=== PATIENT | male | born 1965 | race Caucasian/White ===

== ENCOUNTER 2024-05-23 14:08 | Outpatient (AMB) | payer OTHER, SELFPAY ==
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
[2024-05-23 14:25] VITALS: BP 148/82; PULSE 155; RESP 20; TEMP 36.8; O2SAT 98; BMI 29.3
== END 2024-05-23 15:14 | disposition home or self-care (01) ==
LOC: HO.HMCC 14:09
PROVIDERS: Visit Provider Internal Medicine
DX: M16.11 Unilateral primary osteoarthritis, right hip (principal); I47.10 Supraventricular tachycardia, unspecified; Z00.00 Encounter for general adult medical examination without abnormal findings

== ENCOUNTER → 2024-05-23 14:08 | Outpatient (BNVA) | payer OTHER, SELFPAY | PROVIDERS: Visit Provider Internal Medicine | DX: Z00.00 Encounter for general adult medical examination without abnormal findings (principal); M16.11 Unilateral primary osteoarthritis, right hip; I47.10 Supraventricular tachycardia, unspecified | CPT/HCPCS: 96127 ==

== ENCOUNTER 2024-06-02 12:25 | Outpatient (REF) | payer OTHER, SELFPAY ==
[2024-06-02 16:16] LABS: MANUAL DIFF FLAG NO
[2024-06-02 16:21] LABS: Appearance Urine Clear; Color Urine Yellow; Glucose Urine UA Negative (Negative); Leukocyte Esterase Urine Negative (Negative); Nitrite Urine Negative (Negative); PH 5.5 (5.0-9.0); UMIC TRIGGER UA YES; Urine Blood Trace (Negative); Urine Ketones Negative (Negative); Urine Protein 100 (2+) mg/dL (Neg-Trace)
[2024-06-02 16:25] LABS: Bacteria Urine None Seen (None Seen); Hyaline Casts Urine 0-2 /LPF (0-2); RBC Urine 0-2 /HPF (0-2); Squamous Epithelial Cell Urine 0-2 /HPF (0-2); WBC Urine 0-5 /HPF (0-5)
[2024-06-02 17:18] LABS: Basophils Absolute Auto 0.1 X10*3/uL (0.0-0.2); Basophils Percent Auto 0.9 % (0-2); Eosinophils Absolute Auto 0.3 X10*3/uL (0.0-0.4); Eosinophils Percent Auto 2.7 % (0-4); Hematocrit 35.9 % (42.0-52.0); Hemoglobin 11.7 g/dl (14.0-18.0); Imm Gran Abs Auto 0.06 X10*3/uL (0.00-0.03); Imm Gran Pct Auto 0.5 % (0.0-0.4); Lymphocytes Absolute Auto 4.5 X10*3/uL (1.2-4.9); Lymphocytes Percent Auto 36.3 % (20-40); Mean Corpuscular HGB Conc 32.6 g/dl (31.0-36.0); Mean Corpuscular Hemoglobin 28.4 pg (27.0-33.0); Mean Corpuscular Volume 87.1 fL (80.0-98.0); Mean Platelet Volume 11.6 fL (9.4-12.4); Monocytes Absolute Auto 0.7 X10*3/uL (0.1-1.2); Monocytes Percent Auto 5.4 % (2-11); Neutrophils Absolute Auto 6.7 x10*3/uL (2.0-8.3); Neutrophils Percent Auto 54.2 % (45-73); Platelet Count 337 X10*3/uL (160-400); Red Blood Count 4.12 X10*6/uL (4.60-5.80); Red Cell Distribution Width 15.9 % (11.0-16.0); White Blood Count 12.4 X10*3/uL (4.8-10.8)
[2024-06-02 17:19] LABS: PSA,Total (Free>4and<10) 1.51 ng/mL (0.00-4.00)
[2024-06-02 17:42] LABS: Alanine Aminotransferase 24 U/L (0-40); Albumin Level 4.7 g/dL (3.5-5.0); Anion Gap 21 (12-20); Aspartate Amino Transferase 19 U/L (5-37); Bilirubin Total 0.4 mg/dL (0.0-1.0); Blood Urea Nitrogen 99 mg/dL (9-16); Carbon Dioxide 17 mmol/L (22-29); Chloride 109 mmol/L (96-108); Cholesterol 277 mg/dL (<200); HDL Cholesterol 35 mg/dL (>40); LDL Cholesterol Calculated 164 mg/dL (<100); Potassium 4.6 mmol/L (3.3-5.1); Sodium 142 mmol/L (135-145); Total Protein 8.7 g/dL (6.5-8.0); Triglycerides 391 mg/dL (<150)
[2024-06-02 17:55] LABS: Alkaline Phosphatase 103 U/L (39-117); Estimated Glomerular Filt Rate 13; Glucose Fasting 115 mg/dL (60-99)
[2024-06-02 18:06] LABS: TSH reflex Free T4 1.95 uIU/mL (0.32-4.0)
== END 2024-06-02 12:26 | disposition home or self-care (01) ==
LOC: HO.HMGCLDS 12:25
PROVIDERS: PCP Internal Medicine; Visit Provider Internal Medicine
DX: Z00.00 Encounter for general adult medical examination without abnormal findings (principal); R00.0 Tachycardia, unspecified; Z12.5 Encounter for screening for malignant neoplasm of prostate; Z13.6 Encounter for screening for cardiovascular disorders
CPT/HCPCS: 36415; 80053; 80061; 81001; 84153; 84443; 85025

== ENCOUNTER 2024-06-08 10:47 | Outpatient (AMB) | payer OTHER, SELFPAY ==
[2024-06-08 11:26] VITALS: BP 132/86; PULSE 102; O2SAT 97; BMI 28.8
--- NOTE | 2024-06-08 11:26 | MHC.PC.OV ---
Vital Signs 06/08/24 11:26 Height 5 ft 10.87 in Weight 206 lb BMI 28.8 BP 132/86 Blood Pressure Location Rt brachial Position Sitting Pulse 102 H Pulse Source Pulse Oximeter Pulse Oximetry (%) 97 Oxygen Delivery Method Room Air Intake Visit Reasons: 2 weeks f/up Intake Note: Pt is here today for 2 weeks follow up visit. Allergies No Known Allergies Allergy (Verified 06/08/24 11:29) Medication List - Last Reconciled 06/08/24 by Talya Harrington MD allopurinol 100 mg PO DAILY aspirin 81 mg PO DAILY atorvastatin (Lipitor) 20 mg PO DAILY bisoprolol fumarate 7.5 mg (1.5 x 5 mg) PO DAILY calcitriol 0.5 mcg PO DAILY coenzyme Q10 (Ultra CoQ10) PO Tobacco use date assessed: 06/08/24 Dental Screening Dental Screen Date: 05/23/24 HPI 2 weeks f/up HPI Details Patient presents for follow-up of hypertension. Patient was found to have stage 3/5 chronic kidney disease on blood work. He was hospitalized at [facility] for 3 days and evaluated by chainstitch binder. Patient will have kidney biopsy next week but most likely the kidney disease is secondary to untreated hypertension for many years. Patient has been tolerating bisoprolol well. [facility] Medical History (Updated 06/08/24 @ 15:22 by Talya Harrington MD) Hypertension Osteoarthritis of right hip Tachycardia SVT (supraventricular tachycardia) FHx: colon cancer Hypertensive kidney disease, stage IV Hyperlipidemia Surgical History No pertinent past surgical history Family History Father Colon cancer, Onset Age: 77 Mother Breast CA, Onset Age: 66 Social History Household Members Other:: , Housing: House Patient Tobacco Use Status: Never used Tobacco e-Cigarette/Vaping Use: Never Used service: No Current occupational status: employed Cognitive needs: No Hearing needs: No Vision needs: Yes Questionnaire Thrive Questionnaire Date Thrive assessed: 05/23/24 I am a: Patient What is your living situation today?: I have a steady place to live Within the past 12 months, did the food you bought not last and you didn't have the money to get more?: Never true Within the past 12 months, did you worry whether your food would run out before you got money to buy more?: Never true Do you have trouble paying for medicines?: No Do you have trouble getting transportation to medical appointments?: No Do you have trouble paying your heating and electricity bill?: No Do you have trouble taking care of your child, family member or friend?: No Do you have trouble with day-to-day activities such as bathing, preparing meals, shopping, managing finances, etc.?: No Are you currently unemployed and looking for a job?: No Are you interested in more education?: No Please select the resources that you would like help with: None Currently or been in a relationship where the following occur: No concerns reported THRIVE Score: 0 JOVANA-7 AMB Questionnaire JOVAAN-7 Date JOVANA - 7 assessed: 05/23/24 Source: Developed by Drs. Peng Huston, Karen Menendez, Casper Omer and colleagues, with an educational cassia from [employer]. Review of Systems Const All systems reviewed & are unremarkable except as noted in HPI and below Eyes Reports no additional complaints ENT Reports no additional complaints Card Reports no additional complaints Resp Reports no additional complaints GI Reports no additional complaints Reports no additional complaints Physical exam (Primary Care) Vital Signs: Last Vital Signs Pulse 102 H 06/08/24 11:26 BP 132/86 06/08/24 11:26 Pulse Ox 97 06/08/24 11:26 Oxygen Delivery Method Room Air 06/08/24 11:26 BMI result Body Mass Index 28.8 Tobacco/Smoking Status: Tobacco use Status Tobacco use date assessed 06/08/24 06/08/24 11:30 Patient Tobacco Use Status Never used Tobacco 06/08/24 11:26 e-Cigarette/Vaping Use Never Used 06/08/24 11:26 Thrive Assessment: Date of Thrive Assessment Date Thrive assessed 05/23/24 06/08/24 11:26 Currently or been in a relationship where the following occur: No concerns reported Const General: no acute distress HENMT Head: Yes normal to inspection Eyes General: appearance normal, both eyes and all related structures Resp Effort & Inspection: normal respiratory effort Auscultation: clear to auscultation bilaterally Cardio Rhythm: regular rhythm Heart sounds: S1 normal heart sound present and S2 normal heart sound present GI Palpation (GI): Soft to palpation Percussion: Yes normal to percussion Auscultation: normal bowel sounds Coding Level of Care Code Est Pt Level 4 (11591) Diagnoses FHx: colon cancer Z80.0 Hypertensive kidney disease, stage IV I12.9; N18.4 Hyperlipidemia E78.5 Hypertension I10 Assessment & Plan Assessment & Plan (1) FHx: colon cancer: Comment: father Code(s): Z80.0 - Family history of malignant neoplasm of digestive organs Category: Medical Plan: Referred to GI for colonoscopy (2) Hypertensive kidney disease, stage IV: Comment: GFR 1305/2024, established with chainstitch binder will have kidney biopsy Code(s): I12.9 - Hypertensive chronic kidney disease with stage 1 through stage 4 chronic kidney disease, or unspecified chronic kidney disease; N18.4 - Chronic kidney disease, stage 4 (severe) Category: Medical Plan: Follow-up with nephrology (3) Hyperlipidemia: Code(s): E78.5 - Hyperlipidemia, unspecified Category: Medical Plan: Start 20 mg of atorvastatin check lipid profile in 1 month (4) Hypertension: Code(s): I10 - Essential (primary) hypertension Category: Medical Plan: Increase bisoprolol to 7.5 mg a day. Follow-up in 1 month Orders: Orders Lipid Panel 1 Month I47.10 - Supraventricular tachycardia, unspecified, Z00.00 - Encounter for general adult medical examination without abnormal findings Comprehensive [place]. Panel Fast 1 Month I47.10 - Supraventricular tachycardia, unspecified, Z00.00 - Encounter for general adult medical examination without abnormal findings Hemoglobin A1c 1 Month I47.10 - Supraventricular tachycardia, unspecified, Z00.00 - Encounter for general adult medical examination without abnormal findings Referrals Gastroenterology Referral Z80.0 - Family history of malignant neoplasm of digestive organs Medications: New atorvastatin (Lipitor) 20 mg PO DAILY 90 tabs 3RF calcitriol administer after dialysis on dialysis days 0.5 mcg PO DAILY 90 caps 0RF allopurinol 100 mg PO DAILY 90 tabs 1RF Changed From bisoprolol fumarate 5 mg PO DAILY 90 tabs 1RF To bisoprolol fumarate 7.5 mg (1.5 x 5 mg) PO DAILY 135 tabs 1RF Refilled bisoprolol fumarate 5 mg PO DAILY 90 tabs 1RF
--- OUTSIDE RECORDS SUMMARY | 2024-06-08 12:51 | XMS_ITS | Encounter Summary ---
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 sounds. No wheezing. Abdominal: General: Bowel sounds are normal. There is no distension. Palpations: Abdomen is soft. Tenderness: There is no abdominal tenderness. There is no guarding. Skin: General: Skin is warm. Neurological: Mental Status: He is alert. Psychiatric: Mood and Affect: Mood normal. Behavior: Behavior normal. LABS HEMATOLOGY Lab Results Component Value Date WBC 8.9 06/04/2024 HGB 10.1 (L) 06/04/2024 HCT 30.6 (L) 06/04/2024 MCV 86.2 06/04/2024 PLT 257 06/04/2024 CHEMISTRY Lab Results Component Value Date GLUCOSE 111 (H) 06/05/2024 NA 135 06/05/2024 K 3.4 (L) 06/05/2024 CO2 31 06/05/2024 CL 96 06/05/2024 BUN 82 (H) 06/05/2024 CREATININE 4.91 (H) 06/05/2024 EGFR 13 (L) 06/05/2024 CALCIUM 8.7 06/05/2024 MG 2.0 06/04/2024 ANIONGAP 8 06/05/2024 Imaging: CT Chest/Abdomen/Pelvis wo Contrast Narrative: CT CHEST, ABDOMEN AND PELVIS WITHOUT CONTRAST INDICATION: Acute kidney injury, Evaluate for Oncological cause TECHNIQUE: Chest, abdomen and pelvis CT without contrast. Multiplanar reformats were created and interpreted. The examination was performed utilizing dose reduction techniques. Total DLP: 1971 mGy/cm COMPARISON: No priors available. FINDINGS: CT CHEST: LUNGS/PLEURA: Central airways are patent. Lungs are clear. No pleural effusion or pneumothorax. MEDIASTINUM: Thyroid gland is unremarkable. No mediastinal or hilar lymphadenopathy. Cardiac chambers are normal in size. No pericardial effusion. Esophagus is normal with small hiatal hernia. CHEST WALL: No axillary lymphadenopathy or mass. CT ABDOMEN AND PELVIS: HEPATOBILIARY: No focal liver lesions. No cholelithiasis or biliary duct dilatation. SPLEEN: no focal lesion PANCREAS: No focal mass or ductal dilatation. ADRENALS: No nodules. KIDNEYS/URETERS: No hydronephrosis, stones, or solid mass. PELVIC ORGANS/BLADDER: Mildly distended bladder. Prostate calcifications. PERITONEUM / RETROPERITONEUM: No ascites or free air. No retroperitoneal lymphadenopathy. VESSELS: Scattered atherosclerotic calcifications throughout the aorta and its major branches. No aneurysm. GI TRACT: Mild thickening of the rectum presumably related to extension. No acute infectious or inflammatory process. Normal appendix. BONES AND SOFT TISSUES: Scattered degenerative changes seen throughout the bones. Severe degenerative changes of the right greater than left hip possible avascular necrosis. No acute fracture. Soft tissues are unremarkable. Fat- containing right inguinal hernia Impression: Negative noncontrast CT. No hydronephrosis. -------- FINAL REPORT -------- Dictated By: Mikey Gonzales Dictated Date: 06/03/2024 12:36 ET Assigned Physician: Mikey Gonzales Reviewed and Electronically Signed By: Mikey Gonzales Signed Date: 06/03/2024 12:44 ET Workstation ID: [id number] Transcribed By: Self Edit Transcribed Date: 06/03/2024 12:36 ET US Retroperitoneal Complete Narrative: PROCEDURE: Renal ultrasound. HISTORY: renal failure. TECHNIQUE: Grayscale, color Doppler, and spectral Doppler ultrasound of the kidneys. COMPARISON: None. FINDINGS: The right kidney measures 8 cm craniocaudal and the left measures 8.3 cm craniocaudal. Bilateral echogenic parenchyma suggestive of medical renal disease. There are several small hypoechoic cortical lesions suggestive of cysts. No hydronephrosis. Echogenic shadowing areas in both renal cortices suggesting dystrophic calcifications. Some are associated with the above-noted cysts and may represent layering milk of calcium. The urinary bladder is underdistended, limiting assessment, with possible mural thickening and trabeculation. Both ureteral jets visualized. Enlarged prostate gland with a calculated volume of 66 mL. Impression: 1. Echogenic renal parenchyma suggestive of medical renal disease. No hydronephrosis. 2. Small bilateral cortical cysts. 3. Echogenic areas in both renal cortices suggesting dystrophic calcifications and layering milk ofcalcium within cysts. 4. Enlarged prostate gland. -------- FINAL REPORT -------- Dictated By: Ronaldo Briseno Dictated Date: 06/03/2024 10:32 ET Assigned Physician: Ronaldo Briseno Reviewed and Electronically Signed By: Ronaldo Briseno Signed Date: 06/03/2024 10:35 ET Workstation ID: [id number] Transcribed By: Self Edit Transcribed Date: 06/03/2024 10:32 ET ASSESSMENT & PLAN Patient is 58 years old female with past medical history significant for going, came to the hospital with elevated creatinine. Patient admitted to medical floors for management of acute kidney injury. # Acute kidney injury # Suspect progressive chronic kidney disease - Patient noted with elevated creatinine 5.21 upon presentation, ultrasound retroperitoneal showed a echogenic renal parenchyma suggestive of medical renal disease. Also noted enlarged prostate gland. - CT chest abdomen pelvis showed no hydronephrosis. - Patient reports no obstructive urinary symptoms. - Nephrology consulted and ordered workup. Patient noted to have elevated uric acid levels 9.6, serum ferritin 164, vitamin D 88.9, PTH 561. - LIBBY negative. Hepatitis profile negative, normal C3, C4 - Continue with sodium bicarb infusion per nephrology recommendations - Continue with calcitriol 0.5 mcg daily, patient will likely need kidney biopsy # Normocytic anemia, suspect anemia of chronic disease in the setting of chronic kidney disease. - Hemoglobin stable at 10.1. MCV 86.2. Serum ferritin 164. Monitor H&H closely. Stool occult blood is pending # History of gout - Patient reports history of gout, and takes colchicine for acute flares and is on allopurinol (takes every 2 days), reports history of gout in left foot and left knee, gets acute flare about twice ayear. Patient's by the bedside, informed that patient does not see a PCP and the gout medications are from [place]. - Patient not having acute flare of gout. Patient will need primary care physician follow-up. Unable to start allopurinol given the renal function. # DVT prophylaxis - On heparin subcu # Disposition -Transfer to [facility]. Discharge pending completion of nephrology workup. Total time spent 35 minutes doing chart review, interviewing patient, gathering information, performing physical exam, formulating plan, explaining management plan to patient, coordinating care with specialists, coordinating care with RN, documentation and placing orders. * Tess Mack RN - 06/05/2024 4:10 AM EDT Goals: Identify possible barriers to meeting goals/advancing plan of care: Abnormal kidney functions labs Stability of the patient: Moderately Stable - Low risk of patient condition declining or worsening End of Shift Summary: no any events, rested well @ night * Anibal Riley MD - 06/04/2024 2:13 PM EDT Images from the original note were not included. Progress Note CHIEF COMPLAINT F/u SUBJECTIVE Patient seen and examined MEDICAL HISTORY History reviewed. No pertinent past medical history. MEDICATIONS bisoprolol, 5 mg, oral, Daily heparin (porcine), 5,000 Units, subcutaneous, q8h ONDINA sodium chloride, 10 mL, intravenous, BID PRN medications: acetaminophen, LORazepam, ondansetron, Insert peripheral IV AND Maintain IV access AND Saline lock IV AND sodium chloride AND sodium chloride sodium bicarbonate, 150 mEq, Last Rate: 150 mEq (06/04/24 0535) OBJECTIVE Vital signs in last 24 hours: Visit Vitals BP (!) 125/91 (BP Location: Right arm, Patient Position: Sitting) Pulse 91 Temp 36.7 ??C (98.1 ??F) (Temporal) Resp 13 Intake/Output last 24 hours: Intake/Output Summary (Last 24 hours) at 06/04/2024 1413 Last data filed at 06/03/2024 1700 Gross per 24 hour Intake 196.25 ml Output 400 ml Net -203.75 ml Weights: Admission Weight: Weight: 94 kg (207 lb 3.7 oz) Wt Readings from Last 3 Encounters: 06/03/24 94 kg (207 lb 3.7 oz) Physical Exam: General: No acute distress HEENT: Normocephalic, atraumatic, anicteric Cardiovascular: S1 S2 normal Respiratory: unlabored Gl: soft non-distended Extremities: No cyanosis Neurological: Alert Integumentary: no rash Psych: Calm, cooperative LABS Results from last 7 days Lab Units 06/04/24 0632 06/03/24 1031 WBC AUTO K/mcL 8.9 11.4* HEMOGLOBIN g/dL 10.1* 11.5* HEMATOCRIT % 30.6* 36.0* MCV FL 86.2 88.2 PLATELETS K/mcL 257 327 Results from last 7 days Lab Units 06/04/24 0633 06/03/24 1031 CREATININE mg/dL 4.82* 5.21* BUN mg/dL 89* 90* SODIUM mmol/L 136 138 POTASSIUM mmol/L 3.8 4.4 CHLORIDE mmol/L 104 107 CO2 mmol/L 24 16* PTH Date Value Ref Range Status 06/04/2024 561.5 (H) 18.5 - 88.0 pcg/mL Final Comment: Results verified by repeat testing Iron Date Value Ref Range Status 06/04/2024 97 50 - 160 mcg/dL Final TIBC Date Value Ref Range Status 06/04/2024 260 250 - 450 mcg/dL Final Ferritin Date Value Ref Range Status 06/04/2024 164 26 - 388 ng/mL Final No results found for: COLORUA , CLARITYUA , SPECGRAVUA , PHUA , PROTUA , GLUCOSEUA , KETONESUA , BILIRUBINUA , BLOODUA , UROBILINOGUA , NITRITEUA IMPRESSION and PLAN FARHEEN HTN Anemia CKD FARHEEN versus advanced CKD Renal US negative for hydronephrosis but c/w CKD Elevated iPTH (561) suggestive of advanced CKD LIBBY negative Normal C3/C4 Hepatitis profile negative 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 MERLY[facility] PROGRESS NOTE Date: 06/04/2024 Author: Francisco Abreu MD Patient ID: Barry Carter is a 58 y.o. male : 1965 MR#: [id number] SUBJECTIVE Subjective Patient seen by the bedside this morning. No acute events overnight. Patient's by the bedside.Discussed about management plan. Patient denied any new complaints, does not have any obstructive urinary symptoms, denied burning micturition or increased frequency or difficulty urination. Denied chest pain or palpitations. Allergies Patient has no known allergies. Current Medications: bisoprolol, 5 mg, oral, Daily heparin (porcine), 5,000 Units, subcutaneous, q8h ONDINA sodium chloride, 10 mL, intravenous, BID sodium bicarbonate, 150 mEq, Last Rate: 150 mEq (06/04/24 0535) PRN medications: acetaminophen, LORazepam, ondansetron, Insert peripheral IV AND Maintain IV access AND Saline lock IV AND sodium chloride AND sodium chloride OBJECTIVE Vitals: 06/03/24 2316 06/04/24 0324 06/04/24 0815 06/04/24 1130 BP: 113/85 125/79 (!) 128/94 (!) 125/91 BP Location: Right arm Right arm Right arm Right arm Patient Position: Lying Lying Lying Sitting Pulse: 88 81 85 91 Resp: 18 18 12 13 Temp: 37 ??C (98.6 ??F) 36.7 ??C (98 ??F) 36.6 ??C (97.8 ??F) 36.7 ??C (98.1 ??F) TempSrc: Skin Temporal Temporal Temporal SpO2: 98% 97% 98% 97% Weight: Height: Physical Exam Constitutional: General: He is not in acute distress. Appearance: Normal appearance. He is not ill-appearing. HENT: Head: Normocephalic and atraumatic. Eyes: Conjunctiva/sclera: Conjunctivae normal. Cardiovascular: Rate and Rhythm: Normal rate and regular rhythm. Pulses: Normal pulses. Heart sounds: Normal heart sounds. Pulmonary: Effort: Pulmonary effort is normal. No respiratory distress. Breath sounds: Normal breath sounds. No wheezing. Abdominal: General: Bowel sounds are normal. There is no distension. Palpations: Abdomen is soft. Tenderness: There is no abdominal tenderness. There is no guarding. Skin: General: Skin is warm. Neurological: Mental Status: He is alert. Psychiatric: Mood and Affect: Mood normal. Behavior: Behavior normal. LABS HEMATOLOGY Lab Results Component Value Date WBC 8.9 06/04/2024 HGB 10.1 (L) 06/04/2024 HCT 30.6 (L) 06/04/2024 MCV 86.2 06/04/2024 PLT 257 06/04/2024 CHEMISTRY Lab Results Component Value Date GLUCOSE 104 (H) 06/04/2024 NA 136 06/04/2024 K 3.8 06/04/2024 CO2 24 06/04/2024 CL 104 06/04/2024 BUN 89 (H) 06/04/2024 CREATININE 4.82 (H) 06/04/2024 EGFR 13 (L) 06/04/2024 CALCIUM 8.7 06/04/2024 MG 2.0 06/04/2024 ANIONGAP 8 06/04/2024 Imaging: CT Chest/Abdomen/Pelvis wo Contrast Narrative: CT CHEST, ABDOMEN AND PELVIS WITHOUT CONTRAST INDICATION: Acute kidney injury, Evaluate for Oncological cause TECHNIQUE: Chest, abdomen and pelvis CT without contrast. Multiplanar reformats were created and interpreted. The examination was performed utilizing dose reduction techniques. Total DLP: 1971 mGy/cm COMPARISON: No priors available. FINDINGS: CT CHEST: LUNGS/PLEURA: Central airways are patent. Lungs are clear. No pleural effusion or pneumothorax. MEDIASTINUM: Thyroid gland is unremarkable. No mediastinal or hilar lymphadenopathy. Cardiac chambers are normal in size. No pericardial effusion. Esophagus is normal with small hiatal hernia. CHEST WALL: No axillary lymphadenopathy or mass. CT ABDOMEN AND PELVIS: HEPATOBILIARY: No focal liver lesions. No cholelithiasis or biliary duct dilatation. SPLEEN: no focal lesion PANCREAS: No focal mass or ductal dilatation. ADRENALS: No nodules. KIDNEYS/URETERS: No hydronephrosis, stones, or solid mass. PELVIC ORGANS/BLADDER: Mildly distended bladder. Prostate calcifications. PERITONEUM / RETROPERITONEUM: No ascites or free air. No retroperitoneal lymphadenopathy. VESSELS: Scattered atherosclerotic calcifications throughout the aorta and its major branches. No aneurysm. GI TRACT: Mild thickening of the rectum presumably related to extension. No acute infectious or inflammatory process. Normal appendix. BONES AND SOFT TISSUES: Scattered degenerative changes seen throughout the bones. Severe degenerative changes of the right greater than left hip possible avascular necrosis. No acute fracture. Soft tissues are unremarkable. Fat- containing right inguinal hernia Impression: Negative noncontrast CT. No hydronephrosis. -------- FINAL REPORT -------- Dictated By: Mikey Gonzales Dictated Date: 06/03/2024 12:36 ET Assigned Physician: Mikey Gonzales Reviewed and Electronically Signed By: Mikey Gonzales Signed Date: 06/03/2024 12:44 ET Workstation ID: [id number] Transcribed By: Self Edit Transcribed Date: 06/03/2024 12:36 ET US Retroperitoneal Complete Narrative: PROCEDURE: Renal ultrasound. HISTORY: renal failure. TECHNIQUE: Grayscale, color Doppler, and spectral Doppler ultrasound of the kidneys. COMPARISON: None. FINDINGS: The right kidney measures 8 cm craniocaudal and the left measures 8.3 cm craniocaudal. Bilateral echogenic parenchyma suggestive of medical renal disease. There are several small hypoechoic cortical lesions suggestive of cysts. No hydronephrosis. Echogenic shadowing areas in both renal cortices suggesting dystrophic calcifications. Some are associated with the above-noted cysts and may represent layering milk of calcium. The urinary bladder is underdistended, limiting assessment, with possible mural thickening and trabeculation. Both ureteral jets visualized. Enlarged prostate gland with a calculated volume of 66 mL. Impression: 1. Echogenic renal parenchyma suggestive of medical renal disease. No hydronephrosis. 2. Small bilateral cortical cysts. 3. Echogenic areas in both renal cortices suggesting dystrophic calcifications and layering milk ofcalcium within cysts. 4. Enlarged prostate gland. -------- FINAL REPORT -------- Dictated By: Ronaldo Briseno Dictated Date: 06/03/2024 10:32 ET Assigned Physician: Ronaldo Briseno Reviewed and Electronically Signed By: Ronaldo Briseno Signed Date: 06/03/2024 10:35 ET Workstation ID: [id number] Transcribed By: Self Edit Transcribed Date: 06/03/2024 10:32 ET ASSESSMENT & PLAN Patient is 58 years old female with past medical history significant for going, came to the hospital with elevated creatinine. Patient admitted to medical floors for management of acute kidney injury. # Acute kidney injury # Suspect progressive chronic kidney disease - Patient noted with elevated creatinine 5.21 upon presentation, ultrasound retroperitoneal showed a echogenic renal parenchyma suggestive of medical renal disease. Also noted enlarged prostate gland. - CT chest abdomen pelvis showed no hydronephrosis. - Patient reports no obstructive urinary symptoms. - Nephrology consulted and ordered workup. Patient noted to have elevated uric acid levels 9.6, serum ferritin 164, vitamin D 88.9, PTH 561. - Pending autoimmune workup. - Continue with sodium bicarb infusion per nephrology recommendations # Normocytic anemia, suspect anemia of chronic disease in the setting of chronic kidney disease. - Hemoglobin stable at 10.1. MCV 86.2. Serum ferritin 164. Monitor H&H closely. Will request stool occult blood test.. # History of gout - Patient reports history of gout, and takes colchicine for acute flares and is on allopurinol (takes every 2 days), reports history of gout in left foot and left knee, gets acute flare about twice ayear. Patient's by the bedside, informed that patient does not see a PCP and the gout medications are from [place]. - Patient not having acute flare of gout today. Patient will need primary care physician follow-up. # DVT prophylaxis - On heparin subcu # Disposition - Pending clinical stability. Can transfer to [facility] today. Total time spent minutes doing chart review, interviewing patient, gathering information, performing physical exam, formulating plan, explaining management plan to patient, coordinating care with specialists, coordinating care with RN, documentation and placing orders. * Penelope Peters RN - 06/03/2024 4:20 PM EDT 06/03/24 1620 Initial Transition Plan Initial Transition Plan Home Discharge Planning Living Arrangements Spouse/significant other Type of Residence Private residence Assistive Devices None Support Systems Spouse/significant other Medication Coverage Has Med Coverage Under Insurance Plan Yes Medication Affordability No concerns related to payment for meds Informed Choice Informed Choice Given? Yes IRAIS: 06/05-06/06 Barrier: creatinine 5.21, nephrology following Plan: home self * Jeremy Barrera RN - 06/03/2024 3:09 PM EDT ED RN HANDOFF (All Vo Below Must Be Completed) Reason/Diagnosis for Admission: This a 58-year-old male medical history of gout and recent diagnosis of hypertension on bisoprolol which was initiated recently presented to ER today for evaluation of elevated creatinine. Patient had outpatient lab work performed which shows a creatinine of 4.6. Patient also have BUN inthe 90s. Patient is asymptomatic at this time. He is not complain of any urinary retention. He is still making urine at this time. Patient is not complain any fever. No shortness of breath noswelling. No history of kidney issues in the past he does take medication for his gout every other day. Patient is at bedside to provide further history as well. He speaks [place] and patient helps with translation. She states that she is going to bring the medication he was taking at home Patient states he does wake up in the middle night twice to urinate. Denies any flank pain. He apparently has not seen a doctor for more than 8 years. There is no baseline creatinines on thispatient. He denies any history of renal stones. He denies any family history of kidney disease. 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 BSA 2.03 m?? Current Mental Status: A/O x [x]4, []3, []2, []1 Current Ambulation Status: ambulatory IV Access: [x] Yes / [] No Field IV present: [] Yes / [x] No Hx of Violence: [] Yes / [x] No / [] Unknown Fall Risk:[] Yes / [x] No Yellow Bracelet Applied [] Yes / [] No Yellow Socks Applied [] Yes / [] No Patient Belongings inventoried and BL completed: [x] Yes / [] No Patient belongings stored in the security closet: [] Yes (If Yes please supply Security bag #): [] No Patient Medications stored in Pharmacy: [] Yes (If Yes please supply Medication Security bag #): [] No ED Summary of Care: 500ml bolus, sodium bicarb @ 75ml/hr Submitted by and Phone Extension: blue * Ronaldo Morales RN - 06/03/2024 9:34 AM EDT Patient was told to come to e,r for elevated kidney function * Regina Oconnell DO - 06/03/2024 9:32 AM EDT Emergency Medicine Note Patient Name: Barry Carter Initial Evaluation: 06/03/2024 : 1965 Patient's PCP: Pcp Unknown Physician Emergency Physician: Regina Oconnell DO History of Present Illness Chief Complaint: Chief Complaint Patient presents with abnormal labs Per pcp was told to come in for elevated kidney function HPI: This a 58-year-old male medical history of gout presented to ER today for evaluation of elevated creatinine. Patient had outpatient lab work performed which shows a creatinine of 4.6. Patient also have BUN in the 90s. Patient is asymptomatic at this time. He is not complain of any urinary retention. He is still making urine at this time. Patient is not complain any fever. No shortness of breath no swelling. No history of kidney issues in the past he does take medication for his gout every other day. Patient is at bedside to provide further history as well. Patient states he does wake up in the middle night twice to urinate. Denies any flank pain. Patient did have a urine sample which shows proteinuria as well. ROS: I have performed a ROS with the pertinent positives and negatives documented in the history ofpresent illness. Previous History History reviewed. No pertinent past medical history. History reviewed. No pertinent surgical history. No family history on file. has No Known Allergies. No current facility-administered medications on file prior to encounter. Current Outpatient Medications on File Prior to Encounter Medication Sig Dispense Refill aspirin 81 mg EC tablet Take 1 tablet (81 mg total) by mouth 1 (one) time each day. bisoprolol (ZEBETA) 5 mg tablet Take 1 tablet (5 mg total) by mouth 1 (one) time each day. LORazepam (ATIVAN) 0.5 mg tablet Take 1 tablet (0.5 mg total) by mouth 1 (one) time each day if needed for anxiety. Max Daily Amount: 0.5 mg Physical Exam ED Triage Vitals [06/03/24 0939] Temp Heart Rate Resp BP 37.4 ??C (99.3 ??F) (!) 120 16 (!) 164/96 SpO2 Temp Source Heart Rate Source Patient Position 98 % Oral -- -- BP Location FiO2 (%) -- -- General: Pleasant, no distress, interacting appropriately Head: Normacephalic, atraumatic ENT: oral mucosa moist, neck supple, no tracheal deviation Cardiovascular: regular rate, regular rhythm, no murmurs, rubbing, gallops Respiratory: CTAB, no wheeze, rales, rhonchi Gastrointestinal: Soft, non distended, non tender, non guarding Extremities: No limb pain or swelling, no calf tenderness Neurological: Awake and alert, no facial droop noted Skin: Warm and dry Psychiatric: Appropriate mood and thoughts Results Labs Reviewed COMPREHENSIVE METABOLIC PANEL - Abnormal Result Value Sodium 138 Potassium 4.4 Chloride 107 CO2 16 (*) Anion Gap 15 (*) Glucose 157 (*) BUN 90 (*) Creatinine 5.21 (*) eGFR 12 (*) BUN/Creatinine Ratio 17.3 Calcium 10.3 AST (SGOT) 20 ALT (SGPT) 28 Alkaline Phosphatase 115 Total Protein 8.3 (*) Albumin 4.2 Total Bilirubin 0.4 CBC WITH AUTO DIFFERENTIAL - Abnormal WBC 11.4 (*) RBC 4.10 (*) Hemoglobin 11.5 (*) Hematocrit 36.0 (*) MCV 88.2 MCH 28.2 MCHC 31.9 (*) RDW 15.8 (*) Platelets 327 MPV 11.1 (*) NRBC 0.0 NRBC Absolute 0.00 Neutrophils Relative 67.2 Lymphocytes Relative 23.7 Monocytes Relative 6.2 Eosinophils Relative 1.3 Basophils Relative 0.9 Immature Granulocytes Relative 0.7 Neutrophils Absolute 7.68 (*) Lymphocytes Absolute 2.71 Monocytes Absolute 0.71 Eosinophils Absolute 0.15 Basophils Absolute 0.10 Immature Granulocytes Absolute 0.08 (*) VENOUS BLOOD GAS - Abnormal pH, Natalio 7.28 (*) pCO2, Natalio 36 (*) pO2, Natalio 43 (*) HCO3, Venous 17.2 (*) O2 Sat, Natalio 73.7 Base Excess, Natalio -9.1 (*) LACTATE - Abnormal Lactate 2.7 (*) MAGNESIUM - Normal Magnesium 2.2 TROPONIN I HIGH SENSITIVITY - Normal High Sensitivity Troponin I 12 Narrative: High levels of biotin in samples may falsely decrease hsTroponin values. Use caution when interpreting hsTroponin results in patients taking biotin who exhibit renal impairment (eGFR <60) or in patients taking more than 20 mg/day of biotin. B-TYPE NATRIURETIC PEPTIDE - Normal BNP 20 CBC AND DIFFERENTIAL Narrative: The following orders were created for panel order CBC and differential. Procedure Abnormality Status --------- ------ CBC auto differential[[id number]] Abnormal Final result Please view results for these tests on the individual orders. URINALYSIS WITH REFLEX MICROSCOPIC AND CULTURE Narrative: The following orders were created for panel order Urinalysis with reflex microscopic and culture. Procedure Abnormality Status --------- ------ Urinalysis with reflex ...[[id number]] Smlal urine culture tube[[id number]] Please view results for these tests on the individual orders. URINALYSIS WITH REFLEX MICROSCOPIC AND CULTURE Abnormal Labs Reviewed COMPREHENSIVE METABOLIC PANEL - Abnormal; Notable for the following components: Result Value CO2 16 (*) Anion Gap 15 (*) Glucose 157 (*) BUN 90 (*) Creatinine 5.21 (*) eGFR 12 (*) Total Protein 8.3 (*) All other components within normal limits CBC WITH AUTO DIFFERENTIAL - Abnormal; Notable for the following components: WBC 11.4 (*) RBC 4.10 (*) Hemoglobin 11.5 (*) Hematocrit 36.0 (*) MCHC 31.9 (*) RDW 15.8 (*) MPV 11.1 (*) Neutrophils Absolute 7.68 (*) Immature Granulocytes Absolute 0.08 (*) All other components within normal limits VENOUS BLOOD GAS - Abnormal; Notable for the following components: pH, Natalio 7.28 (*) pCO2, Natalio 36 (*) pO2, Natalio 43 (*) HCO3, Venous 17.2 (*) Base Excess, Natalio -9.1 (*) All other components within normal limits LACTATE - Abnormal; Notable for the following components: Lactate 2.7 (*) All other components within normal limits US Retroperitoneal Complete Final Result 1. Echogenic renal parenchyma suggestive of medical renal disease. No hydronephrosis. 2. Small bilateral cortical cysts. 3. Echogenic areas in both renal cortices suggesting dystrophic calcifications and layering milk ofcalcium within cysts. 4. Enlarged prostate gland. -------- FINAL REPORT -------- Dictated By: Ronaldo Briseno Dictated Date: 06/03/2024 10:32 ET Assigned Physician: Ronaldo Briseno Reviewed and Electronically Signed By: Ronaldo Briseno Signed Date: 06/03/2024 10:35 ET Workstation ID: [id number] Transcribed By: Self Edit Transcribed Date: 06/03/2024 10:[address] Chest/Abdomen/Pelvis wo Contrast (Results Pending) I have discussed the incidental/abnormal imaging and/or lab abnormalities with the patient and haveinstructed them the need for further evaluation and workup with their primary care doctor. I have provided the patient with a paper copy of the abnormality. The laboratory results, imaging results and other diagnostic exam results were reviewed in the EMR. EKG Interpretation Critical Care Time Authorized and Performed by: Regina Oconnell Total critical care time: 32 minutes Diagnosis: Acute Renal Failure Due to a high probability of clinically significant, life threatening deterioration, the patient required my highest level of preparedness to intervene emergently and I personally spent this criticalcare time directly and personally managing the patient. This critical care time included obtaining a history; examining the patient; pulse oximetry; ordering and review of studies; arranging urgent treatment with development of a management plan; evaluation of patient's response to treatment; frequent reassessment; and, discussions with other providers. This critical care time was performed to assess and manage the high probability of imminent, life-threatening deterioration that could result in multi-organ failure. It was exclusive of separately billable procedures and treating other patients and teaching time. See [facility] for details ? Medical Decision Making Medications sodium chloride 0.9 % bolus 500 mL (500 mL intravenous New Bag 06/03/24 1054) ED Course as of 06/03/24 1147 ThuJun 03, 2024 1052 This is a 58-year-old male history of gout presenting ER today for evaluation of elevated creatinine and elevated BUN on outpatient lab work. Patient has no symptoms at this time he is currently making urine. I discussed with Dr. Tay the GI doctor with form he had reach out to nephrology team and spoken to Dr. Nicole who recommended patient be admitted for further workup. Patient potassium on outpatient lab work was 4.6. He still making urine at this time. Will repeat his lab work and add VBG, lactic acid. He did have an elevated anion gap of 21. Patient does have signs of proteinuria and hematuria. This may be nephritis in nature as well. Patient does admit to taking naproxen for his hip pain. This may be medication induced as well. Will plan to admit patient to the hospital at this time. 500 IV fluid will be given. [TC] 1146 I have independent reviewed patient lab work. Patient chemistry did show elevated creatinine at 5.2. Lactic is elevated 2.7. Patient does have anion gap of 15. Glucose elevated 157 BUN of 90. Patient VBG shows a pH of 7.28. He does have signs of metabolic acidosis. Troponin is negative. Slightbump in white count at 11.4. Patient renal ultrasound shows signs of medical renal disease. Small bilateral cortical cyst. An enlarged prostate gland. Patient is still making urine. I have low suspicion of urinary retention or obstructive acute kidney injury. I did contacted the vacuum frame operator. Will plan to admit patient for further renal workup. potassium level is 4.4 stable currently. I did order a CT abdomen chest and pelvis to evaluate for possible oncological cause of his renal failure. This will be performed without IV contrast due to his acute kidney injury. [TC] ED Course User Index [TC] Regina Oconnell, DO Clinical Impressions as of 06/03/24 1147 Renal failure, unspecified chronicity Uremia Procedures Procedures Diagnosis 1. Renal failure, unspecified chronicity 2. Uremia Disposition Admit to Inpatient ED Prescriptions None Physician Attestation Alexisshannan Mckinley Oconnell, 06/03/24 0959 Alexisshannan Mckinley Oconnell DO 06/03/24 1052 Regina Gamboa Oconnell, 06/03/24 1147 documented in this encounter Consult Notes * Manuel Nicole MD - 06/03/2024 1:45 PM EDT Images from the original note were not included. Reason for Consultation: Elevated creatinine level History of Present Illness: This a 58-year-old male medical history of gout and recent diagnosis of hypertension on bisoprolol which was initiated recently presented to ER today for evaluation of elevated creatinine. Patient had outpatient lab work performed which shows a creatinine of 4.6. Patient also have BUN inthe 90s. Patient is asymptomatic at this time. He is not complain of any urinary retention. He is still making urine at this time. Patient is not complain any fever. No shortness of breath noswelling. No history of kidney issues in the past he does take medication for his gout every other day. Patient is at bedside to provide further history as well. He speaks Chadian and patient helps with translation. She states that she is going to bring the medication he was taking at home Patient states he does wake up in the middle night twice to urinate. Denies any flank pain. He apparently has not seen a doctor for more than 8 years. There is no baseline creatinines on thispatient. He denies any history of renal stones. He denies any family history of kidney disease. No history of diabetes He has history of hypertension but he has not checked his blood pressure until recently SUBJECTIVE Review of Systems General: Denies fever or chills. Lungs: Denies cough, shortness of breath, chest congestion. Heart: Denies chest pain, palpitations, orthopnea, dyspnea on exertion, or edema. Abdomen: Denies change in appetite, nausea, vomiting, diarrhea, or constipation, or abdominal pain. : Denies hesitancy, frequency, burning with urination, or blood in urine. Musculoskeletal: Denies muscle pain or weakness, denies any joint swelling. Skin: Denies skin changes, rashes, or open lesions. History reviewed. No pertinent past medical history. History reviewed. No pertinent surgical history. Social History Socioeconomic History ??? Marital status: Spouse name: Not on file ??? Number of children: Not on file ??? Years of education: Not on file ??? Highest education level: Not on file Occupational History ??? Not on file Tobacco Use ??? Smoking status: Not on file ??? Smokeless tobacco: Not on file Substance and Sexual Activity ??? Alcohol use: Not on file ??? Drug use: Not on file ??? Sexual activity: Not on file Other Topics Concern ??? Not on file Social History Narrative ??? Not on file No family history on file. Home Medications aspirin 81 mg EC tablet Take 1 tablet (81 mg total) by mouth 1 (one) time each day. bisoprolol (ZEBETA) 5 mg tablet Take 1 tablet (5 mg total) by mouth 1 (one) time each day. LORazepam (ATIVAN) 0.5 mg tablet Take 1 tablet (0.5 mg total) by mouth 1 (one) time each day if needed for anxiety. Max Daily Amount: 0.5 mg Allergies: No Known Allergies Current Medications: sodium chloride, 10 mL, intravenous, BID sodium bicarbonate, 150 mEq sodium chloride, 125 mL/hr PRN medications: acetaminophen, ondansetron, Insert peripheral IV AND Maintain IV access AND Saline lock IV AND sodium chloride AND sodium chloride OBJECTIVE Physical Exam: Current Vitals: Blood pressure (!) 164/96, pulse (!) 120, temperature 37.4 ??C (99.3 ??F), temperature source Oral,resp. rate 16, height 1.676 m (66 ), weight 94 kg (207 lb 3.7 oz), SpO2 98%. Intake/Output: No intake/output data recorded. General : Lying comfortably in bed in no acute distress HEENT: Normocephalic, sclerae anicteric, buccal mucosa moist no oral lesions Neck: Supple, symmetrical, trachea midline, no JVD Lungs: Clear to auscultation bilaterally, respirations unlabored Chest wall: No tenderness or deformity Heart: Regular rate and rhythm. No murmurs. No JVD. No hepatojugular reflux. Abdomen: Soft, non-tender, bowel sounds active all four quadrants. Extremities: Extremities normal, atraumatic, no cyanosis or edema Pulses: 2+ and symmetric all extremities Skin: Skin warm, dry, and intact with no visible rashes, petechia, or icterus. Neurologic: Awake, alert, appropriate. No overt focal deficits. Laboratory Data: Urine No results found for: COLORUA , CLARITYUA , SPECGRAVUA , PHUA , PROTUA , GLUCOSEUA , KETONESUA , BILIRUBINUA , BLOODUA , UROBILINOGUA , NITRITEUA No results found for: MICROALBUR , [id number] CBC Results from last 7 days Lab Units 06/03/24 1031 WBC AUTO K/mcL 11.4* HEMOGLOBIN g/dL 11.5* HEMATOCRIT % 36.0* PLATELETS K/mcL 327 CMP Results from last 7 days Lab Units 06/03/24 1031 SODIUM mmol/L 138 POTASSIUM mmol/L 4.4 CHLORIDE mmol/L 107 CO2 mmol/L 16* BUN mg/dL 90* CREATININE mg/dL 5.21* EGFR mL/min/1.73m2 12* GLUCOSE mg/dL 157* CALCIUM mg/dL 10.3 Anemia MBD No results found for: IRON , TIBC , FERRITIN Lab Results Component Value Date CALCIUM 10.3 06/03/2024 ASSESSMENT AND PLAN Acute kidney injury versus acute on chronic kidney disease versus progressive CKD We do not have any baseline creatinines on this patient I reviewed renal ultrasound and his kidney sizes are around 8 cm with increased cortical echogenicity in this could be chronic hypertensive renal disease/undiagnosed hypertension Obstruction has been ruled out on this patient We also need to rule out other causes/interstitial/glomerular disease Clinically patient does not look prerenal 2. Question of CKD at baseline 3. Recently diagnosed hypertension but he could have had hypertension for many years 4. Non-anion gap metabolic acidosis in the setting of severe renal failure 5. Mild anemia I have ordered spot urine for electrolytes protein creatinine Will calculate protein creatinine ratio IV fluids with sodium bicarb x 1 day Workup for anemia has been ordered including iron stores and immunofixation Serum free light chains ordered Full serological workup ordered Can use amlodipine for hypertension control. Can also use beta-blockers Avoid IRAM inhibitor/ARB at this juncture Workup for second hyperparathyroidism including calcium, phosphorus and PTH levels been ordered Coagulation profile ordered Based on the above studies /urine protein levels he might require renal biopsy Discussed with the patient patient in detail at bedside -Avoid nephrotoxins, such as NSAIDs, iodinated contrast, and phosphate enema, as able. . -Dose all mediations for appropriate eGFR Thank you again for the consultation on your patient, we will be happy to follow along with you. documented in this encounter Plan of Treatment Upcoming Encounters Date Type Department Care Team (Late st Contact Info) Description 06/13/2024 8:00 AM EDT Appointment [facility] Interventional Radiology [address] [place] [address] Scheduled Orders Name Type Priority Associated Diagnoses Orde r Schedule IR Bx Ndl Renal Perc Left Imaging Routine Once for 1 Occur rences starting 06/06/2024 until 06/06/2024 documented as of this encounter Procedures Procedure Name Priority Date/Time Associated Diagnosis Comments ECG ANNOTATED 06/07/2024 CBC WITH AUTO DIFFERENTIAL Routine 06/06/2024 5:47 AM EDT CBC AND DIFFERENTIAL Routine 06/06/2024 5:47 AM EDT PHOSPHORUS Routine 06/06/2024 5:47 AM EDT MAGNESIUM Routine 06/06/2024 5:47 AM EDT BASIC METABOLIC PANEL Routine 06/06/2024 5:47 AM EDT BASIC METABOLIC PANEL Routine 06/05/2024 8:19 AM EDT MICROALBUMIN CREATININE URINE RATIO Routine 06/04/2024 5:48 PM EDT SMALL URINE CULTURE TUBE Routine 06/05/19 5:43 PM EDT EXTRA TUBES Routine 06/04/2024 5:43 PM EDT PROTEIN, URINE, 24H Routine 06/04/2024 4 :36 PM EDT HEPATITIS C ANTIBODY Routine 06/04/2024 6:33 AM EDT HEPATITIS B SURFACE ANTIGEN WITH CONFIRMATION Routine 06/04/2024 6:33 AM EDT KAPPA-LAMBDA QUANTITATIVE FREE LIGHT CHAINS Routine 06/04/2024 6:33 AM EDT IRON AND TIBC Routine 06/04/2024 6:33 AM EDT VITAMIN D 25 HYDROXY Routine 06/04/2024 6:33 AM EDT IMMUNOGLOBULINS IGG, IGA, IGM Routine 06/04/2024 6:33 AM EDT C3 COMPLEMENT Routine 06/04/2024 6:33 AM EDT C4 COMPLEMENT Routine 06/04/2024 6:33 AM EDT URIC ACID Routine 06/04/2024 6:33 AM EDT PARATHYROID HORMONE INTACT Routine 06/04/2024 6:33 AM EDT MAGNESIUM Routine 06/04/2024 6:33 AM EDT FERRITIN Routine 06/04/2024 6:33 AM EDT BASIC METABOLIC PANEL Routine 06/04/2024 6:33 AM EDT NV IMMUNOFIXATION ELECTROPHORESIS SERUM Routine 06/04/2024 6:32 AM EDT IMMUNOFIXATION ELECTROPHORESIS Routine 06/04/2024 6:32 AM EDT LIBBY IFA WITH TITER AND PATTERN Routine 06/04/2024 6:32 AM EDT CBC WITH AUTO DIFFERENTIAL Routine 06/04/2024 6:32 AM EDT ANTI-NEUTROPHILIC CYTOPLASMIC ANTIBODY Routine 06/04/2024 6:32 AM EDT ACTIVATED PARTIAL THROMBOPLASTIN TIME Routine 06/04/2024 6:32 AM EDT SEDIMENTATION RATE Routine 06/04/2024 6: 32 AM EDT PROTHROMBIN TIME WITH INR Routine 06/04/2024 6:32 AM EDT CBC AND DIFFERENTIAL Routine 06/04/2024 6:32 AM EDT IMMUNOFIXATION ELECTROPHORESIS Routine 06/04/2024 6:32 AM EDT EOSINOPHILS URINE Routine 06/03/2024 4:3 2 PM EDT SODIUM, URINE, RANDOM Routine 06/03/2024 4:32 PM EDT CREATININE, URINE, RANDOM Routine 06/03/2024 4:32 PM EDT GLOMERULAR BASEMENT MEMBRANE ANTIBODIES Routine 06/03/2024 4:17 PM EDT URINALYSIS WITH REFLEX MICROSCOPIC AND CULTURE STAT 06/03/2024 12:53 PM EDT SMALL URINE CULTURE TUBE STAT 06/04/19 12:53 PM EDT URINALYSIS WITH REFLEX MICROSCOPIC AND CULTURE STAT 06/03/2024 12:[address] CHEST/ABDOMEN/PELVIS WO CONTRAST STAT 06/03/2024 12:21 PM EDT ECG 12-LEAD STAT 06/03/2024 10:40 AM EDT TROPONIN I HIGH SENSITIVITY STAT 06/03/2024 10:31 AM EDT CBC WITH AUTO DIFFERENTIAL STAT 06/03/2024 10:31 AM EDT CBC AND DIFFERENTIAL STAT 06/03/2024 10:31 AM EDT B-TYPE NATRIURETIC PEPTIDE STAT 06/03/2024 10:31 AM EDT MAGNESIUM STAT 06/03/2024 10:31 AM EDT LACTATE STAT 06/03/2024 10:31 AM EDT VENOUS BLOOD GAS STAT 06/03/2024 10:3 1 AM EDT COMPREHENSIVE METABOLIC PANEL STAT 06/03/2024 10:31 AM EDT US RETROPERITONEAL COMPLETE STAT 06/03/2024 10:22 AM EDT documented in this encounter Results * ECG-Annotated (06/07/2024) us Provider Onbase MD ECG ORDERABLES Final Result * (ABNORMAL) CBC auto differential (06/06/2024 5:47 AM EDT) WBC 11.0(H) 4.8 - 10.8 K/mcL LAB HEMETOLOGY METHOD 06/06/2024 6:55 AM EDT [facility] RBC 3.90(L) 4.50 - 5.50 M/mcL LAB HEMETOLOGY METHOD 06/06/2024 6:55 AM EDT [facility] Hemoglobin 11.1(L) 13.5 - 17.5 g/dL LAB HEMETOLOGY METHOD 06/06/2024 6:55 AM T [facility] Hematocrit 34.7(L) 42.0 - 54.0 % LAB HEMETOLOGY METHOD 06/06/2024 6:55 AM EDT [facility] MCV 88.7 79.0 - 98.0 FL LAB HEMETOLOGY METHOD 06/06/2024 6:55 AM [facility] MCH 28.4 27.0 - 32.0 pcg LAB HEMETOLOGY METHOD 06/06/2024 6:55 AM [facility] MCHC 32.0 32.0 - 37.0 g/dL LAB HEMETOLOGY METHOD 06/06/2024 6:55 AM [facility] RDW 15.3(H) 11.0 - 15.0 % LAB HEMETOLOGY METHOD 06/06/2024 6:55 AM [facility] Platelets 271 130 - 400 K/mcL LAB HEMETOLOGY METHOD 06/06/2024 6:55 AM [facility] MPV 11.0 7.0 - 11.0 FL LAB HEMETOLOGY METHOD 06/06/2024 6:55 AM [facility] NRBC 0.0 <1.0 % LAB HEMETOLOGY METHOD 06/06/2024 6:55 AM [facility] NRBC Absolute 0.00 <0.10 K/mcL LAB HEMETOLOGY METHOD 06/06/2024 6:55 AM [facility] Neutrophils Relative 55.2 % LAB HEMETOLOGY METHOD 06/06/2024 6:55 AM [facility] Lymphocytes Relative 31.2 % LAB HEMETOLOGY METHOD 06/06/2024 6:55 AM [facility] Monocytes Relative 8.6 % LAB HEMETOLOGY METHOD 06/06/2024 6:55 AM [facility] Eosinophils Relative 3.5 % LAB HEMETOLOGY METHOD 06/06/2024 6:55 AM [facility] Basophils Relative 0.9 % LAB HEMETOLOGY METHOD 06/06/2024 6:55 AM [facility] Immature Granulocytes Relative 0.6 % LAB HEMETOLOGY METHOD 06/06/2024 6:55 AM EDT [facility] Neutrophils Absolute 6.07 1.50 - 7.00 K/mcL LAB HEMETOLOGY METHOD 06/06/2024 6:55 AM EDT [facility] Lymphocytes Absolute 3.44 1.00 - 5.00 K/mcL LAB HEMETOLOGY METHOD 06/06/2024 6:55 AM EDT [facility] Monocytes Absolute 0.95 0.20 - 1.00 K/mcL LAB HEMETOLOGY METHOD 06/06/2024 6:55 AM EDT [facility] Eosinophils Absolute 0.38 0.00 - 0.50 K/mcL LAB HEMETOLOGY METHOD 06/06/2024 6:55 AM EDT [facility] Basophils Absolute 0.10 0.00 - 0.20 K/mcL LAB HEMETOLOGY METHOD 06/06/2024 6:55 AM EDT [facility] Immature Granulocytes Absolute 0.07(H) 0.00 - 0.03 K/mcL LAB HEMETOLOGY METHOD 06/06/2024 6:55 AM EDT [facility] Blood Venous blood specimen / Unknown Venipuncture / Unknown 06/06/2024 5:47 AM EDT 06/06/2024 6:15 AM EDT Francisco Abreu MD LAB BLOOD ORDERABLES Fi nal Result [facility] [address] [place] [address], * (ABNORMAL) Basic metabolic panel (06/06/2024 5:47 AM EDT) Sodium 137 133 - 145 mmol/L LAB CHEMISTRY METHOD 06/06/2024 7:37 AM EDT [facility] Potassium 3.8 3.5 - 5.5 mmol/L LAB [facility]MISTRY METHOD [facility] Chloride 96 96 - 110 mmol/L LAB CHEMISTRY METHOD 06/06/2024 7:37 AM [facility] CO2 29 21 - 32 mmol/L LAB CHEMISTRY METHOD 06/06/2024 7:37 AM [facility] Anion Gap 12(H) 3 - 11 LAB CHEMISTRY METHOD 06/06/2024 7:37 AM [facility] Glucose 95 70 - 100 mg/dL LAB CHEMISTRY METHOD 06/06/2024 7:37 AM [facility] BUN 78(H) 5 - 25 mg/dL LAB CHEMISTRY METHOD 06/06/2024 7:37 AM [facility] Creatinine 5.09(H) 0.70 - 1.30 mg/dL LAB CHEMISTRY METHOD 06/06/2024 7:37 AM [facility] eGFR 13(L) >=60 mL/min/1. 73m2 LAB CHEMISTRY METHOD 06/06/2024 7:37 AM [facility] Comment:Calculation based on the??Chronic Kidney Disease Epidemiology Collaboration (CKD-EPI) equation refit??without adjustment for race. BUN/Creatinine Ratio 15.3 LAB CHEMISTRY METHOD 06/06/2024 7:37 AM [facility] Calcium 9.6 8.5 - 10.5 mg/dL LAB CHEMISTRY METHOD 06/06/2024 7:37 AM [facility] Blood Venous blood specimen / Unknown Venipuncture / Unknown 06/06/2024 5:47 AM EDT 06/06/2024 6:15 AM EDT Francisco Abreu MD LAB BLOOD ORDERABLES Fi nal Result [facility] [address] [place] [address], * Magnesium (06/06/2024 5:47 AM EDT) Magnesium 1.9 1.9 - 2.6 mg/dL LAB CHEMISTRY METHOD 06/06/2024 7:30 AM EDT [facility] Blood Venous blood specimen / Unknown Venipuncture / Unknown 06/06/2024 5:47 AM EDT 06/06/2024 6:15 AM EDT us Francisco Abreu MD LAB BLOOD ORDERABLES Fi nal Result Performing Organization Address City/[facility]/ZIP Co de Phone Number [facility] [address] [place] [address], [place] [phone] * (ABNORMAL) Phosphorus (06/06/2024 5:47 AM EDT) Phosphorus 4.9(H) 2.5 - 4.5 mg/dL LAB CHEMISTRY METHOD 06/06/2024 7:30 AM EDT [facility] Blood Venous blood specimen / Unknown Venipuncture / Unknown 06/06/2024 5:47 AM EDT 06/06/2024 6:15 AM EDT us Francisco Abreu MD LAB BLOOD ORDERABLES Fi nal Result Performing Organization Address City/[facility]/ZIP Co de Phone Number [facility] [address] [place] [address], [place] [phone] * (ABNORMAL) Basic metabolic panel (06/05/2024 8:19 AM EDT) Pathologist [facility] Sodium 135 133 - 145 mmol/L LAB CHEMISTRY METHOD 06/05/2024 8:53 AM EDT [facility] Potassium 3.4(L) 3.5 - 5.5 mmol/L LAB CHEMISTRY METHOD 06/05/2024 8:53 AM EDT [facility] Chloride 96 96 - 110 mmol/L LAB CHEMISTRY METHOD 06/05/2024 8:53 AM [facility] CO2 31 21 - 32 mmol/L LAB CHEMISTRY METHOD 06/05/2024 8:53 AM [facility] Anion Gap 8 3 - 11 LAB CHEMISTRY METHOD 06/05/2024 8:53 AM [facility] Glucose 111(H) 70 - 100 mg/dL LAB CHEMISTRY METHOD 06/05/2024 8:53 AM [facility] BUN 82(H) 5 - 25 mg/dL LAB CHEMISTRY METHOD 06/05/2024 8:53 AM [facility] Creatinine 4.91(H) 0.70 - 1.30 mg/dL LAB CHEMISTRY METHOD 06/05/2024 8:53 AM [facility] eGFR 13(L) >=60 mL/min/1. 73m2 LAB CHEMISTRY METHOD 06/05/2024 8:53 AM [facility] Comment:Calculation based on the??Chronic Kidney Disease Epidemiology Collaboration (CKD-EPI) equation refit??without adjustment for race. BUN/Creatinine Ratio 16.7 LAB CHEMISTRY METHOD 06/05/2024 8:53 AM [facility] Calcium 8.7 8.5 - 10.5 mg/dL LAB CHEMISTRY METHOD 06/05/2024 8:53 AM [facility] Blood Venous blood specimen / Unknown Venipuncture / Unknown 06/05/2024 8:19 AM EDT 06/05/2024 8:19 AM EDT us Francisco Abreu MD LAB BLOOD ORDERABLES Fi nal Result [facility] [address] [place] [address], * (ABNORMAL) Microalbumin creatinine urine ratio (06/04/2024 5:48 PM EDT) Creatinine, Urine 66.0 mg/dL LAB CHEMISTRY METHOD 06/04/2024 8:04 PM EDT [facility] Microalb, Ur 492.0(H) 0.0 - 29.0 mg/L LAB CHEMISTRY METHOD 06/04/2024 8:04 PM EDT [facility] Microalb/Crea t Ratio 745(H) <30 mg/g creat LAB CHEMISTRY METHOD 06/04/2024 8:04 PM EDT [facility] Urine Urine specimen obtained by clean catch procedure / Unknown Non-blood Collection / Unknown 06/04/2024 5:48 PM EDT 06/04/2024 6:56 PM EDT Anibal Riley MD LAB URINE ORDERABLES Final Res ult Performing Organization Address [facility]/ZIP Co de Phone Number [facility] [address] [place] [address], [place] [phone] * Small urine culture tube (06/04/2024 5:43 PM EDT) Extra Tube Hold for add-ons. 06/04/2024 8:01 PM EDT [facility] Comment:Auto resulted. Urine Urine specimen obtained by clean catch procedure / Unknown 06/04/2024 5:43 PM EDT 06/04/2024 6:56 PM EDT Francisco Abreu MD LAB URINE ORDERABLES Fi nal Result Performing Organization Address City/[facility]/ZIP Co de Phone Number [facility] [address] [place] [address], [place] [phone] * (ABNORMAL) Protein, urine, 24H (06/04/2024 4:36 PM EDT) Protein, Urine 69 mg/dL LAB CHEMISTRY METHOD 06/04/2024 5:30 PM EDT [facility] Protein, 24H Ur 2,001.0(H ) 0.0 - 150.0 mg/24 hr LAB CHEMISTRY METHOD 06/04/2024 5:30 PM EDT [facility] Urine Volume 2,900 mL LAB CHEMISTRY METHOD 06/04/2024 5:30 PM EDT [facility] Collection Interval, Ur 24 hr LAB CHEMISTRY METHOD 06/04/2024 5:30 PM EDT [facility] Urine Urine specimen from urethra / Unknown Non-blood Collection / Unknown 06/04/2024 4:36 PM EDT 06/04/2024 4:42 PM EDT us Manuel Nicole MD LAB URINE ORDERABLES Final Resu lt [facility] [address] [place] [address], [place] [phone] * Immunoglobulins IgG, IgA, IgM (06/04/2024 6:33 AM EDT) Total IgG 1,070 549 - 1,584 mg/dL LAB CHEMISTRY METHOD 06/04/2024 8:03 AM EDT [facility] IgA 251 61 - 348 mg/dL LAB CHEMISTRY METHOD 06/04/2024 8:03 AM EDT [facility] IgM 83 23 - 259 mg/dL LAB CHEMISTRY METHOD 06/04/2024 8:03 AM EDT [facility] Blood Venous blood specimen / Unknown Venipuncture / Unknown 06/04/2024 6:33 AM EDT 06/04/2024 6:57 AM EDT us Manuel Nicole MD LAB BLOOD ORDERABLES Final Resu lt [facility] [address] [place] [address], [place] [phone] * (ABNORMAL) Vitamin D 25 hydroxy (06/04/2024 6:33 AM EDT) Vit D, 25-Hydroxy 18.9(L) 30.0 - 80.0 ng/mL LAB CHEMISTRY METHOD 06/04/2024 8:52 AM EDT [facility] Blood Venous blood specimen / Unknown Venipuncture / Unknown 06/04/2024 6:33 AM EDT 06/04/2024 6:57 AM EDT us Manuel Nicole MD LAB BLOOD ORDERABLES Final Resu lt Performing Organization Address City/[facility]/ZIP Co de Phone Number [facility] [address] [place] [address], [place] [phone] * (ABNORMAL) Parathyroid hormone intact (06/04/2024 6:33 AM EDT) PTH 561.5(H) 18.5 - 88.0 pcg/mL LAB CHEMISTRY METHOD 06/04/2024 10:23 AM EDT [facility] Comment:Results verified by repeat testing Blood Venous blood specimen / Unknown Venipuncture / Unknown 06/04/2024 6:33 AM EDT 06/04/2024 6:57 AM EDT us Manuel Nicole MD LAB BLOOD ORDERABLES Final Resu lt Performing Organization Address City/[facility]/ZIP Co de Phone Number [facility] [address] [place] [address], [place] [phone] * Iron and TIBC (06/04/2024 6:33 AM EDT) Iron 97 50 - 160 mcg/dL LAB CHEMISTRY METHOD 06/04/2024 8:07 AM EDT [facility] TIBC 260 250 - 450 mcg/dL LAB CHEMISTRY METHOD 06/04/2024 8:07 AM EDT [facility] Iron Saturation 37 20 - 50 % LAB CHEMISTRY METHOD 06/04/2024 8:07 AM EDT [facility] Blood Venous blood specimen / Unknown Venipuncture / Unknown 06/04/2024 6:33 AM EDT 06/04/2024 6:57 AM EDT us Manuel Nicole MD LAB BLOOD ORDERABLES Final Resu lt [facility] [address] [place] [address], [place] [phone] * Ferritin (06/04/2024 6:33 AM EDT) Ferritin 164 26 - 388 ng/mL LAB CHEMISTRY METHOD 06/04/2024 7:50 AM EDT [facility] Blood Venous blood specimen / Unknown Venipuncture / Unknown 06/04/2024 6:33 AM EDT 06/04/2024 6:57 AM EDT us Manuel Nicole MD LAB BLOOD ORDERABLES Final Resu lt Performing Organization Address City/[facility]/ZIP Co de Phone Number [facility] [address] [place] [address], [place] [phone] * Hepatitis B surface antigen with reflex to confirmation (06/04/2024 6:33 AM EDT) Hepatitis B Surface Ag Negative Negative LAB CHEMISTRY METHOD 06/04/2024 9:03 AM EDT [facility] Blood Venous blood specimen / Unknown Venipuncture / Unknown 06/04/2024 6:33 AM EDT 06/04/2024 6:57 AM EDT Narrative [facility] - 06/04/2024 9:03 AM EDT Over the counter supplements containing high doses of biotin may interfere with this assay. ??If interference is suspected, patients shoud be retested after refraining from biotin supplements for 72 hours. us Manuel Nicole MD LAB BLOOD ORDERABLES Final Resu lt Performing Organization Address City/[facility]/ZIP Co de Phone Number [facility]) [facility] [address] [place] [address], [place] [phone] * (ABNORMAL) Tamiami-lambda free light chains, quantitative (06/04/2024 6:33 AM EDT) Tamiami Free Light Chain 9.68(H) 0.33 - 1.94 mg/dL 06/06/2024 1:45 PM EDT [facility] Lambda Free Light Chain 6.69(H) 0.57 - 2.63 mg/dL 06/06/2024 1:45 PM EDT [facility] Tamiami/Lambda FLC Ratio 1.45 0.26 - 1.65 06/06/2024 1:45 PM EDT [facility] Comment: Test performed at [facility], [address] , [place], [place] ??[address] ? [phone] Nohelia Zaidi MD, PhD - Installation & Maintenance Executive Blood Venous blood specimen / Unknown Venipuncture / Unknown 06/04/2024 6:33 AM EDT 06/04/2024 6:57 AM EDT us Manuel Nicole MD LAB BLOOD ORDERABLES Final Resu lt Performing Organization Address [facility]/ZIP Co de Phone Number [facility] [address] [place] [address] * Hepatitis C antibody (06/04/2024 6:33 AM EDT) Hepatitis C Antibody Negative Negative LAB CHEMISTRY METHOD 06/04/2024 9:32 AM EDT [facility] Blood Venous blood specimen / Unknown Venipuncture / Unknown 06/04/2024 6:33 AM EDT 06/04/2024 6:57 AM EDT us Manuel Nicole MD LAB BLOOD ORDERABLES Final Resu lt [facility] [address] [place] [address], [place] [phone] * C4 complement (06/04/2024 6:33 AM EDT) C4 Complement 37 16 - 47 mg/dL LAB CHEMISTRY METHOD 06/04/2024 7:50 AM EDT [facility] Blood Venous blood specimen / Unknown Venipuncture / Unknown 06/04/2024 6:33 AM EDT 06/04/2024 6:57 AM EDT us Manuel Nicole MD LAB BLOOD ORDERABLES Final Resu lt [facility] [address] [place] [address], [place] [phone] * C3 complement (06/04/2024 6:33 AM EDT) [facility] Signature C3 Complement 127 88 - 201 mg/dL LAB CHEMISTRY METHOD 06/04/2024 8:03 AM EDT [facility] Blood Venous blood specimen / Unknown Venipuncture / Unknown 06/04/2024 6:33 AM EDT 06/04/2024 6:57 AM EDT us Manuel Nicole MD LAB BLOOD ORDERABLES Final Resu lt [facility] [address] [place] [address], [place] [phone] * (ABNORMAL) Uric acid (06/04/2024 6:33 AM EDT) Uric Acid 9.6(H) 3.7 - 9.2 mg/dL LAB CHEMISTRY METHOD 06/04/2024 7:50 AM EDT [facility] Blood Venous blood specimen / Unknown Venipuncture / Unknown 06/04/2024 6:33 AM EDT 06/04/2024 6:57 AM EDT Manuel Nicole MD LAB BLOOD ORDERABLES Final Resu lt [facility] [address] [place] [address], [place] [phone] * Magnesium (06/04/2024 6:33 AM EDT) [facility] Magnesium 2.0 1.9 - 2.6 mg/dL LAB CHEMISTRY METHOD 06/04/2024 7:50 AM EDT [facility] Blood Venous blood specimen / Unknown Venipuncture / Unknown 06/04/2024 6:33 AM EDT 06/04/2024 6:57 AM EDT Rashad Hawkins MD LAB BLOOD ORDERABLES Final Re sult Performing Organization Address City/[facility]/ZIP Co de Phone Number [facility] [address] [place] [address], [place] [phone] * (ABNORMAL) Basic metabolic panel (06/04/2024 6:33 AM EDT) [facility] Sodium 136 133 - 145 mmol/L LAB CHEMISTRY METHOD 06/04/2024 8:07 AM EDT [facility] Potassium 3.8 3.5 - 5.5 mmol/L LAB CHEMISTRY METHOD 06/04/2024 8:07 AM EDT [facility] Chloride 104 96 - 110 mmol/L LAB CHEMISTRY METHOD 06/04/2024 8:07 AM EDT [facility] CO2 24 21 - 32 mmol/L LAB CHEMISTRY METHOD 06/04/2024 8:07 AM EDT [facility] Anion Gap 8 3 - 11 LAB CHEMISTRY METHOD 06/04/2024 8:07 AM EDT [facility] Glucose 104(H) 70 - 100 mg/dL LAB CHEMISTRY METHOD 06/04/2024 8:07 AM EDT [facility] BUN 89(H) 5 - 25 mg/dL LAB CHEMISTRY METHOD 06/04/2024 8:07 AM EDT [facility] Creatinine 4.82(H) 0.70 - 1.30 mg/dL LAB CHEMISTRY METHOD 06/04/2024 8:07 AM EDT [facility] eGFR 13(L) >=60 mL/min/1. 73m2 LAB CHEMISTRY METHOD 06/04/2024 8:07 AM EDT [facility] Comment:Calculation based on the??Chronic Kidney Disease Epidemiology Collaboration (CKD-EPI) equation refit??without adjustment for race. BUN/Creatinine Ratio 18.5 LAB CHEMISTRY METHOD 06/04/2024 8:07 AM EDT [facility] Calcium 8.7 8.5 - 10.5 mg/dL LAB CHEMISTRY METHOD 06/04/2024 8:07 AM EDT [facility] Blood Venous blood specimen / Unknown Venipuncture / Unknown 06/04/2024 6:33 AM EDT 06/04/2024 6:57 AM EDT Rashad Hawkins MD LAB BLOOD ORDERABLES Final Re sult [facility] [address] [place] [address], * Pathologist Review Immunofixation (06/04/2024 6:32 AM EDT) Pathologist Interpretation 06/06/2024 5:04 PM EDT [facility] Blood Venous blood specimen / Unknown Venipuncture / Unknown 06/04/2024 6:32 AM EDT 06/04/2024 6:57 AM EDT Manuel Nicole MD LAB BLOOD ORDERABLES Final Resu lt Performing Organization Address City/[facility]/ZIP Co de Phone Number [facility] [address] [place] [address], [place] [phone] * Immunofixation electrophoresis serum (06/04/2024 6:32 AM EDT) [facility] Immunofixation Result, Serum No monoclonal immunoglobulins detected. LAB CHEMISTRY METHOD 06/06/2024 5:04 PM EDT [facility] Blood Venous blood specimen / Unknown Venipuncture / Unknown 06/04/2024 6:32 AM EDT 06/04/2024 6:57 AM EDT Manuel Nicole MD LAB BLOOD ORDERABLES Final Resu lt Performing Organization Address [facility]/ZIP Co de Phone Number [facility] [address] [place] [address], [place] [phone] * (ABNORMAL) CBC auto differential (06/04/2024 6:32 AM EDT) [facility] WBC 8.9 4.8 - 10.8 K/mcL LAB HEMETOLOGY METHOD 06/04/2024 7:08 AM EDT [facility] RBC 3.60(L) 4.50 - 5.50 M/mcL LAB HEMETOLOGY METHOD 06/04/2024 7:08 AM EDT [facility] Hemoglobin 10.1(L) 13.5 - 17.5 g/dL LAB HEMETOLOGY METHOD 06/04/2024 7:08 AM EDT [facility] Hematocrit 30.6(L) 42.0 - 54.0 % LAB HEMETOLOGY METHOD 06/04/2024 7:08 AM EDT [facility] MCV 86.2 79.0 - 98.0 FL LAB HEMETOLOGY METHOD 06/04/2024 7:08 AM EDT [facility] MCH 28.5 27.0 - 32.0 pcg LAB HEMETOLOGY METHOD 06/04/2024 7:08 AM [facility] MCHC 33.0 32.0 - 37.0 g/dL LAB HEMETOLOGY METHOD 06/04/2024 7:08 AM [facility] RDW 15.7(H) 11.0 - 15.0 % LAB HEMETOLOGY METHOD 06/04/2024 7:08 AM [facility] Platelets 257 130 - 400 K/mcL LAB HEMETOLOGY METHOD 06/04/2024 7:08 AM [facility] MPV 11.2(H) 7.0 - 11.0 FL LAB HEMETOLOGY METHOD 06/04/2024 7:08 AM [facility] NRBC 0.0 <1.0 % LAB HEMETOLOGY METHOD 06/04/2024 7:08 AM [facility] NRBC Absolute 0.00 <0.10 K/mcL LAB HEMETOLOGY METHOD 06/04/2024 7:08 AM [facility] Neutrophils Relative 54.8 % LAB HEMETOLOGY METHOD 06/04/2024 7:08 AM [facility] Lymphocytes Relative 32.2 % LAB HEMETOLOGY METHOD 06/04/2024 7:08 AM [facility] Monocytes Relative 8.1 % LAB HEMETOLOGY METHOD 06/04/2024 7:08 AM [facility] Eosinophils Relative 3.4 % LAB HEMETOLOGY METHOD 06/04/2024 7:08 AM [facility] Basophils Relative 0.8 % LAB HEMETOLOGY METHOD 06/04/2024 7:08 AM [facility] Immature Granulocytes Relative 0.7 % LAB HEMETOLOGY METHOD 06/04/2024 7:08 AM [facility] Neutrophils Absolute 4.90 1.50 - 7.00 K/mcL LAB HEMETOLOGY METHOD 06/04/2024 7:08 AM EDT [facility] Lymphocytes Absolute 2.87 1.00 - 5.00 K/mcL LAB HEMETOLOGY METHOD 06/04/2024 7:08 AM EDT [facility] Monocytes Absolute 0.72 0.20 - 1.00 K/mcL LAB HEMETOLOGY METHOD 06/04/2024 7:08 AM EDT [facility] Eosinophils Absolute 0.30 0.00 - 0.50 K/[facility] LAB HEMETOLOGY METHOD 06/04/2024 7:08 AM EDT [facility] Basophils Absolute 0.07 0.00 - 0.20 K/mcL LAB HEMETOLOGY METHOD 06/04/2024 7:08 AM EDT [facility] Immature Granulocytes Absolute 0.06(H) 0.00 - 0.03 K/[facility] LAB HEMETOLOGY METHOD 06/04/2024 7:08 AM EDT [facility] Blood Venous blood specimen / Unknown Venipuncture / Unknown 06/04/2024 6:32 AM EDT 06/04/2024 6:57 AM EDT us Rashad Hawkins MD LAB BLOOD ORDERABLES Final Re sult [facility] [address] [place] [address], * (ABNORMAL) Anti-neutrophilic cytoplasmic antibody (06/04/2024 6:32 AM EDT) Myeloperoxidase Ab Negative Negative LAB CHEMISTRY METHOD 06/08/2024 12:50 PM EDT [facility] Myeloperoxidase Ab, Quant 1 <=20 units LAB CHEMISTRY METHOD 06/08/2024 12:50 PM EDT [facility] Proteinase-3 Ab Positive(A ) Negative LAB CHEMISTRY METHOD 06/08/2024 12:50 PM EDT [facility] Proteinase-3 Ab Quant 47(H) <=20 units LAB CHEMISTRY METHOD 06/08/2024 12:50 PM EDT [facility] Blood Venous blood specimen / Unknown Venipuncture / Unknown 06/04/2024 6:32 AM EDT 06/04/2024 6:57 AM EDT us Manuel Nicole MD LAB BLOOD ORDERABLES Final Resu lt Performing Organization Address [facility]/ZIP Co de Phone Number [facility] [address] [place] [address], [place] [phone] * LIBBY IFA with titer and pattern (06/04/2024 6:32 AM EDT) LIBBY Negative Negative 06/04/2024 12:45 PM EDT [facility] Blood Venous blood specimen / Unknown Venipuncture / Unknown 06/04/2024 6:32 AM EDT 06/04/2024 6:57 AM EDT us Manuel Nicole MD LAB BLOOD ORDERABLES Final Resu lt Performing Organization Address [facility]/ZIP Co de Phone Number [facility] [address] [place] [address], [place] [phone] * Activated partial thromboplastin time (06/04/2024 6:32 AM EDT) aPTT 34.4 24.1 - 39.3 sec LAB COAGULATION METHOD 06/04/2024 7:19 AM EDT [facility] Blood Venous blood specimen / Unknown Venipuncture / Unknown 06/04/2024 6:32 AM EDT 06/04/2024 6:57 AM EDT us Manuel Nicole MD LAB BLOOD ORDERABLES Final Resu lt Performing Organization Address City/[facility]/ZIP Co de Phone Number [facility] [address] [place] [address], [place] [phone] * Prothrombin time with INR (06/04/2024 6:32 AM EDT) Protime 12.5 10.6 - 13.9 sec LAB COAGULATION METHOD 06/04/2024 7:19 AM EDT [facility] INR 1.0 LAB COAGULATION METHOD 06/04/2024 7:19 AM EDT [facility] Blood Venous blood specimen / Unknown Venipuncture / Unknown 06/04/2024 6:32 AM EDT 06/04/2024 6:57 AM EDT us Manuel Nicole MD LAB BLOOD ORDERABLES Final Resu lt Performing Organization Address [facility] Co de Phone Number [facility] [address] [place] [address], [place] [phone] * (ABNORMAL) Sedimentation rate (06/04/2024 6:32 AM EDT) Pathologist [facility] Sed Rate 116(H) 0 - 20 mm/hr LAB HEMETOLOGY METHOD 06/04/2024 7:19 AM EDT [facility] Blood Venous blood specimen / Unknown Venipuncture / Unknown 06/04/2024 6:32 AM EDT 06/04/2024 6:57 AM EDT us Manuel Nicole MD LAB BLOOD ORDERABLES Final Resu lt Performing Organization Address [facility]/ZIP Co de Phone Number [facility] [address] [place] [address], [place] [phone] * Creatinine, urine, random (06/03/2024 4:32 PM EDT) Creatinine, Urine 52.0 mg/dL LAB CHEMISTRY METHOD 06/03/2024 9:55 PM EDT [facility] Urine Urine specimen obtained by clean catch procedure / Unknown Non-blood Collection / Unknown 06/03/2024 4:32 PM EDT 06/03/2024 9:28 PM EDT us Manuel Nicole MD LAB URINE ORDERABLES Final Resu lt Performing Organization Address [facility]/ZIP Co de Phone Number [facility] [address] [place] [address], [place] [phone] * Sodium, urine, random (06/03/2024 4:32 PM EDT) Sodium, Ur 78 mmol/L LAB CHEMISTRY METHOD 06/03/2024 9:55 PM EDT [facility] Urine Urine specimen obtained by clean catch procedure / Unknown Non-blood Collection / Unknown 06/03/2024 4:32 PM EDT 06/03/2024 9:28 PM EDT us Manuel Nicole MD LAB URINE ORDERABLES Final Resu lt Performing Organization Address [facility] Co de Phone Number [facility] [address] [place] [address], [place] [phone] * Eosinophils, urine (06/03/2024 4:32 PM EDT) Eosinophil % Urine LAB URINALYSIS - AUTOMATED METHOD 06/03/2024 10:05 PM EDT [facility] Comment:Unable to perform ur ine eos smear when WBC count < 10/HPF. WBC, Urine 1 0 - 4 /HPF LAB URINALYSIS - AUTOMATED METHOD 06/03/2024 10:05 PM EDT [facility] Urine Urine specimen obtained by clean catch procedure / Unknown Non-blood Collection / Unknown 06/03/2024 4:32 PM EDT 06/03/2024 9:28 PM EDT us Manuel iNcole MD LAB URINE ORDERABLES Final Resu lt Performing Organization Address City/[facility]/ZIP Co de Phone Number [facility] [address] [place] [address], [place] [phone] * Glomerular basement membrane antibodies (06/03/2024 4:17 PM EDT) Glomerular Basement Membrane <1.5 <7.0 U/mL 06/07/2024 6:38 AM EDT [facility] Comment: INTERPRETATION: Negative Test performed at [facility], [address], [place], [place] ??[address] ? [phone] Nohelia Zaidi MD, PhD - Installation & Maintenance Executive Blood Venous blood specimen / Unknown Venipuncture / Unknown 06/03/2024 4:17 PM EDT 06/03/2024 4:37 PM EDT us Manuel Nicole MD LAB BLOOD ORDERABLES Final Resu lt Performing Organization Address [facility]/ZIP Co de Phone Number [facility] [address] [place] [address] * Small urine culture tube (06/03/2024 12:53 PM EDT) Extra Tube Hold for add-ons. 06/03/2024 3:01 PM EDT [facility] Comment:Auto resulted. Urine Urine specimen obtained by clean catch procedure / Unknown Non-blood Collection / Unknown 06/03/2024 12:53 PM EDT 06/03/2024 1:01 PM EDT Regina Oconnell DO LAB URINE ORDERABLES Pat l Result [facility] [address] [place] [address], [place] [phone] * (ABNORMAL) Urinalysis with reflex microscopic and culture (06/03/2024 12:53 PM EDT) Specific Emerson Urine 1.011 1.003 - 1.030 LAB URINALYSIS - AUTOMATED METHOD 06/03/2024 1:24 PM [facility] pH, Urine 6.0 5.0 - 8.0 pH LAB URINALYSIS - AUTOMATED METHOD 06/03/2024 1:24 PM [facility] Leukocytes, Urine Negative Negative LAB URINALYSIS - AUTOMATED METHOD 06/03/2024 1:24 PM [facility] Nitrite, Urine Negative Negative LAB URINALYSIS - AUTOMATED METHOD 06/03/2024 1:24 PM [facility] Protein, Urine 100(A) <=Trace mg/dL LAB URINALYSIS - AUTOMATED METHOD 06/03/2024 1:24 PM [facility] Glucose, Urine Negative Negative mg/dL LAB URINALYSIS - AUTOMATED METHOD 06/03/2024 1:24 PM [facility] Ketones, Urine Negative Negative mg/dL LAB URINALYSIS - AUTOMATED METHOD 06/03/2024 1:24 PM [facility] Urobilinogen, Urine 0.2 0.2 - 1.0 mg/dL LAB URINALYSIS - AUTOMATED METHOD 06/03/2024 1:24 PM [facility] Bilirubin, Urine Negative Negative LAB URINALYSIS - AUTOMATED METHOD 06/03/2024 1:24 PM [facility] Blood, Urine Trace(A) Negative LAB URINALYSIS - AUTOMATED METHOD 06/03/2024 1:24 PM [facility] RBC, Urine 5.2(H) 0 - 4 /HPF LAB URINALYSIS - AUTOMATED METHOD 06/03/2024 1:24 PM [facility] WBC, Urine 1.0 0 - 4 /HPF LAB URINALYSIS - AUTOMATED METHOD 06/03/2024 1:24 PM [facility] Squamous Epithelial, Urine 9 0 - 60 /LPF LAB URINALYSIS - AUTOMATED METHOD 06/03/2024 1:24 PM EDT [facility] Bacteria, Urine Negative Negative /HPF LAB URINALYSIS - AUTOMATED METHOD 06/03/2024 1:24 PM EDT [facility] Hyaline Casts, Urine 0.4 0 - 3 /LPF LAB URINALYSIS - AUTOMATED METHOD 06/03/2024 1:24 PM EDT [facility] Urine Urine specimen obtained by clean catch procedure / Unknown Non-blood Collection / Unknown 06/03/2024 12:53 PM EDT 06/03/2024 1:01 PM EDT us Regina Oconnell DO LAB URINE ORDERABLES Pat l Result [facility] [address] [place] [address], [place] [phone] * CT Chest/Abdomen/Pelvis wo Contrast (06/03/2024 12:21 PM EDT) Anatomical Region Laterality Modality Body Computed Tomogra phy 06/03/2024 12:3 6 PM EDT Impressions 06/03/2024 12:[address] Negative [address]contrast CT. ??No hydronephrosis. -------- FINAL REPORT -------- Dictated By: Mikey Gonzales Dictated Date: 06/03/2024 12:36 ET Assigned Physician: Mikey Gonzales Reviewed and Electronically Signed By: Mikey Gonzales Signed Date: 06/03/2024 12:44 ET Workstation ID: [id number] Transcribed By: Self Edit Transcribed Date: 06/03/2024 12:36 ET Narrative 06/03/2024 12:[address] CHEST, ABDOMEN AND PELVIS WITHOUT CONTRAST INDICATION: Acute kidney injury, Evaluate for Oncological cause TECHNIQUE: Chest, abdomen and pelvis CT without contrast. Multiplanar reformats were created and interpreted. The examination was performed utilizing dose reduction techniques. Total DLP: 1971 mGy/cm COMPARISON: ??No priors available. FINDINGS: ?? CT CHEST: LUNGS/PLEURA: Central airways are patent. Lungs are clear. No pleural effusion or pneumothorax. MEDIASTINUM: Thyroid gland is unremarkable. No mediastinal or hilar lymphadenopathy. Cardiac chambers are normal in size. No pericardial effusion. Esophagus is normal with small hiatal hernia. CHEST WALL: No axillary lymphadenopathy or mass. CT ABDOMEN AND PELVIS: HEPATOBILIARY: No focal liver lesions. No cholelithiasis or biliary duct dilatation. SPLEEN: no focal lesion PANCREAS: No focal mass or ductal dilatation. ADRENALS: No nodules. KIDNEYS/URETERS: No hydronephrosis, stones, or solid mass. PELVIC ORGANS/BLADDER: Mildly distended bladder. ??Prostate calcifications. PERITONEUM / RETROPERITONEUM: No ascites or free air. No retroperitoneal lymphadenopathy. VESSELS: Scattered atherosclerotic calcifications throughout the aorta and its major branches. No aneurysm. GI TRACT: Mild thickening of the rectum presumably related to extension. ??No acute infectious or inflammatory process. ??Normal appendix. BONES AND SOFT TISSUES: Scattered degenerative changes seen throughout the bones. ??Severe degenerative changes of the right greater than left hip possible avascular necrosis. ??No acute fracture. Soft tissues are unremarkable. ??Fat-containing right inguinal hernia Procedure Note Mikey Gonzales MD - 06/03/2024 CT CHEST, ABDOMEN AND PELVIS WITHOUT CONTRAST INDICATION: Acute kidney injury, Evaluate for Oncological cause TECHNIQUE: Chest, abdomen and pelvis CT without contrast. Multiplanarreformats were created and interpreted. The examination was performedutilizing dose reduction techniques. Total DLP: 1971 mGy/cm COMPARISON: No priors available. FINDINGS: CT CHEST: LUNGS/PLEURA: Central airways are patent. Lungs are clear. No pleuraleffusion or pneumothorax. MEDIASTINUM: Thyroid gland is unremarkable. No mediastinal or hilarlymphadenopathy. Cardiac chambers are normal in size. No pericardialeffusion. Esophagus is normal with small hiatal hernia. CHEST WALL: No axillary lymphadenopathy or mass. CT ABDOMEN AND PELVIS: HEPATOBILIARY: No focal liver lesions. No cholelithiasis or biliary ductdilatation. SPLEEN: no focal lesion PANCREAS: No focal mass or ductal dilatation. ADRENALS: No nodules. KIDNEYS/URETERS: No hydronephrosis, stones, or solid mass. PELVIC ORGANS/BLADDER: Mildly distended bladder. Prostatecalcifications. PERITONEUM / RETROPERITONEUM: No ascites or free air. No retroperitoneallymphadenopathy. VESSELS: Scattered atherosclerotic calcifications throughout the aorta andits major branches. No aneurysm. GI TRACT: Mild thickening of the rectum presumably related to extension.No acute infectious or inflammatory process. Normal appendix. BONES AND SOFT TISSUES: Scattered degenerative changes seen throughout thebones. Severe degenerative changes of the right greater than left hippossible avascular necrosis. No acute fracture. Soft tissues areunremarkable. Fat-containing right inguinal hernia IMPRESSION: Negative noncontrast CT. No hydronephrosis. -------- FINAL REPORT -------- Dictated By: Mikey Gonzales Dictated Date: 06/03/2024 12:36 ET Assigned Physician: Mikey Gonzales Reviewed and Electronically Signed By: Mikey Gonzales Signed Date: 06/03/2024 12:44 ET Workstation ID: [id number] Transcribed By: Self Edit Transcribed Date: 06/03/2024 12:36 ET us Regina Oconnell DO IMG CT PROCEDURES Final R esult * ECG 12 lead (06/03/2024 10:40 AM EDT) Ventricular Rate ECG 102 BPM GEMUSE Atrial Rate 102 BPM GEMUSE P-R Interval 210 ms GEMUSE QRS Duration 88 ms GEMUSE Q-T Interval 360 ms GEMUSE QTc 469 ms GEMUSE P Wave Archbald 61 degrees GEMUSE R Archbald 11 degrees GEMUSE T Archbald 30 degrees GEMUSE ECG Interpretation Sinus tachycardia with 1st degree A-V block Nonspecific T wave abnormality Abnormal ECG No previous ECGs available Confirmed by Fredy BARTLETT YUFENG ([id number]) on 06/04/2024 8:16:48 AM GEMUSE 06/03/2024 10:4 0 AM EDT 06/04/2024 8:16 AM EDT [employer] Regina Oconnell DO ECG ORDERABLES Final Res ult GEMUSE * (ABNORMAL) Lactate (06/03/2024 10:31 AM EDT) Pathologist [facility] Lactate 2.7(H) 0.4 - 2.0 mmol/L LAB CHEMISTRY METHOD 06/03/2024 11:32 AM EDT [facility] Blood Venous blood specimen / Unknown Venipuncture / Unknown 06/03/2024 10:31 AM EDT 06/03/2024 10:50 AM EDT Regina Oconnell DO LAB BLOOD ORDERABLES Pat l Result [facility] [address] [place] [address], [place] [phone] * B-type natriuretic peptide (06/03/2024 10:31 AM EDT) [facility] BNP 20 <=100 pcg/mL LAB CHEMISTRY METHOD 06/03/2024 11:30 AM EDT [facility] Blood Venous blood specimen / Unknown Venipuncture / Unknown 06/03/2024 10:31 AM EDT 06/03/2024 10:51 AM EDT Regian Gamboa Oconnell DO LAB BLOOD ORDERABLES Pat l Result [facility] [address] [place] [address], [place] [phone] * Troponin I high sensitivity (06/03/2024 10:31 AM EDT) [facility] High Sensitivity Troponin I 12 <=79 ng/L LAB CHEMISTRY METHOD 06/03/2024 11:23 AM EDT [facility] Blood Venous blood specimen / Unknown Venipuncture / Unknown 06/03/2024 10:31 AM EDT 06/03/2024 10:51 AM EDT Narrative [facility] - 06/03/2024 11:23 AM EDT High levels of biotin in samples may falsely decrease hsTroponin values. ??Use caution when interpreting hsTroponin results in patients taking biotin who exhibit renal impairment (eGFR <60) or in patients taking more than 20 mg/day of biotin. [facility] Mckinley Oconnell LAB BLOOD ORDERABLES Pat l Result Performing Organization Address [facility]/ZIP Co de Phone Number [facility] [address] [place] [address], * (ABNORMAL) Venous blood gas (06/03/2024 10:31 AM EDT) pH, Natalio 7.28(L) 7.32 - 7.42 pH 06/03/2024 10:53 AM EDT [facility] pCO2, Natalio 36(L) 41 - 51 mmHg 06/03/2024 10:53 AM EDT [facility] pO2, Natalio 43(H) 25 - 40 mmHg 06/03/2024 10:53 AM EDT [facility] HCO3, Venous 17.2(L) 22.0 - 26.0 mmol/L 06/03/2024 10:53 AM EDT [facility] O2 Sat, Natalio 73.7 % 06/03/2024 10:53 AM EDT [facility] Base Excess, Natalio -9.1(L) -2.0 - 2.0 mmol/L 06/03/2024 10:53 AM EDT [facility] Blood Venous blood specimen / Unknown Venipuncture / Unknown 06/03/2024 10:31 AM EDT 06/03/2024 10:50 AM EDT Regina Oconnell LAB BLOOD ORDERABLES Pat l Result Performing Organization Address [facility]/State/ZIP Co de Phone Number [facility] [address] [place] [address], * Magnesium (06/03/2024 10:31 AM EDT) [facility] Magnesium 2.2 1.9 - 2.6 mg/dL LAB CHEMISTRY METHOD 06/03/2024 11:26 AM T [facility] Blood Venous blood specimen / Unknown Venipuncture / Unknown 06/03/2024 10:31 AM EDT 06/03/2024 10:51 AM EDT Regina Gamboa Oconnell DO LAB BLOOD ORDERABLES Pat l Result [facility] [address] [place] [address], * (ABNORMAL) CBC auto differential (06/03/2024 10:31 AM EDT) [facility] WBC 11.4(H) 4.8 - 10.8 K/mcL LAB HEMETOLOGY METHOD 06/03/2024 11:00 AM [facility] RBC 4.10(L) 4.50 - 5.50 M/mcL LAB HEMETOLOGY METHOD 06/03/2024 11:00 AM [facility] Hemoglobin 11.5(L) 13.5 - 17.5 g/dL LAB HEMETOLOGY METHOD 06/03/2024 11:00 AM [facility] Hematocrit 36.0(L) 42.0 - 54.0 % LAB HEMETOLOGY METHOD 06/03/2024 11:00 AM [facility] MCV 88.2 79.0 - 98.0 FL LAB HEMETOLOGY METHOD 06/03/2024 11:00 AM [facility] MCH 28.2 27.0 - 32.0 pcg LAB HEMETOLOGY METHOD 06/03/2024 11:00 AM [facility] MCHC 31.9(L) 32.0 - 37.0 g/dL LAB HEMETOLOGY METHOD 06/03/2024 11:00 AM [facility] RDW 15.8(H) 11.0 - 15.0 % LAB HEMETOLOGY METHOD 06/03/2024 11:00 AM [facility] Platelets 327 130 - 400 K/mcL LAB HEMETOLOGY METHOD 06/03/2024 11:00 AM [facility] MPV 11.1(H) 7.0 - 11.0 FL LAB HEMETOLOGY METHOD 06/03/2024 11:00 AM [facility] NRBC 0.0 <1.0 % LAB HEMETOLOGY METHOD 06/03/2024 11:00 AM [facility] NRBC Absolute 0.00 <0.10 K/mcL LAB HEMETOLOGY METHOD 06/03/2024 11:00 AM [facility] Neutrophils Relative 67.2 % LAB HEMETOLOGY METHOD 06/03/2024 11:00 AM [facility] Lymphocytes Relative 23.7 % LAB HEMETOLOGY METHOD 06/03/2024 11:00 AM [facility] Monocytes Relative 6.2 % LAB HEMETOLOGY METHOD 06/03/2024 11:00 AM [facility] Eosinophils Relative 1.3 % LAB HEMETOLOGY METHOD 06/03/2024 11:00 AM [facility] Basophils Relative 0.9 % LAB HEMETOLOGY METHOD 06/03/2024 11:00 AM [facility] Immature Granulocytes Relative 0.7 % LAB HEMETOLOGY METHOD 06/03/2024 11:00 AM [facility] Neutrophils Absolute 7.68(H) 1.50 - 7.00 K/mcL LAB HEMETOLOGY METHOD 06/03/2024 11:00 AM [facility] Lymphocytes Absolute 2.71 1.00 - 5.00 K/mcL LAB HEMETOLOGY METHOD 06/03/2024 11:00 AM EDT [facility] Monocytes Absolute 0.71 0.20 - 1.00 K/[facility] LAB HEMETOLOGY METHOD 06/03/2024 11:00 AM EDT [facility] Eosinophils Absolute 0.15 0.00 - 0.50 K/[facility] LAB HEMETOLOGY METHOD 06/03/2024 11:00 AM EDT [facility] Basophils Absolute 0.10 0.00 - 0.20 K/[facility] LAB HEMETOLOGY METHOD 06/03/2024 11:00 AM EDT [facility] Immature Granulocytes Absolute 0.08(H) 0.00 - 0.03 K/[facility] LAB HEMETOLOGY METHOD 06/03/2024 11:00 AM [facility] Blood Venous blood specimen / Unknown Venipuncture / Unknown 06/03/2024 10:31 AM EDT 06/03/2024 10:51 AM EDT us Regina Oconnell DO LAB BLOOD ORDERABLES Pat l Result [facility] [address] [place] [address], * (ABNORMAL) Comprehensive metabolic panel (06/03/2024 10:31 AM EDT) Sodium 138 133 - 145 mmol/L LAB CHEMISTRY METHOD 06/03/2024 11:26 AM EDT [facility] Potassium 4.4 3.5 - 5.5 mmol/L LAB CHEMISTRY METHOD 06/03/2024 11:26 AM EDT [facility] Chloride 107 96 - 110 mmol/L LAB CHEMISTRY METHOD 06/03/2024 11:26 AM [facility] CO2 16(L) 21 - 32 mmol/L LAB CHEMISTRY METHOD 06/03/2024 11:26 AM [facility] Anion Gap 15(H) 3 - 11 LAB CHEMISTRY METHOD 06/03/2024 11:26 AM [facility] Glucose 157(H) 70 - 100 mg/dL LAB CHEMISTRY METHOD 06/03/2024 11:26 AM [facility] BUN 90(H) 5 - 25 mg/dL LAB CHEMISTRY METHOD 06/03/2024 11:26 AM [facility] Creatinine 5.21(H) 0.70 - 1.30 mg/dL LAB CHEMISTRY METHOD 06/03/2024 11:26 AM [facility] eGFR 12(L) >=60 mL/min/1. 73m2 LAB CHEMISTRY METHOD 06/03/2024 11:26 AM [facility] Comment:Calculation based on the??Chronic Kidney Disease Epidemiology Collaboration (CKD-EPI) equation refit??without adjustment for race. BUN/Creatinine Ratio 17.3 LAB CHEMISTRY METHOD 06/03/2024 11:26 AM [facility] Calcium 10.3 8.5 - 10.5 mg/dL LAB CHEMISTRY METHOD 06/03/2024 11:26 AM [facility] AST (SGOT) 20 10 - 42 unit/L LAB CHEMISTRY METHOD 06/03/2024 11:26 AM [facility] ALT (SGPT) 28 10 - 60 unit/L LAB CHEMISTRY METHOD 06/03/2024 11:26 AM [facility] Alkaline Phosphatase 115 42 - 121 unit/L LAB CHEMISTRY METHOD 06/03/2024 11:26 AM [facility] Total Protein 8.3(H) 6.0 - 8.0 g/dL LAB CHEMISTRY METHOD 06/03/2024 11:26 AM [facility] Albumin 4.2 3.2 - 5.0 g/dL LAB CHEMISTRY METHOD 06/03/2024 11:26 AM [facility] Total Bilirubin 0.4 0.0 - 1.4 mg/dL LAB CHEMISTRY METHOD 06/03/2024 11:26 AM EDT [facility] Blood Venous blood specimen / Unknown Venipuncture / Unknown 06/03/2024 10:31 AM EDT 06/03/2024 10:51 AM EDT us Regina Oconnell DO LAB BLOOD ORDERABLES Pat l Result [facility] [address] [place] [address], [place] [phone] * US Retroperitoneal Complete (06/03/2024 10:22 AM EDT) Anatomical Region Laterality Modality Body Ultrasound 06/03/2024 10:3 2 AM EDT Impressions 06/03/2024 10:35 AM EDT 1. ??Echogenic renal parenchyma suggestive of medical renal disease. ??No hydronephrosis. 2. ??Small bilateral cortical cysts. 3. ??Echogenic areas in both renal cortices suggesting dystrophic calcifications and layering milk of calcium within cysts. 4. ??Enlarged prostate gland. -------- FINAL REPORT -------- Dictated By: Ronaldo Briseno Dictated Date: 06/03/2024 10:32 ET Assigned Physician: Ronaldo Briseno Reviewed and Electronically Signed By: Ronaldo Briseno Signed Date: 06/03/2024 10:35 ET Workstation ID: [id number] Transcribed By: Self Edit Transcribed Date: 06/03/2024 10:32 ET Narrative 06/03/2024 10:35 AM EDT PROCEDURE: Renal ultrasound. HISTORY: renal failure. TECHNIQUE: Grayscale, color Doppler, and spectral Doppler ultrasound of the kidneys. COMPARISON: None. FINDINGS: The right kidney measures 8 cm craniocaudal and the left measures 8.3 cm craniocaudal. Bilateral echogenic parenchyma suggestive of medical renal disease. ??There are several small hypoechoic cortical lesions suggestive of cysts. No hydronephrosis. Echogenic shadowing areas in both renal cortices suggesting dystrophic calcifications. ??Some are associated with the above-noted cysts and may represent layering milk of calcium. The urinary bladder is underdistended, limiting assessment, with possible mural thickening and trabeculation. ??Both ureteral jets visualized. Enlarged prostate gland with a calculated volume of 66 mL. Procedure Note Ronaldo Briseno MD - 06/03/2024 PROCEDURE: Renal ultrasound. HISTORY: renal failure. TECHNIQUE: Grayscale, color Doppler, and spectral Doppler ultrasound ofthe kidneys. COMPARISON: None. FINDINGS: The right kidney measures 8 cm craniocaudal and the left measures 8.3 cmcraniocaudal. Bilateral echogenic parenchyma suggestive of medical renal disease. Thereare several small hypoechoic cortical lesions suggestive of cysts. No hydronephrosis. Echogenic shadowing areas in both renal cortices suggesting dystrophiccalcifications. Some are associated with the above-noted cysts and mayrepresent layering milk of calcium. The urinary bladder is underdistended, limiting assessment, with possiblemural thickening and trabeculation. Both ureteral jets visualized. Enlarged prostate gland with a calculated volume of 66 mL. IMPRESSION: 1. Echogenic renal parenchyma suggestive of medical renal disease. Nohydronephrosis. 2. Small bilateral cortical cysts. 3. Echogenic areas in both renal cortices suggesting dystrophiccalcifications and layering milk of calcium within cysts. 4. Enlarged prostate gland. -------- FINAL REPORT -------- Dictated By: Ronaldo Briseno Dictated Date: 06/03/2024 10:32 ET Assigned Physician: Ronaldo Briseno Reviewed and Electronically Signed By: Ronaldo Briseno Signed Date: 06/03/2024 10:35 ET Workstation ID: [id number] Transcribed By: Self Edit Transcribed Date: 06/03/2024 10:32 ET us Regina Oconnell DO IMG US PROCEDURES Final R esult documented in this encounter Visit Diagnoses Diagnosis FARHEEN (acute kidney injury) (CMS/HCC V24)- Primary Renal failure, unspecified chronicity Uremia Unspecified renal failure FARHEEN (acute kidney injury) (CMS/HCC V24) Renal failure, unspecified chronicity documented in this encounter Admitting Diagnoses Diagnosis FARHEEN (acute kidney injury) (CMS/[facility] V24) Renal failure, unspecified chronicity documented in this encounter Administered Medications Inactive Administered Medications - up to 3 most recent administrations Medication Order MAR Action Action Date Dose Rate Site acetaminophen (TYLENOL) tablet 650 mg 650 mg, oral, Every 6 hours PRN, mild pain, fever - temperature GREATER than 38 C (100.4 F), Starting on Thu06/03/24 at 1316 bisoprolol (ZEBETA) tablet 5 mg 5 mg, oral, Daily, First dose on 06/04/24 at 1200 Given 06/06/2024 8:42 AM EDT 5 mg Given 06/05/2024 9:17 AM EDT 5 mg Given 06/04/2024 1:12 PM EDT 5 mg calcitrioL (ROCALTROL) capsule 0.5 mcg 0.5 mcg, oral, Daily, First dose on 06/04/24 at 1445 Given 06/06/2024 8:42 AM EDT 0.5 mcg Given 06/05/2024 9:17 AM EDT 0.5 mcg Given 06/04/2024 3:33 PM EDT 0.5 mcg heparin (UFH) injection 5,000 Units 5,000 Units, subcutaneous, Every 8 hours scheduled, First dose on Thu06/03/24 at 1400, Enter Indication for use of heparin (UFH) instead of enoxaparin (LOVENOX): (free text): acute renal failure, Indication: VTE Prophylaxis, Indications: Prophylaxis of Venous ThromboembolismIndications:Pr ophylaxis of Venous Thromboembolism Given 06/06/2024 6:57 AM EDT 5,000 Units Left Lower Abdomen Given 06/05/2024 11:25 PM EDT 5,000 Units Left Lower Abdomen Given 06/05/2024 3:07 PM EDT 5,000 Units L eft Outer Thigh LORazepam (ATIVAN) tablet 1 mg 1 mg, oral, Every 12 hours PRN, anxiety, Starting on Thu06/03/24 at 1400 ondansetron (PF) (ZOFRAN) injection 4 mg 4 mg, intravenous, Every 6 hours PRN, vomiting, nausea, Starting on Thu06/03/24 at 1316, -ONLY give IV if patient is unable to take orally. -If inadequate response within 30 minutes, proceed to next-line agent or contact provider if no further options ordered. potassium chloride (KLOR-CON M20) CR tablet 40 mEq 40 mEq, oral, Once, On Thu06/05/24 at 1100, For 1 dose, Tablet may be swallowed whole (do not crush/chew/suck on) OR broken in half and each half swallowed separately OR dissolved (whole tablet) in ~4 ounces of water (allow ~2 minutes to dissolve, stir well and administer immediately). Given 06/05/2024 11:48 AM EDT 40 mEq potassium chloride (KLOR-CON) packet 20 mEq 20 mEq, oral, Once, On Thu06/05/24 at 1345, For 1 dose, Dissolve each packet in 4 ounces of water = 5 mEq per 1 oz fluid. Given 06/05/2024 3:07 PM EDT 20 mEq sodium bicarbonate in dextrose 5 % 150 mEq/1150 mL infusion 150 mEq, intravenous, at 75 mL/hr, Continuous, Starting on Thu06/03/24 at 1346, For 2 days New Bag 06/05/2024 10:57 AM EDT 150 mEq 75 mL/hr New Bag 06/04/2024 5:35 AM EDT 150 mEq 75 mL/hr New Bag 06/03/2024 2:23 PM EDT 150 mEq 75 mL/hr sodium chloride 0.9 % bolus 500 mL 500 mL, intravenous, at 1,000 mL/hr, Administer over 30 Minutes, Once, On Thu06/03/24 at 1036, For 1 dose New Bag 06/03/2024 10:54 AM EDT 500 mL 1000 mL/hr sodium chloride 0.9 % flush 10 mL 10 mL, intravenous, 2 times daily, First dose on Thu06/03/24 at 1320 Given 06/06/2024 8:43 AM EDT 10 mL Given 06/05/2024 9:49 PM EDT 10 mL Given 06/04/2024 9:43 AM EDT 10 mL sodium chloride 0.9 % flush 10 mL 10 mL, intravenous, As needed, line care, Starting on Thu06/03/24 at 1316 documented in this encounter Historical Medications * This list may reflect changes made after this encounter. LORazepam (ATIVAN) 0.5 mg tablet Take 1 tablet (0.5 mg total) by mouth 1 (one) time each day if needed for anxiety. Max Daily Amount: 0.5 mg aspirin 81 mg EC tablet Take 1 tablet (81 mg total) by mouth 1 (one) time each day. bisoprolol (ZEBETA) 5 mg tablet Take 1 tablet (5 mg total) by mouth 1 (one) time each day. 05/23/2024 added in this encounter Active and Recently Administered Medications Times are shown in EDT. Scheduled Medication Order 06/04/2024 06/05/2024 06/06/2024 bisoprolol (ZEBETA) tablet 5 mg 5 mg, oral, Daily, First dose on 06/04/24 at 1200 1312 (Given - Provider: SOWMYA Juárez) 0917 (Given - Provider: Dorothy Mccormick RN) 0842 (Given - Provider: Sasha Zapien RN) calcitrioL (ROCALTROL) capsule 0.5 mcg 0.5 mcg, oral, Daily, First dose on 06/04/24 at 1445 1533 (Given - Provider: Adelia Pearl RN) 0917 (Given - Provider: Dorothy Mccormick RN) 0842 (Given - Provider: Sasha Zapien RN) heparin (UFH) injection 5,000 Units 5,000 Units, subcutaneous, Every 8 hours scheduled, First dose on Thu06/03/24 at 1400, Enter Indication for use of heparin (UFH) instead of enoxaparin (LOVENOX): (free text): acute renal failure, Indication: VTE Prophylaxis, Indications: Prophylaxis of Venous Thromboembolism 0537 (Given - Provider: Laine Lopez RN)1312 (Given - Provider: SOWMYA Juárez)2152 (Given - Provider: Tess Mack RN) 0615 (Given - Provider: Tess Mack RN)1507 (Given - Provider: Sasha Zapien RN)2325 (Given - Provider: Shasta Li RN) 0657 (Given - Provider: Shasta Li RN)1400 (Canceled Entry - Provider: Automatic Discharge Provider - Comment: Automatically canceled at discontinue of medication order) potassium chloride (KLOR-CON M20) CR tablet 40 mEq (COMPLETED) 40 mEq, oral, Once, On 06/05/24 at 1100, For 1 dose, Tablet may be swallowed whole (do not crush/chew/suck on) OR broken in half and each half swallowed separately OR dissolved (whole tablet) in ~4 ounces of water (allow ~2 minutes to dissolve, stir well and administer immediately). 1148 (Given - Provider: Sasha Zapien, GINO) potassium chloride (KLOR-CON) packet 20 mEq (COMPLETED) 20 mEq, oral, Once, On Thu06/05/24 at 1345, For 1 dose, Dissolve each packet in 4 ounces of water = 5 mEq per 1 oz fluid. 1507 (Given - Provider: Sasha Zapien, GINO) sodium chloride 0.9 % flush 10 mL(Linked Group 1) 10 mL, intravenous, 2 times daily, First dose on Thu06/03/24 at 1320 0943 (Given - Provider: SOWMYA Juárez)2156 (Not Given - Provider: Tess Mack RN - Reason: Other - Comment: ivf infusing) 0928 (Not Given - Provider: Dorothy Mccormick RN - Reason: Other - Comment: iv INFUSING)2149 (Given - Provider: Shasta Li, GINO) 0843 (Given - Provider: Sasha Zapien RN) Continuous Medication Order 06/04/2024 06/05/2024 06/06/2024 sodium bicarbonate in dextrose 5 % 150 mEq/1150 mL infusion () 150 mEq, intravenous, at 75 mL/hr, Continuous, Starting on Thu06/03/24 at 1346, For 2 days 0535 (New Bag - Provider: Laine Lopez RN) 1057 (New Bag - Provider: Sasha Zapien, GINO)1507 (Stopped - Provider: Sasha Zapien RN) PRN Medication Order 06/04/2024 06/05/2024 06/06/2024 acetaminophen (TYLENOL) tablet 650 mg 650 mg, oral, Every 6 hours PRN, mild pain, fever - temperature GREATER than 38 C (100.4 F), Starting on Thu06/03/24 at 1316 LORazepam (ATIVAN) tablet 1 mg 1 mg, oral, Every 12 hours PRN, anxiety, Starting on Thu06/03/24 at 1400 ondansetron (PF) (ZOFRAN) injection 4 mg 4 mg, intravenous, Every 6 hours PRN, vomiting, nausea, Starting on Thu06/03/24 at 1316, -ONLY give IV if patient is unable to take orally. -If inadequate response within 30 minutes, proceed to next-line agent or contact provider if no further options ordered. sodium chloride 0.9 % flush 10 mL(Linked Group 1) 10 mL, intravenous, As needed, line care, Starting on Thu06/03/24 at 1316 Linked Groups Order Group 1: Insert peripheral IV (CANCELED) STAT, Once, On Thu06/03/24 at 1317, For 1 occurrence And Maintain IV access (CANCELED) Until discontinued, Starting on Thu06/03/24 at 1317, Until Specified And Saline lock IV (CANCELED) Routine, Once, On Thu06/03/24 at 1317, For 1 occurrence And sodium chloride 0.9 % flush 10 mLJump to med 10 mL, intravenous, 2 times daily, First dose on Thu06/03/24 at 1320 And sodium chloride 0.9 % flush 10 mLJump to med 10 mL, intravenous, As needed, line care, Starting on Thu06/03/24 at 1316 documented in this encounter Orders Medications Ordered That Demetri ht Not Have Been Administered Count Last Ordered Date First Ordered Date acetaminophen (TYLENOL) tablet 650 mg 1 lactated Ringer's infusion 06/03/2024 LORazepam (ATIVAN) tablet 1 mg 1 06/03/2024 ondansetron (PF) (ZOFRAN) injection 4 mg 06/03/2024 sodium chloride 0.9 % flush 10 mL 025 sodium chloride 0.9 % infusion 1 06/03/2024 Admission Count Last Ordered Date First Orde red Date ADMIT TO INPATIENT 06/03/2024 INITIATE OBSERVATION STATUS 06/03/2024 Transfer Count Last Ordered Date First Orde red Date TRANSFER PATIENT TO NEW UNIT 1 06/05/2024 ED TO FLOOR BED REQUEST 06/03/2024 Discharge Count Last Ordered Date First Orde red Date DISCHARGE PATIENT 1 06/06/2024 documented in this encounter Care Teams Credit Portfolio Advisor Relationship Specialty Start Date End Date Talya Harrington MD [address] [place] [address] PCP - General Internal Medicine 06/03/24 documented as of this encounter
--- OUTSIDE RECORDS SUMMARY | 2024-06-08 12:52 | XMS_ITS | Clinical Summary ---
Author Organization [facility] Address [address] [address] Phone Care Team Providers Care Banana Loader Name Role Phone Talya Harrington MD Primary Care Provider [phone] Encounters Date Type Department Care Team Description 06/04/2024 Orders Only [facility] [address] [address] Manuel Nicole MD from Last 3 Months Social History Tobacco Use Types Packs/Day Years Used Date Smoking Tobacco: Never Assessed Sex and Gender Information Value Date Recorded Sex Assigned at Not on file Legal Sex Male 3:43 PM EDT Gender Identity Not on file Sexual Orientation Not on file Plan of Treatment Upcoming Encounters Date Type Department Care Team (Late st Contact Info) Description 06/24/2024 9:30 AM EDT Office Visit [facility] [address] [phone] Manuel Nicole MD [facility] [address] Health Maintenance Due Date Last Done Comments Hepatitis B Vaccine (1 of 3 - 19+ 3-dose series) 08/02 Pneumococcal Vaccine: 50+ Years (1 of 2 - PCV) 987 Colorectal Cancer Screening: Annual FOBT 08/02/2016 Colorectal Cancer Screening: Colonoscopy 08/02/2016 Colorectal Cancer Screening: Sigmoidoscopy 08/02/2016 Influenza Vaccine (Season Ended) 2024 Procedures Procedure Name Priority Date/Time Associated Diagnosis Comments ANTI-NEUTROPHILIC CYTOPLASMIC ANTIBODY Routine 06/04/2024 6:32 AM EDT from Last 3 Months Results * (ABNORMAL) Anti-neutrophilic cytoplasmic antibody (06/04/2024 6:32 AM EDT) Myeloperoxidase Ab Negative Negative M [facility] Myeloperoxidase Quantitative 1 <=20 units [facility] Proteinase 3 Ab Positive(A) Negative [facility] PR3 Ab 47(H) <=20 units [facility] 06/04/2024 6:32 AM EDT 06/04/2024 6:57 AM EDT us Manuel Nicole MD LAB BLOOD ORDERABLES Final Resu lt JENNI [facility] [address] [place] [address] from Last 3 Months Insurance [employer] Care Teams Banana Loader Relationship Specialty Start Date End Date Talya Harrington MD [address] [place] [address] PCP - General Internal Medicine 06/07/24
--- OUTSIDE RECORDS SUMMARY | 2024-06-08 12:52 | XMS_ITS | Clinical Summary ---
Author Organization [facility] Address [address] [place] [address] Phone Care Team Providers Care Special Programs Director Name Role Phone Talya Harrington MD Primary Care Provider [phone] Allergies No known active allergies Medications bisoprolol (ZEBETA) 5 mg tablet Take 1 tablet (5 mg total) by mouth 1 (one) time each day. 05/23/2024 Active aspirin 81 mg EC tablet Take 1 tablet (81 mg total) by mouth 1 (one) time each day. Active LORazepam (ATIVAN) 0.5 mg tablet Take 1 tablet (0.5 mg total) by mouth 1 (one) time each day if needed for anxiety. Max Daily Amount: 0.5 mg Active calcitrioL (ROCALTROL) 0.5 mcg capsule Take 1 capsule (0.5 mcg total) by mouth 1 (one) time each day. 30 capsule 2 06/07/2024 5 Active allopurinoL (ZYLOPRIM) 100 mg tablet Take 1 tablet (100 mg total) by mouth 1 (one) time each day. 30 each 2 06/06/2024 5 Active Active Problems Problem Noted Date Diagnosed Date FARHEEN (acute kidney injury) (CMS/HCC V24) 06/04/19 25 Renal failure, unspecified chronicity 06/03/2024 Encounters Date Type Department Care Team Description 06/03/2024 9:45 AM EDT - 06/06/2024 1:32 PM EDT Hospital Encounter [facility] Urology [address] [place] [address] Regina Oconnell DO Flores, Carlos M, MD Seralathan, Manikandan, MD Mohani, Priya, MD Renal failure, unspecified chronicity (Primary Dx); Uremia; FARHEEN (acute kidney injury) ([facility] V24) Discharge Disposition: Home or Self Care from Last 3 Months Social History Tobacco [...] on file Sexual Orientation Not on file Obstetrics History Last Filed Vital Signs Vital Sign Reading [...] Mass Index 33.45 06/03/2024 9:39 AM EDT Plan of Treatment Upcoming Encounters Date Type Department Care Team (Late st Contact Info) Description 06/13/2024 8:00 AM EDT Appointment [facility] Interventional Radiology [address] [place] [address] Health Maintenance Due Date Last Done Comments DTaP,Tdap,and Td Vaccines (1 - Tdap) 08/02/1986 Hepatitis B Vaccines (1 of 3 - 19+ 3-dose series) 08/02/1986 Pneumococcal Vaccine: 50+ Years (1 of 1 - PCV) 08/02/2017 Zoster Vaccines (1 of 2) 08/02/2017 COVID-19 Vaccine (3 - 2023-2 5 season) 2023 06/07/2020, 05/17/2020 Cholesterol Screening (Lipid Panel) 06/03/2024 Colorectal Cancer Screening: Colonoscopy 06/03/2024 Depression Screening 06/03/2024 HIV Screening 06/03/2024 Social Influencers of Health Screening 06/03/2024 Influenza Vaccine (Season Ended) 2024 Hepatitis C Screening Completed 06/04/2024 HIB Vaccines Aged Out No longer eligi ble based on patient's age to complete this topic HPV Vaccines Aged Out No longer eligi ble based on patient's age to complete this topic Hepatitis A Vaccines Aged Out No long er eligible based on patient's age to complete this topic IPV Vaccines Aged Out No longer eligi ble based on patient's age to complete this topic MMR Vaccines Aged Out No longer eligi ble based on patient's age to complete this topic Meningococcal ACWY Vaccine Aged Out N o longer eligible based on patient's age to complete this topic Meningococcal B Vaccine Aged Out No l onger eligible based on patient's age to complete this topic Pneumococcal Vaccine: Pediatrics (0 to 5 Years) and At-Risk Patients (6 to 64 Years) Aged Out No longer eligible b ased on patient's age to complete this topic RSV Immunization Patients Under 20 months Aged Out No longer eligible b ased on patient's age to complete this topic Varicella Vaccines Aged Out No longer eligible based on patient's age to complete this topic Procedures Procedure Name Priority Date/Time Associated Diagnosis Comments ECG ANNOTATED 06/07/2024 CBC WITH AUTO DIFFERENTIAL Routine 06/06/2024 5:47 AM EDT CBC AND DIFFERENTIAL Routine 06/06/2024 5:47 AM EDT BASIC METABOLIC PANEL Routine 06/06/2024 5:47 AM EDT MAGNESIUM Routine 06/06/2024 5:47 AM EDT PHOSPHORUS Routine 06/06/2024 5:47 AM EDT BASIC METABOLIC PANEL Routine 06/05/2024 8:19 AM EDT MICROALBUMIN CREATININE URINE RATIO Routine 06/04/2024 5:48 PM EDT SMALL URINE CULTURE TUBE Routine 06/05/19 5:43 PM EDT EXTRA TUBES Routine 06/04/2024 5:43 PM EDT PROTEIN, URINE, 24H Routine 06/04/2024 4 :36 PM EDT IMMUNOGLOBULINS IGG, IGA, IGM Routine 06/04/2024 6:33 AM EDT VITAMIN D 25 HYDROXY Routine 06/04/2024 6:33 AM EDT PARATHYROID HORMONE INTACT Routine 06/04/2024 6:33 AM EDT IRON AND TIBC Routine 06/04/2024 6:33 AM EDT FERRITIN Routine 06/04/2024 6:33 AM EDT HEPATITIS B SURFACE ANTIGEN WITH CONFIRMATION Routine 06/04/2024 6:33 AM EDT KAPPA-LAMBDA QUANTITATIVE FREE LIGHT CHAINS Routine 06/04/2024 6:33 AM EDT HEPATITIS C ANTIBODY Routine 06/04/2024 6:33 AM EDT C4 COMPLEMENT Routine 06/04/2024 6:33 AM EDT C3 COMPLEMENT Routine 06/04/2024 6:33 AM EDT URIC ACID Routine 06/04/2024 6:33 AM EDT MAGNESIUM Routine 06/04/2024 6:33 AM EDT BASIC METABOLIC PANEL Routine 06/04/2024 6:33 AM EDT MS IMMUNOFIXATION ELECTROPHORESIS SERUM Routine 06/04/2024 6:32 AM EDT IMMUNOFIXATION ELECTROPHORESIS Routine 06/04/2024 6:32 AM EDT CBC WITH AUTO DIFFERENTIAL Routine 06/04/2024 6:32 AM EDT IMMUNOFIXATION ELECTROPHORESIS Routine 06/04/2024 6:32 AM EDT ANTI-NEUTROPHILIC CYTOPLASMIC ANTIBODY Routine 06/04/2024 6:32 AM EDT LIBBY IFA WITH TITER AND PATTERN Routine 06/04/2024 6:32 AM EDT ACTIVATED PARTIAL THROMBOPLASTIN TIME Routine 06/04/2024 6:32 AM EDT PROTHROMBIN TIME WITH INR Routine 06/04/2024 6:32 AM EDT SEDIMENTATION RATE Routine 06/04/2024 6: 32 AM EDT CBC AND DIFFERENTIAL Routine 06/04/2024 6:32 AM EDT CREATININE, URINE, RANDOM Routine 06/03/2024 4:32 PM EDT SODIUM, URINE, RANDOM Routine 06/03/2024 4:32 PM EDT EOSINOPHILS URINE Routine 06/03/2024 4:3 2 PM EDT GLOMERULAR BASEMENT MEMBRANE ANTIBODIES Routine 06/03/2024 4:17 PM EDT SMALL URINE CULTURE TUBE STAT 06/04/19 12:53 PM EDT URINALYSIS WITH REFLEX MICROSCOPIC AND CULTURE STAT 06/03/2024 12:53 PM EDT URINALYSIS WITH REFLEX MICROSCOPIC AND CULTURE STAT 06/03/2024 12:[address] CHEST/ABDOMEN/PELVIS WO CONTRAST STAT 06/03/2024 12:21 PM EDT ECG 12-LEAD STAT 06/03/2024 10:40 AM EDT LACTATE STAT 06/03/2024 10:31 AM EDT B-TYPE NATRIURETIC PEPTIDE STAT 06/03/2024 10:31 AM EDT TROPONIN I HIGH SENSITIVITY STAT 06/03/2024 10:31 AM EDT VENOUS BLOOD GAS STAT 06/03/2024 10:3 1 AM EDT MAGNESIUM STAT 06/03/2024 10:31 AM EDT CBC WITH AUTO DIFFERENTIAL STAT 06/03/2024 10:31 AM EDT COMPREHENSIVE METABOLIC PANEL STAT 06/03/2024 10:31 AM EDT CBC AND DIFFERENTIAL STAT 06/03/2024 10:31 AM EDT US RETROPERITONEAL COMPLETE STAT 06/03/2024 10:22 AM EDT from Last 3 Months Results * ECG-Annotated (06/07/2024) us Provider Onbase MD ECG ORDERABLES Final Result * (ABNORMAL) CBC auto differential (06/06/2024 5:47 AM EDT) Only the most recent of3 resultswithin the time period is included. WBC 11.0(H) 4.8 - 10.8 K/mcL LAB HEMETOLOGY METHOD 06/06/2024 6:55 AM EDT [facility] RBC 3.90(L) 4.50 - 5.50 M/mcL LAB HEMETOLOGY METHOD 06/06/2024 6:55 AM EDT [facility] Hemoglobin 11.1(L) 13.5 - 17.5 g/dL LAB HEMETOLOGY METHOD 06/06/2024 6:55 AM [facility] Hematocrit 34.7(L) 42.0 - 54.0 % LAB HEMETOLOGY METHOD 06/06/2024 6:55 AM [facility] MCV 88.7 79.0 - 98.0 FL LAB HEMETOLOGY METHOD 06/06/2024 6:55 AM [facility] MCH 28.4 27.0 - 32.0 pcg LAB HEMETOLOGY METHOD 06/06/2024 6:55 AM [facility] MCHC 32.0 32.0 - 37.0 g/dL LAB HEMETOLOGY METHOD 06/06/2024 6:55 AM [facility] RDW 15.3(H) 11.0 - 15.0 % LAB HEMETOLOGY METHOD 06/06/2024 6:55 AM [facility] Platelets 271 130 - 400 K/mcL LAB HEMETOLOGY METHOD 06/06/2024 6:55 AM [facility] MPV 11.0 7.0 - 11.0 FL LAB HEMETOLOGY METHOD 06/06/2024 6:55 AM [facility] NRBC 0.0 <1.0 % LAB HEMETOLOGY METHOD 06/06/2024 6:55 AM [facility] NRBC Absolute 0.00 <0.10 K/mcL LAB HEMETOLOGY METHOD 06/06/2024 6:55 AM [facility] Neutrophils Relative 55.2 % LAB HEMETOLOGY METHOD 06/06/2024 6:55 AM [facility] Lymphocytes Relative 31.2 % LAB HEMETOLOGY METHOD 06/06/2024 6:55 AM [facility] Monocytes Relative 8.6 % LAB HEMETOLOGY METHOD 06/06/2024 6:55 AM [facility] Eosinophils Relative 3.5 % LAB HEMETOLOGY METHOD 06/06/2024 6:55 AM EDT [facility] Basophils Relative 0.9 % LAB HEMETOLOGY METHOD 06/06/2024 6:55 AM EDT [facility] Immature Granulocytes Relative 0.6 % LAB [...] [facility] [address] [place] [address], * (ABNORMAL) Phosphorus (06/06/2024 5:47 AM EDT) [facility] Phosphorus 4.9(H) 2.5 - 4.5 mg/dL LAB CHEMISTRY METHOD 06/06/2024 7:30 AM EDT [facility] Blood Venous blood specimen / Unknown Venipuncture / Unknown 06/06/2024 5:47 AM EDT 06/06/2024 6:15 AM EDT us Francisco Abreu MD LAB BLOOD ORDERABLES Fi nal Result Performing Organization Address City/[facility]/ZIP Co de Phone Number [facility] [address] [place] [address], [place] [phone] * Magnesium (06/06/2024 5:47 AM EDT) Only the most recent of3 resultswithin the time period is included. [facility] Magnesium 1.9 1.9 - 2.6 mg/dL LAB CHEMISTRY METHOD 06/06/2024 7:30 AM EDT [facility] Blood Venous blood specimen / Unknown Venipuncture / Unknown 06/06/2024 5:47 AM EDT 06/06/2024 6:15 AM EDT us Francisco Abreu MD LAB BLOOD ORDERABLES Fi nal Result Performing Organization Address City/[facility]/ZIP Co de Phone Number [facility] [address] [place] [address], [place] [phone] * (ABNORMAL) Basic metabolic panel (06/06/2024 5:47 AM EDT) Only the most recent of3 resultswithin the time period is included. [facility] Sodium 137 133 - 145 mmol/L LAB CHEMISTRY METHOD 06/06/2024 7:37 AM EDT [facility] Potassium 3.8 3.5 - 5.5 mmol/L LAB CHEMISTRY METHOD 06/06/2024 7:37 AM EDT [facility] Chloride 96 96 - 110 mmol/L LAB CHEMISTRY METHOD 06/06/2024 7:37 AM [facility] CO2 29 21 - 32 mmol/L LAB CHEMISTRY METHOD 06/06/2024 7:37 AM [facility] Anion Gap 12(H) 3 - 11 LAB CHEMISTRY METHOD 06/06/2024 7:37 AM [facility] Glucose 95 70 - 100 mg/dL LAB CHEMISTRY METHOD 06/06/2024 7:37 AM [facility] BUN 78(H) 5 - 25 mg/dL LAB CHEMISTRY METHOD 06/06/2024 7:37 AM [facility] Creatinine 5.09(H) 0.70 - 1.30 mg/dL LAB CHEMISTRY METHOD 06/06/2024 7:37 AM [facility] eGFR 13(L) >=60 mL/min/1. 73m2 LAB CHEMISTRY METHOD 06/06/2024 7:37 AM [facility] Comment:Calculation based on the??Chronic Kidney Disease Epidemiology Collaboration (CKD-EPI) equation refit??without adjustment for race. BUN/Creatinine Ratio 15.3 LAB CHEMISTRY METHOD 06/06/2024 7:37 AM [facility] Calcium 9.6 8.5 - 10.5 mg/dL LAB CHEMISTRY METHOD 06/06/2024 7:37 AM [facility] Blood Venous blood specimen / Unknown Venipuncture / Unknown 06/06/2024 5:47 AM EDT 06/06/2024 6:15 AM EDT Francisco Abreu MD LAB BLOOD ORDERABLES Fi nal Result [facility] [address] [place] [address], * (ABNORMAL) Microalbumin creatinine urine ratio (06/04/2024 [...] ORDERABLES Final Res ult Performing Organization Address [facility]/ZIP Co de Phone Number [facility] [address] [place] [address], [place] [phone] * Small urine culture tube (06/04/2024 5:43 PM EDT) Only the most recent of2 resultswithin the time period is included. [facility] Extra Tube Hold for add-ons. 06/04/2024 8:01 PM EDT [facility] Comment:Auto resulted. Urine Urine specimen obtained by clean catch procedure / Unknown 06/04/2024 5:43 PM EDT 06/04/2024 6:56 PM EDT Francisco Abreu MD LAB URINE ORDERABLES Fi nal Result Performing Organization Address [facility]/ZIP Co de Phone Number [facility] [address] [place] [address], [place] [phone] * (ABNORMAL) Protein, urine, 24H (06/04/2024 4:36 PM EDT) [facility] Protein, Urine 69 mg/dL LAB CHEMISTRY METHOD [...] ORDERABLES Final Resu lt Performing Organization Address City/[facility]/ZIP Co de Phone Number [facility] [address] [place] [address], [place] [phone] * Hepatitis C antibody (06/04/2024 6:33 AM EDT) [facility] Hepatitis C Antibody Negative Negative LAB CHEMISTRY METHOD 06/04/2024 9:32 AM EDT [facility] Blood Venous blood specimen / Unknown Venipuncture / Unknown 06/04/2024 6:33 AM EDT 06/04/2024 6:57 AM EDT us Manuel Nicole MD LAB BLOOD ORDERABLES Final Resu lt [facility] [address] [place] [address], [place] [phone] * Hepatitis B surface antigen with reflex to confirmation (06/04/2024 6:33 AM EDT) [facility] Hepatitis B Surface Ag Negative Negative LAB CHEMISTRY METHOD 06/04/2024 9:03 AM EDT [facility] Blood Venous blood specimen / Unknown Venipuncture / Unknown 06/04/2024 6:33 AM EDT 06/04/2024 6:57 AM EDT Narrative [facility] - 06/04/2024 9:03 AM EDT Over the counter supplements containing high doses of biotin may interfere with this assay. ??If interference is suspected, patients shoud be retested after refraining from biotin supplements for 72 hours. us Manuel Nicole MD LAB BLOOD ORDERABLES Final Resu lt [facility] [address] [place] [address], [place] [phone] * (ABNORMAL) Bullard-lambda free light chains, quantitative (06/04/2024 6:33 AM EDT) [place] Free Light Chain 9.68(H) 0.33 - 1.94 mg/dL 06/06/2024 1:45 PM EDT [facility] Lambda Free Light Chain 6.69(H) 0.57 - 2.63 mg/dL 06/06/2024 1:45 PM EDT [facility] Bullard/Lambda FLC Ratio 1.45 0.26 - 1.65 06/06/2024 1:45 PM EDT [facility] Comment: Test performed at [facility], [address] , [place], [place] ??[address] ? [phone] Nohelia Zaidi MD, PhD - Bi Specialist Blood Venous blood specimen / Unknown Venipuncture / Unknown 06/04/2024 6:33 AM EDT 06/04/2024 6:57 AM EDT us Manuel Nicole MD LAB BLOOD ORDERABLES Final Resu lt [facility] [address] [place] [address] * Iron and TIBC (06/04/2024 6:33 AM [...] ORDERABLES Final Resu lt Performing Organization Address [facility]/ZIP Tn de Phone Number [facility] [address] [place] [address], [place] [phone] * (ABNORMAL) Vitamin D 25 hydroxy (06/04/2024 6:33 AM EDT) Pathologist [facility] Vit D, 25-Hydroxy 18.9(L) 30.0 - 80.0 ng/mL LAB CHEMISTRY METHOD 06/04/2024 8:52 AM EDT [facility] Blood Venous blood specimen / Unknown Venipuncture / Unknown 06/04/2024 6:33 AM EDT 06/04/2024 6:57 AM EDT us Manuel Nicole MD LAB BLOOD ORDERABLES Final Resu lt Performing Organization Address [facility]/ZIP Co de Phone Number [facility] [address] [place] [address], [place] [phone] * Immunoglobulins IgG, IgA, IgM (06/04/2024 6:33 [...] [facility] [address] [place] [address], [place] [phone] * C3 complement (06/04/2024 6:33 AM EDT) C3 Complement 127 88 - 201 mg/dL LAB CHEMISTRY METHOD 06/04/2024 8:03 AM EDT [facility] Blood Venous blood specimen / Unknown Venipuncture / Unknown 06/04/2024 6:33 AM EDT 06/04/2024 6:57 AM EDT us Manuel Nicole MD LAB BLOOD ORDERABLES Final Resu lt [facility] [address] [place] [address], [place] [phone] * C4 complement (06/04/2024 6:33 AM EDT) C4 Complement 37 16 - 47 mg/dL LAB CHEMISTRY METHOD 06/04/2024 7:50 AM EDT [facility] Blood Venous blood specimen / Unknown Venipuncture / Unknown 06/04/2024 6:33 AM EDT 06/04/2024 6:57 AM EDT us Manuel Nicole MD LAB BLOOD ORDERABLES Final Resu lt Performing Organization Address City/[facility]/ZIP Co de Phone Number [facility] [address] [place] [address], [place] [phone] * (ABNORMAL) Uric acid (06/04/2024 6:33 AM EDT) Uric Acid 9.6(H) 3.7 - 9.2 mg/dL LAB CHEMISTRY METHOD 06/04/2024 7:50 AM EDT [facility] Blood Venous blood specimen / Unknown Venipuncture / Unknown 06/04/2024 6:33 AM EDT 06/04/2024 6:57 AM EDT us Manuel Nicole MD LAB BLOOD ORDERABLES Final Resu lt Performing Organization Address [facility] Co de Phone Number [facility] [address] [place] [address], [place] [phone] * (ABNORMAL) Parathyroid hormone intact (06/04/2024 6:33 [...] ORDERABLES Final Resu lt Performing Organization Address City/[facility]/ZIP Co de Phone Number [facility] [address] [place] [address], [place] [phone] * Ferritin (06/04/2024 6:33 AM EDT) Ferritin 164 26 - 388 ng/mL LAB CHEMISTRY METHOD 06/04/2024 7:50 AM EDT [facility] Blood Venous blood specimen / Unknown Venipuncture / Unknown 06/04/2024 6:33 AM EDT 06/04/2024 6:57 AM EDT us Manuel Nicole MD LAB BLOOD ORDERABLES Final Resu lt Performing Organization Address City/[facility]/ZIP Co de Phone Number [facility] [address] [place] [address], [place] [phone] * Pathologist Review Immunofixation (06/04/2024 6:32 AM EDT) Pathologist Interpretation 06/06/2024 5:04 PM EDT [facility] Blood Venous blood specimen / Unknown Venipuncture / Unknown 06/04/2024 6:32 AM EDT 06/04/2024 6:57 AM EDT us Manuel Nicole MD LAB BLOOD ORDERABLES Final Resu lt Performing Organization Address [facility]/ZIP Co de Phone Number [facility] [address] [place] [address], [place] [phone] * LIBBY IFA with titer and pattern (06/04/2024 6:32 AM EDT) LIBBY Negative Negative 06/04/2024 12:45 PM EDT [facility] Blood Venous blood specimen / Unknown Venipuncture / Unknown 06/04/2024 6:32 AM EDT 06/04/2024 6:57 AM EDT us Manuel Nicole MD LAB BLOOD ORDERABLES Final Resu lt [facility] [address] [place] [address], [place] [phone] * (ABNORMAL) Anti-neutrophilic cytoplasmic antibody (06/04/2024 6:32 AM EDT) Pathologist [facility] Myeloperoxidase Ab Negative Negative LAB CHEMISTRY METHOD [...] ORDERABLES Final Resu lt Performing Organization Address City/[facility]/ZIP Co de Phone Number [facility] [address] [place] [address], [place] [phone] * Activated partial thromboplastin time (06/04/2024 6:32 AM EDT) [facility] aPTT 34.4 24.1 - 39.3 sec LAB COAGULATION METHOD 06/04/2024 7:19 AM EDT [facility] Blood Venous blood specimen / Unknown Venipuncture / Unknown 06/04/2024 6:32 AM EDT 06/04/2024 6:57 AM EDT us Manuel Nicole MD LAB BLOOD ORDERABLES Final Resu lt [facility] [address] [place] [address], [place] [phone] * (ABNORMAL) Sedimentation rate (06/04/2024 6:32 AM EDT) [facility] Sed Rate 116(H) 0 - 20 mm/hr LAB HEMETOLOGY METHOD 06/04/2024 7:19 AM EDT [facility] Blood Venous blood specimen / Unknown Venipuncture / Unknown 06/04/2024 6:32 AM EDT 06/04/2024 6:57 AM EDT us Manuel Nicole MD LAB BLOOD ORDERABLES Final Resu lt Performing Organization Address City/[facility]/ZIP Co de Phone Number [facility] [address] [place] [address], [place] [phone] * Prothrombin time with INR (06/04/2024 6:32 AM EDT) [facility] Protime 12.5 10.6 - 13.9 sec LAB [...] [facility] [address] [place] [address], [place] [phone] * Immunofixation electrophoresis serum (06/04/2024 6:32 AM EDT) [facility] Immunofixation Result, Serum No monoclonal immunoglobulins detected. LAB CHEMISTRY METHOD 06/06/2024 5:04 PM EDT [facility] Blood Venous blood specimen / Unknown Venipuncture / Unknown 06/04/2024 6:32 AM EDT 06/04/2024 6:57 AM EDT us Manuel Nicole MD LAB BLOOD ORDERABLES Final Resu lt Performing Organization Address City/[facility]/ZIP Co de Phone Number [facility] [address] [place] [address], [place] [phone] * Eosinophils, urine (06/03/2024 4:32 PM EDT) [...] ORDERABLES Final Resu lt Performing Organization Address [facility] Co de Phone Number [facility] [address] [place] [address], [place] [phone] * Sodium, urine, random (06/03/2024 4:32 PM EDT) Sodium, Ur 78 mmol/L LAB CHEMISTRY METHOD 06/03/2024 9:55 PM EDT [facility] Urine Urine specimen obtained by clean catch procedure / Unknown Non-blood Collection / Unknown 06/03/2024 4:32 PM EDT 06/03/2024 9:28 PM EDT us Manuel Nicole MD LAB URINE ORDERABLES Final Resu lt Performing Organization Address City/[facility]/ZIP Co de Phone Number [facility] [address] [place] [address], [place] [phone] * Creatinine, urine, random (06/03/2024 4:32 PM EDT) Creatinine, Urine 52.0 mg/dL LAB CHEMISTRY METHOD 06/03/2024 9:55 PM EDT [facility] Urine Urine specimen obtained by clean catch procedure / Unknown Non-blood Collection / Unknown 06/03/2024 4:32 PM EDT 06/03/2024 9:28 PM EDT us Manuel Nicole MD LAB URINE ORDERABLES Final Resu lt Performing Organization Address City/[facility]/ZIP Co de Phone Number [facility] [address] [place] [address], [place] [phone] * Glomerular basement membrane antibodies (06/03/2024 4:17 PM EDT) Pathologist [facility] Glomerular Basement Membrane <1.5 <7.0 U/mL 06/07/2024 6:38 AM EDT [facility] Comment: INTERPRETATION: Negative Test performed at [facility], [address], [place], [place] ??[address] ? [phone] Nohelia Zaidi MD, PhD - Bi Specialist Blood Venous blood specimen / Unknown Venipuncture / Unknown 06/03/2024 4:17 PM EDT 06/03/2024 4:37 PM EDT us Manuel Nicole MD LAB BLOOD ORDERABLES Final Resu lt [facility] [address] [place] [address] * (ABNORMAL) Urinalysis with reflex microscopic and culture (06/03/2024 12:53 PM EDT) Pathologist [facility] Specific [place] Urine 1.011 1.003 - 1.030 LAB URINALYSIS - AUTOMATED METHOD 06/03/2024 1:24 PM EDT [facility] pH, Urine 6.0 5.0 - 8.0 pH LAB URINALYSIS - AUTOMATED METHOD 06/03/2024 1:24 PM [facility] Leukocytes, Urine Negative Negative LAB URINALYSIS - AUTOMATED METHOD 06/03/2024 1:24 PM [facility] Nitrite, Urine Negative Negative LAB URINALYSIS - AUTOMATED METHOD 06/03/2024 1:24 PM [facility] Protein, Urine 100(A) <=Trace mg/dL LAB URINALYSIS - AUTOMATED METHOD 06/03/2024 1:24 PM [facility] Glucose, Urine Negative Negative mg/dL LAB URINALYSIS - AUTOMATED METHOD 06/03/2024 1:24 PM [facility] Ketones, Urine Negative Negative mg/dL LAB URINALYSIS - AUTOMATED METHOD 06/03/2024 1:24 PM [facility] Urobilinogen, Urine 0.2 0.2 - 1.0 mg/dL LAB URINALYSIS - AUTOMATED METHOD 06/03/2024 1:24 PM [facility] Bilirubin, Urine Negative Negative LAB URINALYSIS - AUTOMATED METHOD 06/03/2024 1:24 PM [facility] Blood, Urine Trace(A) Negative LAB URINALYSIS - AUTOMATED METHOD 06/03/2024 1:24 PM [facility] RBC, Urine 5.2(H) 0 - 4 /HPF LAB URINALYSIS - AUTOMATED METHOD 06/03/2024 1:24 PM [facility] WBC, Urine 1.0 0 - 4 /HPF LAB URINALYSIS - AUTOMATED METHOD 06/03/2024 1:24 PM [facility] Squamous Epithelial, Urine 9 0 - 60 /LPF LAB URINALYSIS - AUTOMATED METHOD 06/03/2024 1:24 PM [facility] Bacteria, Urine Negative Negative [...] [facility] [address] [place] [address], [place] [phone] * CT Chest/Abdomen/Pelvis wo Contrast (06/03/2024 12:21 PM EDT) Anatomical Region Laterality Modality Body Computed Tomogra phy 06/03/2024 12:3 6 PM EDT Impressions 06/03/2024 12:44 PM EDT Negative noncontrast CT. ??No hydronephrosis. -------- FINAL REPORT -------- Dictated By: Mikey Gonzales Dictated Date: 06/03/2024 12:36 ET Assigned Physician: Mikey Gonzales Reviewed and Electronically Signed By: Mikey Gonzales Signed Date: 06/03/2024 12:44 ET Workstation ID: [id number] Transcribed By: Self Edit Transcribed Date: 06/03/2024 [...] Signed Date: 06/03/2024 12:44 ET Workstation ID: [id number] Transcribed By: Self Edit Transcribed Date: 06/03/2024 12:36 ET Regina Oconnell DO IMG CT PROCEDURES Final R esult * ECG 12 lead (06/03/2024 10:40 AM EDT) Pathologist [facility] Ventricular Rate ECG 102 BPM GEMUSE Atrial Rate 102 BPM GEMUSE P-R Interval 210 ms GEMUSE QRS Duration 88 ms GEMUSE Q-T Interval 360 ms GEMUSE QTc 469 ms GEMUSE P Wave Orford 61 degrees GEMUSE R Orford 11 degrees GEMUSE T [place] 30 degrees GEMUSE ECG Interpretation Sinus tachycardia with 1st degree A-V block Nonspecific T wave abnormality Abnormal ECG No previous ECGs available Confirmed by Fredy BARTLETT YUFENG ([id number]) on 06/04/2024 8:16:48 AM GEMUSE 06/03/2024 10:4 0 AM EDT 06/04/2024 8:16 AM EDT Regina Oconnell DO ECG ORDERABLES Final Res ult GEMUSE * Troponin I high sensitivity (06/03/2024 10:31 AM EDT) Pathologist [facility] High Sensitivity Troponin I 12 <=79 [...] taking more than 20 mg/day of biotin. Regina Oconnell DO LAB BLOOD ORDERABLES Pat l Result Performing Organization Address [facility]/ZIP Co de Phone Number [facility] [address] [place] [address], [place] [phone] * B-type natriuretic peptide (06/03/2024 10:31 AM EDT) BNP 20 <=100 pcg/mL LAB CHEMISTRY METHOD 06/03/2024 11:30 AM EDT [facility] Blood Venous blood specimen / Unknown Venipuncture / Unknown 06/03/2024 10:31 AM EDT 06/03/2024 10:51 AM EDT us Regina Oconnell DO LAB BLOOD ORDERABLES Pat l Result Performing Organization Address [facility]/ZIP Co de Phone Number [facility] [address] [place] [address], [place] [phone] * (ABNORMAL) Lactate (06/03/2024 10:31 AM EDT) Lactate 2.7(H) 0.4 - 2.0 mmol/L LAB CHEMISTRY METHOD 06/03/2024 11:32 AM EDT [facility] Blood Venous blood specimen / Unknown Venipuncture / Unknown 06/03/2024 10:31 AM EDT 06/03/2024 10:50 AM EDT us Regina Oconnell DO LAB BLOOD ORDERABLES Pat l Result [facility] [address] [place] [address], [place] [phone] * (ABNORMAL) Venous blood gas (06/03/2024 10:31 [...] 10:31 AM EDT 06/03/2024 10:50 AM EDT [facility] LAB BLOOD ORDERABLES Pat l Result [facility] [address] [place] [address], [place] [phone] * (ABNORMAL) Comprehensive metabolic panel (06/03/2024 10:31 AM EDT) Sodium 138 133 - 145 mmol/L LAB CHEMISTRY METHOD 06/03/2024 11:26 AM EDT [facility] Potassium 4.4 3.5 - 5.5 mmol/L LAB CHEMISTRY METHOD 06/03/2024 11:26 AM [facility] Chloride 107 96 - 110 mmol/L LAB CHEMISTRY METHOD 06/03/2024 11:26 AM [facility] CO2 16(L) 21 - 32 mmol/L LAB CHEMISTRY METHOD 06/03/2024 11:26 AM [facility] Anion Gap 15(H) 3 - 11 LAB CHEMISTRY METHOD 06/03/2024 11:26 AM [facility] Glucose 157(H) 70 - 100 mg/dL LAB CHEMISTRY METHOD 06/03/2024 11:26 AM [facility] BUN 90(H) 5 - 25 mg/dL LAB CHEMISTRY METHOD 06/03/2024 11:26 AM [facility] Creatinine 5.21(H) 0.70 - 1.30 mg/dL LAB CHEMISTRY METHOD 06/03/2024 11:26 AM [facility] eGFR 12(L) >=60 mL/min/1. 73m2 LAB CHEMISTRY METHOD 06/03/2024 11:26 AM [facility] Comment:Calculation based on the??Chronic Kidney Disease Epidemiology Collaboration (CKD-EPI) equation refit??without adjustment for race. BUN/Creatinine Ratio 17.3 LAB CHEMISTRY METHOD 06/03/2024 11:26 AM [facility] Calcium 10.3 8.5 - 10.5 mg/dL LAB CHEMISTRY METHOD 06/03/2024 11:26 AM [facility] AST (SGOT) 20 10 - 42 unit/L LAB CHEMISTRY METHOD 06/03/2024 11:26 AM [facility] ALT (SGPT) 28 10 - 60 unit/L LAB CHEMISTRY METHOD 06/03/2024 11:26 AM [facility] Alkaline Phosphatase 115 42 - 121 unit/L LAB CHEMISTRY METHOD 06/03/2024 11:26 AM EDT [facility] Total Protein 8.3(H) 6.0 - 8.0 g/dL LAB CHEMISTRY METHOD 06/03/2024 11:26 AM EDT [facility] Albumin 4.2 3.2 - 5.0 g/dL LAB CHEMISTRY METHOD 06/03/2024 11:26 AM EDT [facility] Total Bilirubin 0.4 0.0 - 1.4 mg/dL LAB CHEMISTRY METHOD 06/03/2024 11:26 AM EDT [facility] Blood Venous blood specimen / Unknown Venipuncture / Unknown 06/03/2024 10:31 AM EDT 06/03/2024 10:51 AM EDT us Regina Oconnell DO LAB BLOOD ORDERABLES Pat l Result [facility] [address] [place] [address], [place] [phone] * US Retroperitoneal Complete (06/03/2024 10:22 AM [...] Signed Date: 06/03/2024 10:35 ET Workstation ID: [id number] Transcribed By: Self Edit Transcribed Date: 06/03/2024 [...] Signed Date: 06/03/2024 10:35 ET Workstation ID: [id number] Transcribed By: Self Edit Transcribed Date: 06/03/2024 10:32 ET us Ting Mckinley Oconnell DO IMG US PROCEDURES Final R esult from Last 3 Months Insurance [facility] [place] [id number] Advance Directives * Full Code - Default (Latest Code Status on File) Date Activated Date Inactivated Comments 06/03/2024 1:19 PM 06/06/2024 3:33 PM This is orde r is used when code status has not been discussed with the patient, or code status is otherwise unknown/unconfirmed To update the patient's code status, place a code status order. Do not modify or discontinue any currently active code status orders. Care Teams Special Programs Director Relationship Specialty Start Date End Date Talya Harrington MD [address] [phone] PCP - General Internal Medicine 06/03/24
== END 2024-06-08 12:31 | disposition home or self-care (01) ==
LOC: HO.HMCC 10:48
PROVIDERS: PCP Internal Medicine; Visit Provider Internal Medicine
DX: Z80.0 Family history of malignant neoplasm of digestive organs (principal); I12.9 Hypertensive chronic kidney disease with stage 1 through stage 4 chronic kidney disease, or unspecified chronic kidney disease; N18.4 Chronic kidney disease, stage 4 (severe); E78.5 Hyperlipidemia, unspecified; I10 Essential (primary) hypertension

== ENCOUNTER → 2024-06-08 10:47 | Outpatient (BNVA) | payer OTHER, SELFPAY | PROVIDERS: PCP Internal Medicine; Visit Provider Internal Medicine | DX: Z13.89 Encounter for screening for other disorder (principal) ==

== ENCOUNTER 2024-07-14 12:48 | Outpatient (AMB) | payer OTHER, SELFPAY ==
--- OUTSIDE RECORDS SUMMARY | 2024-07-14 12:53 | XMS_ITS ---
Author Organization [facility] Address [address] [place] [id number] Care Team Providers Care Commercial Drafter Name Role Phone Talya Harrington MD Primary Care Provider Peng Isaac [phone] Encounters Encounter Location Date Provider Diagnosis [facility] [address] [place] [phone] 06/09/2024 Peng Curry Plan Of Treatment No Information Progress Notes * DAMION PIZANODOB:1965 (58 yo M)Acc No.[id number]:06/09/2024 Patient:?DAMION PIZANO :1965???Age:58 Y???Sex:Male Address:[address] [place] [address], [id number] * true * Date:? Generated for Ema sykes/Beni/Noésmitting on:?07/14/2024 12:53 PM EDT
[2024-07-14 12:58] VITALS: BP 120/80; PULSE 92; RESP 18; O2SAT 96; BMI 28.6
--- NOTE | 2024-07-14 12:58 | A.OFFPC_ITS ---
Vital Signs 07/14/24 12:58 Height 5 ft 10.87 in Weight 204 lb BMI 28.6 BP 120/80 Blood Pressure Location Rt brachial Position Sitting Respiration 18 Pulse 92 Pulse Source Pulse Oximeter Pulse Oximetry (%) 96 Oxygen Delivery Method Room Air Intake Visit Reasons: 5 week follow up Intake Note: Pt is here today for 5 weeks follow up visit. Allergies No Known Allergies Allergy (Verified 07/14/24 12:58) Tobacco use date assessed: 06/08/24 Dental Screening Dental Screen Date: 05/23/24 HPI 5 week follow up HPI Details Patient presents for the follow-up of hypertension chronic kidney disease stage 4 and hyperlipidemia. 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 Patient complains of chronic right hip pain worse when standing or walking for the last few months. He denies any injury [facility] Medical History Tachycardia Hypertension Osteoarthritis of right hip FHx: colon cancer Hypertensive kidney disease, stage IV Hyperlipidemia Surgical History No pertinent past surgical history Family History Father Colon cancer, Onset Age: 77 Mother Breast CA, Onset Age: 66 Social History Household Members Other:: , Housing: House Patient Tobacco Use Status: Never used Tobacco e-Cigarette/Vaping Use: Never Used service: No Current occupational status: employed Cognitive needs: No Hearing needs: No Vision needs: Yes Questionnaire Thrive Questionnaire Date Thrive assessed: 05/23/24 I am a: Patient What is your living situation today?: I have a steady place to live Within the past 12 months, did the food you bought not last and you didn't have the money to get more?: Never true Within the past 12 months, did you worry whether your food would run out before you got money to buy more?: Never true Do you have trouble paying for medicines?: No Do you have trouble getting transportation to medical appointments?: No Do you have trouble paying your heating and electricity bill?: No Do you have trouble taking care of your child, family member or friend?: No Do you have trouble with day-to-day activities such as bathing, preparing meals, shopping, managing finances, etc.?: No Are you currently unemployed and looking for a job?: No Are you interested in more education?: No Please select the resources that you would like help with: None Currently or been in a relationship where the following occur: No concerns reported THRIVE Score: 0 JOVANA-7 AMB Questionnaire JOVANA-7 Date JOVANA - 7 assessed: 05/23/24 Source: Developed by Drs. Peng Huston, Karen Menendez, Casepr Omer and colleagues, with an educational cassia from [employer]. Review of Systems Const All systems reviewed & are unremarkable except as noted in HPI and below Eyes Reports no additional complaints ENT Reports no additional complaints Card Reports no additional complaints Resp Reports no additional complaints GI Reports no additional complaints Reports no additional complaints Physical exam (Primary Care) Vital Signs: Last Vital Signs Pulse 92 07/14/24 12:58 Resp 18 07/14/24 12:58 BP 120/80 07/14/24 12:58 Pulse Ox 96 07/14/24 12:58 Oxygen Delivery Method Room Air 07/14/24 12:58 BMI result Body Mass Index 28.6 Tobacco/Smoking Status: Tobacco use Status Tobacco use date assessed 06/08/24 07/14/24 13:03 Patient Tobacco Use Status Never used Tobacco 07/14/24 13:03 e-Cigarette/Vaping Use Never Used 07/14/24 13:03 Thrive Assessment: Date of Thrive Assessment Date Thrive assessed 05/23/24 07/14/24 13:03 Currently or been in a relationship where the following occur: No concerns reported Const General: no acute distress HENMT Head: Yes normal to inspection Eyes General: appearance normal, both eyes and all related structures Neck Neck: Yes supple Resp Effort & Inspection: normal respiratory effort Auscultation: clear to auscultation bilaterally Cardio Rhythm: regular rhythm Heart sounds: S1 normal heart sound present and S2 normal heart sound present GI Inspection: Yes normal to inspection Palpation (GI): Soft to palpation Percussion: Yes normal to percussion Auscultation: normal bowel sounds Extrem Other: There is significant decreased range of motion both hips Coding Level of Care Code Est Pt Level 4 (98778) Diagnoses Hip pain, bilateral M25.551; M25.552 Hypertensive kidney disease, stage IV I12.9; N18.4 Hyperlipidemia E78.5 Assessment & Plan Assessment & Plan (1) Hip pain, bilateral: Code(s): M25.551 - Pain in right hip; M25.552 - Pain in left hip Category: Medical Plan: Obtain x-rays of both hips and referred to physical therapy. (2) Hypertensive kidney disease, stage IV: Comment: GFR 13, 05/2024, established with twisting machine operator, negative kidney biopsy Code(s): I12.9 - Hypertensive chronic kidney disease with stage 1 through stage 4 chronic kidney disease, or unspecified chronic kidney disease; N18.4 - Chronic kidney disease, stage 4 (severe) Category: Medical Plan: Increase bisoprolol to 10 mg a day follow-up with twisting machine operator (3) Hyperlipidemia: Code(s): E78.5 - Hyperlipidemia, unspecified Category: Medical Plan: Patient has started taking atorvastatin last week. He will follow-up in 6 weeks with a fasting labs before Orders: Orders XR hip BI w PEL1V Today M25.551 - Pain in right hip, M25.552 - Pain in left hip PT Evaluation and Treatment Today M25.551 - Pain in right hip, M25.552 - Pain in left hip Complete Blood Count Auto Diff 6 Weeks E78.5 - Hyperlipidemia, unspecified, I10 - Essential (primary) hypertension, I12.9 - Hypertensive chronic kidney disease with stage 1 through stage 4 chronic kidney disease, or unspecified chronic kidney disease, N18.4 - Chronic kidney disease, stage 4 (severe) Lipid Panel 6 Weeks E78.5 - Hyperlipidemia, unspecified, I10 - Essential (primary) hypertension, I12.9 - Hypertensive chronic kidney disease with stage 1 through stage 4 chronic kidney disease, or unspecified chronic kidney disease, N18.4 - Chronic kidney disease, stage 4 (severe) Comprehensive [place]. Panel Fast 6 Weeks E78.5 - Hyperlipidemia, unspecified, I10 - Essential (primary) hypertension, I12.9 - Hypertensive chronic kidney disease with stage 1 through stage 4 chronic kidney disease, or unspecified chronic kidney disease, N18.4 - Chronic kidney disease, stage 4 (severe) Vitamin D 25-OH Total 6 Weeks E78.5 - Hyperlipidemia, unspecified, I10 - Essential (primary) hypertension, I12.9 - Hypertensive chronic kidney disease with stage 1 through stage 4 chronic kidney disease, or unspecified chronic kidney disease, N18.4 - Chronic kidney disease, stage 4 (severe)
== END 2024-07-14 13:38 | disposition home or self-care (01) ==
LOC: HO.HMCC 12:49
PROVIDERS: PCP Internal Medicine; Visit Provider Internal Medicine
DX: M25.551 Pain in right hip (principal); M25.552 Pain in left hip; I12.9 Hypertensive chronic kidney disease with stage 1 through stage 4 chronic kidney disease, or unspecified chronic kidney disease; N18.4 Chronic kidney disease, stage 4 (severe); E78.5 Hyperlipidemia, unspecified

== ENCOUNTER → 2024-07-14 12:48 | Outpatient (BNVA) | payer OTHER, SELFPAY | PROVIDERS: PCP Internal Medicine; Visit Provider Internal Medicine | DX: Z13.89 Encounter for screening for other disorder (principal) ==

== ENCOUNTER → 2024-07-29 11:26 | Outpatient (BNVA) | payer OTHER, SELFPAY | PROVIDERS: PCP Internal Medicine; Referring Provider Internal Medicine; Visit Provider Internal Medicine Critical Care Medicine ==

== ENCOUNTER 2024-09-19 10:50 | Outpatient (AMB) | payer OTHER, SELFPAY ==
[2024-09-19 10:56] VITALS: BP 138/80; PULSE 77; O2SAT 98; BMI 28.5
--- NOTE | 2024-09-19 10:56 | HO.NEPHOV_ITS ---
Vital Signs 09/19/24 10:56 Height 5 ft 10.8 in Weight 203 lb BMI 28.5 BP 138/80 Blood Pressure Location Lt brachial Position Sitting Pulse 77 Pulse Source Pulse Oximeter Pulse Oximetry (%) 98 Oxygen Delivery Method Room Air Intake Visit Reasons: INP: StatCKD, STG 4 - LVM Intake Note: Patient has a colonoscopy on 09/26/24 he will be taking IC laxative EC 5mg and IC gavilyte-g Solution. Patient in the process fro kidney transplant at [facility]. Outdoor Emergency Care Technician Required: No Accompanied by: Family/Other Allergies No Known Allergies Allergy (Verified 09/19/24 10:58) Medication List - Last Reconciled 09/19/24 by Raad Yee MD allopurinol 100 mg PO DAILY aspirin 81 mg PO DAILY atorvastatin (Lipitor) 20 mg PO DAILY bisoprolol fumarate 7.5 mg (1.5 x 5 mg) PO DAILY bisoprolol fumarate 10 mg PO DAILY calcitriol 0.5 mcg PO DAILY coenzyme Q10 (Ultra CoQ10) PO sodium bicarbonate 650 mg PO TID PRN Do you need a note to return to daycare/school/sports/work: No HPI Comments Details: 59-year-old male presenting with chronic kidney disease. The condition was identified following a blood test that showed kidney function at 13%. A biopsy was performed, but the root cause remains undetermined, with the condition described as chronic. He was seen by a Data Communications Software Consultant few months ago and has decided to switch to my care The patient also has a history of essential hypertension, which has been present for approximately two to three years. He has undergone extensive serological workup which were essentially negative History of chronic right-sided pain. He does not take NSAIDs regularly. [facility] Medical History Tachycardia Hypertension Osteoarthritis of right hip FHx: colon cancer Hypertensive kidney disease, stage IV Hyperlipidemia Surgical History No pertinent past surgical history Family History Father Colon cancer, Onset Age: 77 Mother Breast CA, Onset Age: 66 Social History Household Members Other:: , Housing: House Patient Tobacco Use Status: Never used Tobacco e-Cigarette/Vaping Use: Never Used service: No Current occupational status: employed Cognitive needs: No Hearing needs: No Vision needs: Yes Review of Systems Const Denies fever(s) and Denies weight loss Card Denies chest pain Resp Denies cough and Denies hemoptysis GI Denies abdominal pain, Denies diarrhea and Denies nausea Musc Denies back pain Neuro Denies focal weakness Physical Exam Vital Signs: Last Vital Signs Pulse 77 09/19/24 10:56 BP 138/80 09/19/24 10:56 Pulse Ox 98 09/19/24 10:56 Oxygen Delivery Method Room Air 09/19/24 10:56 BMI result Body Mass Index 28.5 Const General: comfortable Nutritional Appearance: well nourished Orientation/consciousness: patient oriented x3 HEENT Head: No normal to inspection Mouth: moist mucous membranes Neck Neck: Yes supple and Yes no JVD Resp Auscultation: clear to auscultation bilaterally, no rales and rub present Cardio Jugular venous distension: no JVD Palpation: no palpable S3 and no palpable S4 Heart sounds: no rubs GI Palpation (GI): Soft to palpation and nontender Percussion: No Fluid wave present General: Yes no CVA tenderness Back/Spine/Pelvis Back: no CVA tenderness Skin General skin exam: no rashes or lesions noted Neuro General: patient oriented x3 Extrem General: Yes no pedal edema and No clubbing Results Reviewed Nephrology Results: Hgb, (14.0-18.0) 11.7 g/dl L 06/02/24 WBC, (4.8-10.8) 12.4 X10*3/uL H 06/02/24 Plt Count, (160-400) 337 X10*3/uL 06/02/24 Sodium, (135-145) 142 mmol/L 06/02/24 Potassium, (3.3-5.1) 4.6 mmol/L 06/02/24 Chloride, (96-108) 109 mmol/L H 06/02/24 Carbon Dioxide, (22-29) 17 mmol/L L 06/02/24 BUN, (9-16) 99 mg/dL H 06/02/24 Creatinine, (0.5-1.4) 4.60 mg/dL H* 06/02/24 Calcium, (8.4-10.2) 10.0 mg/dL 06/02/24 Urine Protein, (Neg-Trace) 100 (2+) mg/dL H 06/02/24 Assessment & Plan Assessment & Plan (1) Hypertensive kidney disease, stage IV: Code(s): I12.9 - Hypertensive chronic kidney disease with stage 1 through stage 4 chronic kidney disease, or unspecified chronic kidney disease; N18.4 - Chronic kidney disease, stage 4 (severe) Category: Medical (2) Hypertension: Code(s): I10 - Essential (primary) hypertension Category: Medical Plan Pleasant 59-year-old man with stage 5 CKD. In May 2024 serum creatinine was 4.6 with a EGFR of 13 mL/minute. At present he has no signs or symptoms of uremia. Fluid status is acceptable. Exact etiology needs to be determined. Thus far serological testing has been negative. He underwent a kidney biopsy and I will track down the results. Goal at this point is to slow the progression disease. Continue to avoid nephrotoxic agents. Maintain adequate hydration. Stay on low-sodium diet. He is currently being evaluated for renal transplantation. He also needs to be prepared for renal replacement therapy which may be required prior to the transplantation. He returned to the clinic once the baseline workup is completed I will keep you updated. Orders: Orders Comprehensive Met. Panel Today I10 - Essential (primary) hypertension, I12.9 - Hypertensive chronic kidney disease with stage 1 through stage 4 chronic kidney disease, or unspecified chronic kidney disease, N18.4 - Chronic kidney disease, stage 4 (severe) Creatinine Urine Today I10 - Essential (primary) hypertension, I12.9 - Hypertensive chronic kidney disease with stage 1 through stage 4 chronic kidney disease, or unspecified chronic kidney disease, N18.4 - Chronic kidney disease, stage 4 (severe) Parathyroid Hormone Intact Today I10 - Essential (primary) hypertension, I12.9 - Hypertensive chronic kidney disease with stage 1 through stage 4 chronic kidney disease, or unspecified chronic kidney disease, N18.4 - Chronic kidney disease, stage 4 (severe) Total Protein Urine Random Today I10 - Essential (primary) hypertension, I12.9 - Hypertensive chronic kidney disease with stage 1 through stage 4 chronic kidney disease, or unspecified chronic kidney disease, N18.4 - Chronic kidney disease, stage 4 (severe) Complete Blood Count no Diff Today I10 - Essential (primary) hypertension, I12.9 - Hypertensive chronic kidney disease with stage 1 through stage 4 chronic kidney disease, or unspecified chronic kidney disease, N18.4 - Chronic kidney disease, stage 4 (severe) UA and rflx microscopic Today I10 - Essential (primary) hypertension, I12.9 - Hypertensive chronic kidney disease with stage 1 through stage 4 chronic kidney disease, or unspecified chronic kidney disease, N18.4 - Chronic kidney disease, stage 4 (severe) Uric Acid Today I10 - Essential (primary) hypertension, I12.9 - Hypertensive chronic kidney disease with stage 1 through stage 4 chronic kidney disease, or unspecified chronic kidney disease, N18.4 - Chronic kidney disease, stage 4 (severe) Coding Level of Care Code New Pt Level 4 (93599) Diagnoses Hypertensive kidney disease, stage IV I12.9; N18.4 Hypertension I10
--- OUTSIDE RECORDS SUMMARY | 2024-09-19 11:47 | XMS_ITS | Clinical Summary ---
Author Organization [facility] Address [address] [facility] [address] [place] [address] Phone Care Team Providers Care T[employer] Manager Name Role Phone Talya Harrington MD Primary Care Provider [phone] Allergies No known active allergies Medications aspirin (ST SANDRA) 81 MG EC tablet Take 81 mg by mouth in the morning. Active atorvastatin (LIPITOR) 20 MG tablet Take 20 mg by mouth every night Active bisoprolol (ZEBETA) 5 MG tablet TAKE 7.5 MG (1.5 X 5 MG) ORALLY DAILY Active calcitriol (ROCALTROL) 0.5 MCG capsule Take 0.5 mcg by mouth in the morning. 5 Active LORazepam (ATIVAN) 0.5 MG tablet Take 0.5 mg by mouth Active cholecalciferol (VITAMIN D-3) 250 MCG (46817 UT) capsule Take 1 capsule (10,000 Units total) by mouth every 7 (seven) days 12 capsule 5 10/15/19 25 Active sodium bicarbonate 650 MG tablet Take 1 tablet (650 mg total) by mouth in the morning and 1 tablet (650 mg total) in the evening and 1 tablet (650 mg total) before bedtime. 90 tablet 11 5 07/17/19 26 Active allopurinol (ZYLOPRIM) 100 MG tablet Take 100 mg by mouth in the morning. 5 09/05/19 25 Hospital, Clinic, or Other Facility Administered Medication Ordered Dose Route Frequency Start Date End Date Status iron sucrose (VENOFER) injection 250 mgIndications:Anemia in chronic kidney disease,Stage 5 chronic kidney disease (HCC) 250 mg IV Weekly 07/28/2024 08/25/2024 Ende d Active Problems Problem Noted Date Diagnosed Date Renal failure syndrome 06/03/2024 Encounters Date Type Department Care Team Description 08/12/2024 Office Communication [facility] [address] [address] Joss, Dariana 07/28/2024 Telephone [facility] [address] [address] Ed Romero MD 07/28/2024 Office Communication [facility] [address] [address] [facility] 07/21/2024 Telephone [facility] [address] [address] Marlene Anderson MA 07/16/2024 Telephone [facility] [address] [address] Ed Romero MD 07/16/2024 Telephone [facility] [address] [address] Ed Romero MD 07/04/2024 11:00 AM EDT Office Visit [facility] [address] [address] Ed Romero MD Stage 5 chronic kidney disease (HCC) (Primary Dx); ANCA associated vasculitis (HCC) 07/04/2024 Telephone [facility] [address] [address] Marlene Anderson MA 06/22/2024 Office Communication [facility] [address] [place] [phone] Manuel Nicole MD 06/21/2024 Telephone [facility] [address] [facility] [address] [place] [phone] Argelia Mack from Last 3 Months Social History Tobacco Use Types Packs/Day Years Used Date Smoking Tobacco: Never Assessed Sex and Gender Information Value Date Recorded Sex Assigned at Not on file Legal Sex Male 3:43 PM EDT Gender Identity Not on file Sexual Orientation Not on file Last Filed Vital Signs Vital Sign Reading Time Taken Comments Blood Pressure 154/85 07/04/2024 11:08 AM EDT Pulse 54 07/04/2024 11:08 AM EDT Temperature - - Respiratory Rate - - Oxygen Saturation 99% 07/04/2024 11:08 AM EDT Inhaled Oxygen Concentration - - Weight 92.8 kg (204 lb 9.6 oz) 07/04/2024 11:08 AM EDT Height - - Body Mass Index - - Plan of Treatment Health Maintenance Due Date Last Done Comments Hepatitis B Vaccine (1 of 3 - 19+ 3-dose series) 08/02 Pneumococcal Vaccine: 50+ Years (1 of 2 - PCV) 987 Colorectal Cancer Screening: Annual FOBT 08/02/2016 Colorectal Cancer Screening: Colonoscopy 08/02/2016 Colorectal Cancer Screening: Sigmoidoscopy 08/02/2016 Influenza Vaccine (#1) 2024 Procedures Procedure Name Priority Date/Time Associated Diagnosis Comments URINALYSIS RFX MICROSCOPIC Routine 07/04/2024 12:43 PM EDT URINE ALBUMIN / CREATININE RATIO Routine 07/04/2024 12:43 PM EDT Stage 5 chronic kidney disease (HCC) ANCA associated vasculitis (HCC) PROTEIN / CREATININE RATIO, URINE Routine 07/04/2024 12:43 PM EDT Stage 5 chronic kidney disease (HCC) ANCA associated vasculitis (HCC) ANTI-NEUTROPHILIC CYTOPLASMIC ANTIBODY Routine 07/04/2024 12:34 PM EDT INTERFERON GAMMA FOR TB, WHOLE BLOOD Routine 07/04/2024 12:34 PM EDT INTERFERON GAMMA FOR TB, WHOLE BLOOD Routine 07/04/2024 12:34 PM EDT CBC WITH AUTO DIFFERENTIAL Routine 07/04/2024 12:34 PM EDT FERRITIN Routine 07/04/2024 12:34 PM EDT Stage 5 chronic kidney disease (HCC) ANCA associated vasculitis (HCC) IRON PANEL (FE, TIBC, TSAT) Routine 07/04/2024 12:34 PM EDT Stage 5 chronic kidney disease (HCC) ANCA associated vasculitis (HCC) PHOSPHATE ( PHOSPHORUS) Routine 07/04/2024 12:34 PM EDT Stage 5 chronic kidney disease (HCC) ANCA associated vasculitis (HCC) MAGNESIUM Routine 07/04/2024 12:34 PM EDT Stage 5 chronic kidney disease (HCC) ANCA associated vasculitis (HCC) PTH, INTACT Routine 07/04/2024 12:34 PM EDT Stage 5 chronic kidney disease (HCC) ANCA associated vasculitis (HCC) VITAMIN D 25 HYDROXY Routine 07/04/2024 12:34 PM EDT Stage 5 chronic kidney disease (HCC) ANCA associated vasculitis (HCC) BASIC METABOLIC PANEL Routine 07/04/2024 12:34 PM EDT Stage 5 chronic kidney disease (HCC) ANCA associated vasculitis (HCC) from Last 3 Months Results * (ABNORMAL) Protein, Total, Random Urine w/Creatinine (Protein/Creat Ratio) (07/04/2024 12:43 PM EDT) Protein, Ur 77 mg/dL [facility] Urine Protein/Creati nine Ratio 0.93(H) <=0.20 mg/mg creat [facility] Creatinine, Urine 83.0 mg/dL [facility] Urine specimen (specimen) Urine specimen obtained by clean catch procedure / Unknown 07/04/2024 12:43 PM EDT 07/04/2024 12:52 PM EDT us Ed Romero MD LAB URINE ORDERABLES Final Result Performing Organization Address [facility] de Phone Number [facility] [address] [place] [address] * (ABNORMAL) Urine Albumin / Creatinine Ratio (07/04/2024 12:43 PM EDT) Creatinine, Urine 83.0 mg/dL [facility] Microalbumin Urine Random 518.0(H) 0.0 - 29.0 mg/L [facility] Microalbumin/Cre atinine Ratio 624(H) <30 mg/g creat [facility] Urine specimen (specimen) Urine specimen obtained by clean catch procedure / Unknown 07/04/2024 12:43 PM EDT 07/04/2024 12:52 PM EDT us Ed Romero MD LAB URINE ORDERABLES Final Result Performing Organization Address [facility] de Phone Number [facility] [address] [place] [address] * (ABNORMAL) Urinalysis Reflex Microscopic (07/04/2024 12:43 PM EDT) Specific [place] 1.010 1.003 - 1.030 [facility] pH Urine 5.0 5.0 - 8.0 pH [facility] LEUKOCYTES, URINE Negative Negative [facility] Nitrite, Urine Negative Negative [facility] Protein, Urine 100(A) <=Trace mg/dL [facility] Glucose Urine Negative Negative mg/dL [facility] Ketones, Urine Negative Negative mg/dL [facility] Urobilinogen Urine 0.2 0.2 - 1.0 mg/dL [facility] Bilirubin Urine Negative Negative [facility] Blood Urine Trace(A) Negative [facility] RBC, Urine 4.8(H) 0 - 4 /HPF [facility] WBC, Urine 1.3 0 - 4 /HPF [facility] Squamous Epithelial, Urine 8 0 - 60 /LPF [facility] Bacteria, Urine Negative Negative /HPF [facility] Hyaline Casts, UA 0.4 0 - 3 /LPF [facility] 07/04/2024 12:4 3 PM EDT 07/04/2024 12:52 PM EDT us Ed Romero MD LAB URINE ORDERABLES Final Result Performing Organization Address City/[facility]/ZIP Co de Phone Number [facility] [address] [place] [address] * Interferon Gamma for TB, Whole Blood (07/04/2024 12:34 PM EDT) Only the most recent of2 resultswithin the time period is included. Quantiferon Interpretation Negative Negative [facility] 07/04/2024 12:3 4 PM EDT 07/04/2024 12:51 PM EDT Ed Romero MD LAB BLOOD ORDERABLES Final Result Performing Organization Address City/[facility]/ZIP Co de Phone Number [facility] [address] [place] [address] * (ABNORMAL) CBC auto differential (07/04/2024 12:34 PM EDT) Pathologist [facility] WBC 11.2(H) 4.8 - 10.8 K/[facility] RBC 3.90(L) 4.50 - 5.50 M/[facility] Hgb 10.9(L) 13.5 - 17.5 g/dL [facility] Hematocrit 34.0(L) 42.0 - 54.0 % [facility] MCV 87.9 79.0 - 98.0 FL [facility] MCH 28.2 27.0 - 32.0 pcg [facility] MCHC 32.1 32.0 - 37.0 g/dL [facility] RDW 15.8(H) 11.0 - 15.0 % [facility] Platelets 257 130 - 400 K/[facility] MPV 12.1(H) 7.0 - 11.0 FL [facility] nRBC Count 0.0 <1.0 % [facility] NRBC Absolute 0.00 <0.10 K/[facility] Bands Relative 69.3 % [facility] Lymphocyte Realative Percent 21.6 % [facility] Monocyte Relative Percent 5.7 % [facility] Eosinophil Relative Percent 2.1 % [facility] Basophils Relative Diff 0.9 % [facility] Immature Granulocytes 0.4 % [facility] Neutrophils Absolute 7.76(H) 1.50 - 7.00 K/[facility] Lymphocytes Absolute 2.42 1.00 - 5.00 K/[facility] Monocytes Absolute 0.64 0.20 - 1.00 K/[facility] Eosinophil Absolute 0.23 0.00 - 0.50 K/[facility] Basophil ABS 0.10 0.00 - 0.20 K/[facility] Immature Grans (Absolute) 0.05(H) 0.00 - 0.03 [facility] 07/04/2024 12:3 4 PM EDT 07/04/2024 12:52 PM EDT Ed Romero MD LAB BLOOD ORDERABLES Final Result Performing Organization Address City/[facility]/ZIP Co de Phone Number [facility] [address] [place] [address] * Iron Panel (Fe, TIBC, TSAT) (07/04/2024 12:34 PM EDT) Iron 65 50 - 160 mcg/dL [facility] TIBC 326 250 - 450 mcg/dL [facility] Iron Saturation (TSat) 20 20 - 50 % [facility] Blood specimen (specimen) Venous blood / Unknown 07/04/2024 12:34 PM EDT 07/04/2024 12:51 PM EDT us Ed Romero MD LAB BLOOD ORDERABLES Final Result Performing Organization Address City/[facility]/ZIP Co de Phone Number [facility] [address] [place] [address] * (ABNORMAL) Vitamin D 25 Hydroxy (07/04/2024 12:34 PM EDT) Vitamin D, 25-OH, Total 13.7(L) 30.0 - 80.0 ng/mL [facility] Blood specimen (specimen) Venous blood / Unknown 07/04/2024 12:34 PM EDT 07/04/2024 12:51 PM EDT Ed Romero MD LAB BLOOD ORDERABLES Final Result Performing Organization Address [facility] Co de Phone Number [facility] [address] [place] [address] * (ABNORMAL) Anti-neutrophilic cytoplasmic antibody (07/04/2024 12:34 PM EDT) [facility] Myeloperoxidase Ab Negative Negative M [facility] Myeloperoxidase Quantitative 1 <=20 units [facility] Proteinase 3 Ab Positive(A) Negative [facility] PR3 Ab 71(H) <=20 units [facility] 07/04/2024 12:3 4 PM EDT 07/04/2024 12:51 PM EDT Ed Romero MD LAB BLOOD ORDERABLES Final Result Performing Organization Address [facility] de Phone Number [facility] [address] [place] [address] * (ABNORMAL) Phosphorus (07/04/2024 12:34 PM EDT) [facility] Phosphorus 5.3(H) 2.5 - 4.5 mg/dL [facility] Blood specimen (specimen) Venous blood / Unknown 07/04/2024 12:34 PM EDT 07/04/2024 12:51 PM EDT Ed Romero MD LAB BLOOD ORDERABLES Final Result Performing Organization Address [facility] Co de Phone Number [facility] [address] [place] [address] * (ABNORMAL) PTH, Intact (07/04/2024 12:34 PM EDT) [facility] PTH 366.0(H) 18.5 - 88.0 pcg/mL [facility] Blood specimen (specimen) Venous blood / Unknown 07/04/2024 12:34 PM EDT 07/04/2024 12:51 PM EDT us Ed Romero MD LAB BLOOD ORDERABLES Final Result Performing Organization Address City/[facility]/ZIP Co de Phone Number [facility] [address] [place] [address] * Magnesium (07/04/2024 12:34 PM EDT) Pathologist [facility] Magnesium 2.2 1.9 - 2.6 mg/dL [facility] Blood specimen (specimen) Venous blood / Unknown 07/04/2024 12:34 PM EDT 07/04/2024 12:51 PM EDT us Ed Romero MD LAB BLOOD ORDERABLES Final Result Performing Organization Address [facility]/ZIP Co de Phone Number [facility] [address] [place] [address] * Ferritin (07/04/2024 12:34 PM EDT) Pathologist [facility] Ferritin 130 26 - 388 ng/mL [facility] Blood specimen (specimen) Venous blood / Unknown 07/04/2024 12:34 PM EDT 07/04/2024 12:51 PM EDT us Ed Romero MD LAB BLOOD ORDERABLES Final Result Performing Organization Address City/[facility]/ZIP Co de Phone Number [facility] [address] [place] [address] * (ABNORMAL) Basic Metabolic Panel (07/04/2024 12:34 PM EDT) Pathologist [facility] Sodium 140 133 - 145 mmol/L [facility] Potassium 4.5 3.5 - 5.5 mmol/L [facility] Chloride 109 96 - 110 mmol/L [facility] Bicarbonate (CO2) 13(LL) 21 - 32 mmol/L [facility] Comment:Results verified by repeat testing Anion Gap 18(H) 3 - 11 [facility] Glucose 115(H) 70 - 100 mg/dL [facility] BUN 102(H) 5 - 25 mg/dL [facility] Creatinine Serum 5.26(H) 0.70 - 1.30 mg/dL [facility] eGFR 12(L) >=60 mL/min/1. 73m2 [facility] Comment:Calculation based on the Chronic Kidney Disease Epidemiology Collaboration (CKD-EPI) equation refit without adjustment for race. BUN/Creatinine Ratio 19.4 [facility] Calcium 9.5 8.5 - 10.5 mg/dL [facility] Blood specimen (specimen) Venous blood / Unknown 07/04/2024 12:34 PM EDT 07/04/2024 12:51 PM EDT us Ed Romero MD LAB BLOOD ORDERABLES Final Result JENNI [facility] [address] [place] [address] from Last 3 Months Insurance [facility] Medicaid Care Teams T[employer] Manager Relationship Specialty Start Date End Date Talya Harrington MD [address] [place], [place] [id number] PCP - General Internal Medicine 06/07/24
--- OUTSIDE RECORDS SUMMARY | 2024-09-19 11:47 | XMS_ITS | Clinical Summary ---
Author Organization [facility] Address [address] [facility] [address] [place] [id number] Phone Care Team Providers Care Plate Grinder Name Role Phone Talya Harrington MD Primary Care Provider [phone] Self-Referred, Patient Unavailable Unavailab le Medications allopurinol (ZYLOPRIM) 100 MG tablet Take 100 mg by mouth daily. 5 Active aspirin 81 MG EC tablet Take 81 mg by mouth daily. Active atorvastatin (LIPITOR) 20 MG tablet Take 20 mg by mouth daily. Active bisoprolol (ZEBETA) 10 MG tablet Take 1 tablet by mouth every morning. 5 Active cholecalciferol, vitamin D3, (VITAMIN D3) 250 mcg (10,000 unit) capsule Take 10,000 Units by mouth once a week. 5 10/15/19 25 Active sodium bicarbonate 650 mg tablet Take 650 mg by mouth. Take 1 tablet (650 mg total) by mouth in the morning and 1 tablet (650 mg total) in the evening and 1 tablet (650 mg total) before bedtime. 5 07/17/19 26 Active calcitriol (ROCALTROL) 0.5 MCG capsule Take 0.5 mcg by mouth daily. 5 09/06/19 25 iron sucrose (VENOFER) 50 mg iron/2.5 mL Soln Inject 250 mg into the vein. 5 08/26/19 25 Encounters Date Type Department Care Team Description 09/18/2024 1:19 PM EDT - 09/18/2024 11:59 PM EDT Hospital Encounter [facility] MR Imaging, [place] [address] [place] [address] Kevin Rivera MD, MPH Arrived Discharge Disposition: Home or Self Care 09/18/2024 Ancillary Orders 08/22/2024 Telephone [facility] Urology [address] [address] Tatianna Benedict 08/18/2024 Procedure Pass [facility] MR Imaging, [place] [address] [place] [address] 08/18/2024 Orders Only [facility] Urology [address] [address] Britta Sterling PA-C Renal mass (Primary Dx) 08/08/2024 1:30 PM EDT Office Visit [facility], [facility] [place] [address] [facility], [address] [place] [address] Kevin Rivera MD, MPH Renal mass (Primary Dx); Chronic kidney disease, unspecified CKD stage 08/08/2024 Telephone [facility] Urology [address] [place] [address] Tatianna Benedict 07/25/2024 Ancillary Orders [facility] OUTSIDE IMG [address] [place] [id number] Kevin Rivera MD, MPH 07/25/2024 Ancillary Orders [facility] OUT[facility] IM[facility] [address] [place] [address] Kevin Rivera MD, MPH 07/25/2024 Ancillary Orders [facility] [address] [place] [phone] Kevin Rivera MD, MPH 07/25/2024 Ancillary Orders [facility] OUTSIDE IMG [address] [place] [id number] Kevin Rivera MD, MPH from Last 3 Months Social History Tobacco Use Types Packs/Day Years Used Date Smoking Tobacco: Never Assessed Child or Family Care Answer Date Record ed Do you have problems with on e of the following making it difficult for you to work, study, or receive health care? No 08/05/2024 Education Answer Date Recorded Are you interested in help w ith more adult education (for example, completing high school, GED, job training, learning the Syriac language, technical skills, or developing parenting skills)? No 08/05/2024 Are you concerned about learning? Not on file 08/05/2024 No 08/05/2024 Yes 08/05/2024 Food Answer Date Recorded Within the past 6 months we worried whether our food would run out before we got money to buy more. Never True 08/05/2024 Within the past 6 months the food we bought just didn't last and we didn't have enough money to get more. Never True Residential Stability Answer Date Recor ded What is your housing situation today? I have manda sing 08/05/2024 How many times have you move d in the past 12 months? Zero (I did not move) 08/05/2024 Paying for Meds Answer Date Recorded Do you have trouble paying for medicines? No 08/05/2024 Paying Utility Bills Answer Date Record ed Do you have trouble paying your heating or elect ricity bill? No 08/05/2024 Transportation Answer Date Recorded Has the lack of transportati on kept you from medical appointments or from getting medications? No 08/05/2024 Digital Access Answer Date Recorded No 07/21/2024 No 07/21/2024 Reliable internet access at home? Not on file 07/21/2024 Device with a working camera? Not on file Sex and Gender Information Value Date Recorded Sex Assigned at Male 07/21/2024 12:27 PM EDT Legal Sex Male 4:13 PM EDT Gender Identity Male 07/21/2024 12:27 PM EDT Sexual Orientation Straight 07/21/2024 12 :27 PM EDT Last Filed Vital Signs Vital Sign Reading Time Taken Comments Blood Pressure - - Pulse 90 08/08/2024 1:11 PM EDT Temperature 36.8 C (98.2 F) 08/08/2024 1:11 PM EDT Respiratory Rate 18 08/08/2024 1:11 PM EDT Oxygen Saturation 99% 08/08/2024 1:11 PM EDT Inhaled Oxygen Concentration - - Weight 90.7 kg (199 lb 15.3 oz) 09/18/2024 1:47 PM EDT Height 174.8 cm (5' 8.82 ) 09/18/2024 1:47 PM ED T Body Mass Index 29.68 09/18/2024 1:47 PM EDT Plan of Treatment Upcoming Encounters Date Type Department Care Team ([facility] st Contact Info) Description 09/20/2024 1:50 PM EDT Office Visit [facility] Urology [address] [address] Kevin Rivera MD, MPH [address] [address] [email or web address] Health Maintenance Due Date Last Done Comments Adult Td,Tdap Booster 1967 LIPID PANEL 1967 DEPRESSION SCREENING 1979 SMOKING Hx and SMOKELESS TOBACCO SCREENING 08/02/1980 HEPATITIS C SCREENING 08/02/1985 HIV ONE-TIME SCREENING (18-6 5 YEARS) 08/02/1985 SCREENING FOR DIABETES 08/02/2002 COLOGUARD 08/02/2012 COLONOSCOPY 08/02/2012 COLORECTAL CANCER SCREENING 08/02/2012 FIT TEST 08/02/2012 FOBT 08/02/2012 SIGMOIDOSCOPY 08/02/2012 VIRTUAL COLONOSCOPY 08/02/2012 PNEUMOCOCCAL VACCINES (50+ years) (1 of 1 - PCV) 08/02/2017 ZOSTER VACCINES (1 of 2) 08/02/2017 COVID-19 VACCINE (3 - 2023-2 5 season) 2023 06/07/2020, 05/17/2020 HEPATITIS A VACCINES Aged Out No long er eligible based on patient's age to complete this topic HIB VACCINES Aged Out No longer eligi ble based on patient's age to complete this topic MENINGOCOCCAL VACCINES (ACWY) Aged Out No longer eligible based on patient's age to complete this topic MENINGOCOCCAL VACCINES (B) Aged Out N o longer eligible based on patient's age to complete this topic Medical Devices Not on file Procedures Procedure Name Priority Date/Time Associated Diagnosis Comments MRI ABDOMEN (KIDNEYS) WITHOUT CONTRAST Routine 09/18/2024 2:40 PM EDT Renal mass from Last 3 Months Results * MRI ABDOMEN (KIDNEYS) WITHOUT CONTRAST (09/18/2024 2:40 PM EDT) Anatomical Region Laterality Modality Abdomen Magnetic Resonan ce 09/19/2024 8:06 AM EDT Impressions 09/19/2024 10:36 AM EDT 1. No definite solid renal mass, within the limitation of noncontrast study. 2. Bilateral subcentimeter renal cysts including a likely hemorrhagic/proteinaceous cyst in the left lower pole. ATTESTATION: Tami Jarrett, as teaching physician have reviewed the images, if any, for this patient's exam, and if necessary, have edited the report originally created by Farida Rice. Narrative 09/19/2024 10:36 AM EDT MRI ABDOMEN (KIDNEYS) WITHOUT CONTRAST Referring clinician's provided indication for this examination in Epic: * Renal mass, renal insufficiency; had a renal biopsy that reported a possible renal mass Review of the Electronic Medical Record reveals an additional history of: Random renal biopsy on 06/13/2024 (left kidney, interpolar region) at outside hospital, with outside path revealing incidental papillary neoplasm. Evaluate for renal mass. TECHNIQUE: Multiplanar MR imaging of the abdomen was performed using T1, T2, fat saturated, and diffusion weighted techniques. No intravenous contrast material was administered. COMPARISON: CT ABDOMEN/PELVIS OUTSIDE (NO INTERPRETATION) ABSENCE OF INTRAVENOUS CONTRAST DECREASES SENSITIVITY FOR DETECTION OF FOCAL LESIONS AND VASCULAR PATHOLOGY. FINDINGS: Lower Chest: Normal. No effusions. Liver: Normal. No focal lesions. Biliary: Normal. No biliary ductal dilatation. Spleen: Normal. No splenomegaly or focal lesions. Pancreas: Normal. No masses or ductal dilatation. Adrenal Glands: Normal. No nodules. Kidneys/Ureters: Bilateral subcentimeter renal cysts, including a hemorrhagic/proteinaceous cyst in the left lower pole (8:67). No solid renal mass. Bowel: No dilatation or wall thickening. Peritoneum/Retroperitoneum: No masses or fluid. Lymph Nodes: No lymphadenopathy. Vessels: No abdominal aortic aneurysm. Bones/Soft Tissues: No focal marrow replacing lesions. Procedure Note Tami Driscoll MD - 09/19/2024 MRI ABDOMEN (KIDNEYS) WITHOUT CONTRAST Referring clinician's provided indication for this examination in Epic: *Renal mass, renal insufficiency; had a renal biopsy that reported apossible renal mass Review of the Electronic Medical Record reveals an additional history of:[facility] revealing incidental papillaryneoplasm. Evaluate for renal mass. TECHNIQUE: Multiplanar MR imaging of the abdomen was performed using T1,T2, fat saturated, and diffusion weighted techniques. No intravenouscontrast material was administered. COMPARISON: CT ABDOMEN/PELVIS OUTSIDE (NO INTERPRETATION) ABSENCE OF INTRAVENOUS CONTRAST DECREASES SENSITIVITY FOR DETECTION OFFOCAL LESIONS AND VASCULAR PATHOLOGY. FINDINGS: Lower Chest: Normal. No effusions. Liver: Normal. No focal lesions. Biliary: Normal. No biliary ductal dilatation. Spleen: Normal. No splenomegaly or focal lesions. Pancreas: Normal. No masses or ductal dilatation. Adrenal Glands: Normal. No nodules. Kidneys/Ureters: Bilateral subcentimeter renal cysts, including ahemorrhagic/proteinaceous cyst in the left lower pole (8:67). No solidrenal mass. Bowel: No dilatation or wall thickening. Peritoneum/Retroperitoneum: No masses or fluid. Lymph Nodes: No lymphadenopathy. Vessels: No abdominal aortic aneurysm. Bones/Soft Tissues: No focal marrow replacing lesions. IMPRESSION: 1. No definite solid renal mass, within the limitation of noncontraststudy. 2. Bilateral subcentimeter renal cysts including a likelyhemorrhagic/proteinaceous cyst in the left lower pole. ATTESTATION: Tami Jarrett, as teaching physician have reviewedthe images, if any, for this patient's exam, and if necessary, have editedthe report originally created by Farida Rice. us Kevin Rivera MD, MPH IMG MR ABDOMEN Final R esult from Last 3 Months Insurance [facility] ACO [employer] ACO [facility] A[facility] Care Teams Plate Grinder Relationship Specialty Start Date End Date Talya Harrington MD [address] [place] [id number] PCP - General Internal Medicine 07/21/24 Self-Referred, Patient Referring Physician 07/21/24 Additional Source Comments The information contained in this document represents components of the legal health record. It is not the complete legal health record.[facility]
--- OUTSIDE RECORDS SUMMARY | 2024-09-19 11:47 | XMS_ITS | Clinical Summary ---
Author Organization [facility] Address [address] [place] [address] Phone Care Team Providers Care Head Of History Name Role Phone Talya Harrington MD Primary Care Provider [phone] Allergies No known active allergies Medications bisoprolol (ZEBETA) 5 mg tablet Take 1.5 tablets (7.5 mg total) by mouth 1 (one) time each day. 5 Active aspirin 81 mg EC tablet Take [...] (one) time each day. 30 capsule 2 5 Active atorvastatin (LIPITOR) 20 mg tablet Take 1 tablet (20 mg total) by mouth at bedtime. Active bisacodyL (DULCOLAX) 5 mg EC tablet Take 2 tablets by mouth right before beginning bowel prep. See instructions provided by the office 2 tablet 5 Active polyethylene glycol (Golytely) 236-22.74-6.74 -5.86 gram solution Take 4L by mouth once for one dose. May substitue any PEG. Starting at 2PM the day before your procedure drink 1 8oz glasses at your own pace until you complete half of the gallon. Finish 2nd half of the gallon at 8PM. 4000 mL 5 Active allopurinoL (ZYLOPRIM) 100 mg tablet Take 1 tablet (100 mg total) by mouth 1 (one) time each day. 30 each 2 5 09/05/19 25 Active Problems Problem Noted Date Diagnosed Date FARHEEN (acute kidney injury) ([facility] V24) 06/04/19 25 Renal failure, unspecified chronicity 06/03/2024 Social History Tobacco Use Types Packs/Day Years [...] Sign Reading Time Taken Comments Blood Pressure 125/84 06/13/2024 11:30 AM EDT Pulse 79 06/13/2024 11:30 AM EDT Temperature 37 C (98.6 F) 06/13/2024 7:29 AM EDT Respiratory Rate 16 06/13/2024 8:43 AM EDT Oxygen Saturation 97% 06/13/2024 11:30 AM EDT Inhaled Oxygen Concentration - - Weight 93.9 kg (207 lb) 06/13/2024 7:15 AM EDT Height 177.8 cm (5' 10 ) 06/13/2024 7:15 AM EDT Body Mass Index 29.7 06/13/2024 7:15 AM EDT Plan of Treatment Upcoming Encounters Date Type Department Care Team (Late st Contact Info) Description 09/26/2024 2:30 PM EDT Hospital Encounter [facility] [address] [place] [id number] Anne Tay MD [address] [facility] [address] [place] [address] Health Maintenance Due Date Last Done Comments DTaP,Tdap,and Td Vaccines (1 - Tdap) 08/02/1986 Hepatitis B Vaccines (1 of 3 - 19+ 3-dose series) 08/02/1986 Pneumococcal Vaccine: 50+ Years (1 of 1 - PCV) 08/02/2017 Zoster Vaccines (1 of 2) 08/02/2017 COVID-19 Vaccine (3 2023-2 5 season) 2023 06/07/2020, 05/17/2020 Depression Screening 02/17/2024 Cholesterol Screening (Lipid Panel) 06/03/2024 Colorectal Cancer Screening: Colonoscopy 06/03/2024 HIV Screening 06/03/2024 Social Influencers of Health Screening 06/03/2024 Influenza Vaccine (#1) 2024 Hepatitis C Screening Completed 06/04/2024 HIB [...] age to complete this topic Medical Devices Implanted Type Area Supply Chain Tech Device Identifier Shelf Expiration Date Model / Serial / Lot Sponge Surgifoam Gel 12 X 7mm - [id number] - [id number] Implanted:Qty: 1 on 06/13/2024 by Chuyita Munoz MD at [facility] Hemostasis Left: Kidney [employer] [id number] 01/12/2028 1972 / [id number] / Procedures Procedure Name Priority Date/Time Associated Diagnosis Comments URINALYSIS WITH REFLEX MICROSCOPIC Routine 07/04/2024 12:43 PM EDT Chronic kidney disease, stage V (CMS/HCC V24, CMS/HCC V28) ANCA-associated vasculitis (CMS/HCC V24, CMS/HCC V28) MICROALBUMIN CREATININE URINE RATIO Routine 07/04/2024 12:43 PM EDT Chronic kidney disease, stage V (CMS/HCC V24, CMS/HCC V28) ANCA-associated vasculitis (CMS/HCC V24, CMS/HCC V28) PROTEIN AND CREATININE WITH RATIO, URINE Routine 07/04/2024 12:43 PM EDT Chronic kidney disease, stage V (CMS/HCC V24, CMS/HCC V28) ANCA-associated vasculitis (CMS/HCC V24, CMS/HCC V28) URINALYSIS WITH REFLEX MICROSCOPIC Routine 07/04/2024 12:43 PM EDT Chronic kidney disease, stage V (CMS/HCC V24, CMS/HCC V28) ANCA-associated vasculitis (CMS/HCC V24, CMS/HCC V28) INTERFERON GAMMA INTERPRETATION Routine 07/04/2024 12:34 PM EDT Chronic kidney disease, stage V (CMS/HCC V24, CMS/HCC V28) ANCA-associated vasculitis (CMS/HCC V24, CMS/HCC V28) INTERFERON GAMMA ANTIGEN 2 Routine 07/04/2024 12:34 PM EDT Chronic kidney disease, stage V (CMS/HCC V24, CMS/HCC V28) ANCA-associated vasculitis (CMS/HCC V24, CMS/HCC V28) INTERFERON GAMMA ANTIGEN 1 Routine 07/04/2024 12:34 PM EDT Chronic kidney disease, stage V (CMS/HCC V24, CMS/HCC V28) ANCA-associated vasculitis (CMS/HCC V24, CMS/HCC V28) INTERFERON GAMMA MITOGEN Routine 07/04/2024 12:34 PM EDT Chronic kidney disease, stage V (CMS/HCC V24, CMS/HCC V28) ANCA-associated vasculitis (CMS/HCC V24, CMS/HCC V28) INTERFERON GAMMA NIL Routine 07/04/2024 12:34 PM EDT Chronic kidney disease, stage V (CMS/HCC V24, CMS/HCC V28) ANCA-associated vasculitis (CMS/HCC V24, CMS/HCC V28) CBC WITH AUTO DIFFERENTIAL Routine 07/04/2024 12:34 PM EDT Chronic kidney disease, stage V (CMS/HCC V24, CMS/HCC V28) ANCA-associated vasculitis (CMS/HCC V24, CMS/HCC V28) ANTI-NEUTROPHILIC CYTOPLASMIC ANTIBODY Routine 07/04/2024 12:34 PM EDT Chronic kidney disease, stage V (CMS/HCC V24, CMS/HCC V28) ANCA-associated vasculitis (CMS/HCC V24, CMS/HCC V28) INTERFERON GAMMA FOR TB, QUALITATIVE Routine 07/04/2024 12:34 PM EDT Chronic kidney disease, stage V (CMS/HCC V24, CMS/HCC V28) ANCA-associated vasculitis (CMS/HCC V24, CMS/HCC V28) FERRITIN Routine 07/04/2024 12:34 PM EDT Chronic kidney disease, stage V (CMS/HCC V24, CMS/HCC V28) ANCA-associated vasculitis (CMS/HCC V24, CMS/HCC V28) IRON AND TIBC Routine 07/04/2024 12:34 PM EDT Chronic kidney disease, stage V (CMS/HCC V24, CMS/HCC V28) ANCA-associated vasculitis (CMS/HCC V24, CMS/HCC V28) PHOSPHORUS Routine 07/04/2024 12:34 PM EDT Chronic kidney disease, stage V (CMS/HCC V24, CMS/HCC V28) ANCA-associated vasculitis (CMS/HCC V24, CMS/HCC V28) MAGNESIUM Routine 07/04/2024 12:34 PM EDT Chronic kidney disease, stage V (CMS/HCC V24, CMS/HCC V28) ANCA-associated vasculitis (CMS/HCC V24, CMS/HCC V28) PARATHYROID HORMONE INTACT Routine 07/04/2024 12:34 PM EDT Chronic kidney disease, stage V (CMS/HCC V24, CMS/HCC V28) ANCA-associated vasculitis (CMS/HCC V24, CMS/HCC V28) VITAMIN D 25 HYDROXY Routine 07/04/2024 12:34 PM EDT Chronic kidney disease, stage V (CMS/HCC V24, CMS/HCC V28) ANCA-associated vasculitis (CMS/HCC V24, CMS/[facility] V28) BASIC METABOLIC PANEL Routine 07/04/2024 12:34 PM EDT Chronic kidney disease, stage V (CMS/HCC V24, CMS/HCC V28) ANCA-associated vasculitis (CMS/HCC V24, CMS/HCC V28) CBC AND DIFFERENTIAL Routine 07/04/2024 12:34 PM EDT Chronic kidney disease, stage V ([facility]/HCC V24, [facility] V28) ANCA-associated vasculitis (CMS/HCC V24, CMS/[facility] V28) HEPATITIS C ANTIBODY Routine 06/04/2024 6:33 AM EDT from Last 3 Months or Most Recently Relevant to Health Maintenance Results * (ABNORMAL) Urinalysis with reflex microscopic (07/04/2024 12:43 PM EDT) Specific [place] Urine 1.010 1.003 - 1.030 LAB URINALYSIS - AUTOMATED METHOD 07/04/2024 1:29 PM [facility] pH, Urine 5.0 5.0 - 8.0 pH LAB URINALYSIS - AUTOMATED METHOD 07/04/2024 1:29 PM [facility] Leukocytes, Urine Negative Negative LAB URINALYSIS - AUTOMATED METHOD 07/04/2024 1:29 PM [facility] Nitrite, Urine Negative Negative LAB URINALYSIS - AUTOMATED METHOD 07/04/2024 1:29 PM [facility] Protein, Urine 100(A) <=Trace mg/dL LAB URINALYSIS - AUTOMATED METHOD 07/04/2024 1:29 PM [facility] Glucose, Urine Negative Negative mg/dL LAB URINALYSIS - AUTOMATED METHOD 07/04/2024 1:29 PM [facility] Ketones, Urine Negative Negative mg/dL LAB URINALYSIS - AUTOMATED METHOD 07/04/2024 1:29 PM [facility] Urobilinogen, Urine 0.2 0.2 - 1.0 mg/dL LAB URINALYSIS - AUTOMATED METHOD 07/04/2024 1:29 PM EDT [facility] Bilirubin, Urine Negative Negative LAB URINALYSIS - AUTOMATED METHOD 07/04/2024 1:29 PM EDT [facility] Blood, Urine Trace(A) Negative LAB URINALYSIS - AUTOMATED METHOD 07/04/2024 1:29 PM EDT [facility] RBC, Urine 4.8(H) 0 - 4 /HPF LAB URINALYSIS - AUTOMATED METHOD 07/04/2024 1:29 PM EDT [facility] WBC, Urine 1.3 0 - 4 /HPF LAB URINALYSIS - [facility]OMATED [facility] Squamous Epithelial, Urine 8 0 - 60 /LPF LAB URINALYSIS - AUTOMATED METHOD 07/04/2024 1:29 PM EDT [facility] Bacteria, Urine Negative Negative /HPF LAB URINALYSIS - AUTOMATED METHOD 07[facility]04[facility]24 [facility] Hyaline Casts, Urine 0.4 0 - 3 /LPF LAB URINALYSIS - AUTOMATED METHOD 07/04/2024 1:29 PM [facility] Urine Urine specimen obtained by clean catch procedure / Unknown Non-blood Collection / Unknown 07/04/2024 12:43 PM EDT 07/04/2024 12:52 PM EDT us Ed Rmoero MD LAB URINE ORDERABLES Final Result [facility] [address] [place] [address], * (ABNORMAL) Protein and creatinine with ratio, urine (07/04/2024 12:43 PM EDT) Protein, Urine 77 mg/dL LAB CHEMISTRY METHOD 07/04/2024 2:41 PM EDT [facility] Prot/Creat, Ur 0.93(H) <=0.20 mg/mg creat LAB CHEMISTRY METHOD 07/04/2024 2:41 PM EDT [facility] Creatinine, Urine 83.0 mg/dL LAB CHEMISTRY METHOD 07/04/2024 2:41 PM EDT [facility] Urine Urine specimen obtained by clean catch procedure / Unknown Non-blood Collection / Unknown 07/04/2024 12:43 PM EDT 07/04/2024 12:52 PM EDT us Ed Romero MD LAB URINE ORDERABLES Final Result [facility] [address] [place] [address], [place] [phone] * (ABNORMAL) Microalbumin creatinine urine ratio (07/04/2024 12:43 PM EDT) Creatinine, Urine 83.0 mg/dL LAB CHEMISTRY METHOD 07/04/2024 3:28 PM EDT [facility] Microalb, Ur 518.0(H) 0.0 - 29.0 mg/L LAB CHEMISTRY METHOD 07/04/2024 3:28 PM EDT [facility] Microalb/Crea t Ratio 624(H) <30 mg/g creat LAB CHEMISTRY METHOD 07/04/2024 3:28 PM EDT [facility] Urine Urine specimen obtained by clean catch procedure / Unknown Non-blood Collection / Unknown 07/04/2024 12:43 PM EDT 07/04/2024 12:52 PM EDT us Ed Romero MD LAB URINE ORDERABLES Final Result [facility] [address] [place] [address], [place] [phone] * Interferon gamma interpretation (07/04/2024 12:34 PM EDT) [facility] Quantiferon Plus Interpretation Negative Negative LAB CHEMISTRY METHOD 07/05/2024 10:19 AM EDT [facility] Blood Venous blood specimen / Unknown Venipuncture / Unknown 07/04/2024 12:34 PM EDT 07/04/2024 12:51 PM EDT us Ed Romero MD LAB BLOOD ORDERABLES Final Result [facility] [address] [place] [address], [place] [phone] * Interferon gamma antigen 2 (07/04/2024 12:34 PM EDT) Blood Venous blood specimen / Unknown Venipuncture / Unknown 07/04/2024 12:34 PM EDT 07/04/2024 12:51 PM EDT us Ed Romero MD LAB BLOOD ORDERABLES Final Result [facility] [address] [place] [address], [place] [phone] * Inteferon gamma antigen 1 (07/04/2024 12:34 PM EDT) Blood Venous blood specimen / Unknown Venipuncture / Unknown 07/04/2024 12:34 PM EDT 07/04/2024 12:51 PM EDT us Ed Romero MD LAB BLOOD ORDERABLES Final Result [facility] [address] [place] [address], [place] [phone] * Interferon gamma mitogen (07/04/2024 12:34 PM EDT) Blood Venous blood specimen / Unknown Venipuncture / Unknown 07/04/2024 12:34 PM EDT 07/04/2024 12:51 PM EDT us Ed Romero MD LAB BLOOD ORDERABLES Final Result [facility] [address] [place] [address], [place] [phone] * Interferon gamma NIL (07/04/2024 12:34 PM EDT) Blood Venous blood specimen / Unknown Venipuncture / Unknown 07/04/2024 12:34 PM EDT 07/04/2024 12:51 PM EDT us Ed Romero MD LAB BLOOD ORDERABLES Final Result Performing Organization Address City/[facility]/ZIP Co de Phone Number [facility] [address] [place] [address], [place] [phone] * (ABNORMAL) CBC auto differential (07/04/2024 12:34 PM EDT) [facility] WBC 11.2(H) 4.8 - 10.8 K/mcL LAB HEMETOLOGY METHOD 07/04/2024 2:40 PM EDT [facility] RBC 3.90(L) 4.50 - 5.50 M/[facility] LAB HEMETOLOGY METHOD 07/04/2024 2:40 PM EDT [facility] Hemoglobin 10.9(L) 13.5 - 17.5 g/dL LAB HEMETOLOGY METHOD 07/04/2024 2:40 PM EDT [facility] Hematocrit 34.0(L) 42.0 - 54.0 % LAB HEMETOLOGY METHOD 07/04/2024 2:40 PM EDT [facility] MCV 87.9 79.0 - 98.0 FL LAB HEMETOLOGY METHOD 07/04/2024 2:40 PM EDT [facility] MCH 28.2 27.0 - 32.0 pcg LAB HEMETOLOGY METHOD 07/04/2024 2:40 PM EDT [facility] MCHC 32.1 32.0 - 37.0 g/dL LAB HEMETOLOGY METHOD 07/04/2024 2:40 PM EDT [facility] RDW 15.8(H) 11.0 - 15.0 % LAB HEMETOLOGY METHOD 07/04/2024 2:40 PM EDT [facility] Platelets 257 130 - 400 K/mcL LAB HEMETOLOGY METHOD 07/04/2024 2:40 PM EDT [facility] MPV 12.1(H) 7.0 - 11.0 FL LAB HEMETOLOGY METHOD 07/04/2024 2:40 PM EDT [facility] NRBC 0.0 <1.0 % LAB HEMETOLOGY METHOD 07/04/2024 2:40 PM EDT [facility] NRBC Absolute 0.00 <0.10 K/mcL LAB HEMETOLOGY METHOD 07/04/2024 2:40 PM EDT [facility] Neutrophils Relative 69.3 % LAB HEMETOLOGY METHOD 07/04/2024 2:40 PM EDT [facility] Lymphocytes Relative 21.6 % LAB HEMETOLOGY METHOD 07/04/2024 2:40 PM EDT [facility] Monocytes Relative 5.7 % LAB HEMETOLOGY METHOD 07/04/2024 2:40 PM EDT [facility] Eosinophils Relative 2.1 % LAB HEMETOLOGY METHOD 07/04/2024 2:40 PM EDT [facility] Basophils Relative 0.9 % LAB HEMETOLOGY METHOD 07/04/2024 2:40 PM EDT [facility] Immature Granulocytes Relative 0.4 % LAB HEMETOLOGY METHOD 07/04/2024 2:40 PM EDT [facility] Neutrophils Absolute 7.76(H) 1.50 - 7.00 K/mcL LAB HEMETOLOGY METHOD 07/04/2024 2:40 PM EDT [facility] Lymphocytes Absolute 2.42 1.00 - 5.00 K/mcL LAB HEMETOLOGY METHOD 07/04/2024 2:40 PM EDT [facility] Monocytes Absolute 0.64 0.20 - 1.00 K/mcL LAB HEMETOLOGY METHOD 07/04/2024 2:40 PM EDT [facility] Eosinophils Absolute 0.23 0.00 - 0.50 K/[facility] LAB HEMETOLOGY METHOD 07/04/2024 2:40 PM EDT [facility] Basophils Absolute 0.10 0.00 - 0.20 K/mcL LAB HEMETOLOGY METHOD 07/04/2024 2:40 PM EDT [facility] Immature Granulocytes Absolute 0.05(H) 0.00 - 0.03 K/[facility] LAB HEMETOLOGY METHOD 07/04/2024 2:40 PM EDT [facility] Blood Venous blood specimen / Unknown Venipuncture / Unknown 07/04/2024 12:34 PM EDT 07/04/2024 12:52 PM EDT Ed Romero MD LAB BLOOD ORDERABLES Final Result [facility] [address] [place] [address], * Iron and TIBC (07/04/2024 12:34 PM EDT) Iron 65 50 - 160 mcg/dL LAB CHEMISTRY METHOD 07/04/2024 2:46 PM EDT [facility] TIBC 326 250 - 450 mcg/dL LAB CHEMISTRY METHOD 07/04/2024 2:46 PM EDT [facility] Iron Saturation 20 20 - 50 % LAB CHEMISTRY METHOD 07/04/2024 2:46 PM EDT [facility] Blood Venous blood specimen / Unknown Venipuncture / Unknown 07/04/2024 12:34 PM EDT 07/04/2024 12:51 PM EDT Ed Romero MD LAB BLOOD ORDERABLES Final Result Performing Organization Address [facility]/State/ZIP Co de Phone Number [facility] [address] [place] [address], [place] [phone] * (ABNORMAL) Vitamin D 25 hydroxy (07/04/2024 12:34 PM EDT) [facility] Vit D, 25-Hydroxy 13.7(L) 30.0 - 80.0 ng/mL LAB CHEMISTRY METHOD 07/04/2024 4:26 PM EDT [facility] Blood Venous blood specimen / Unknown Venipuncture / Unknown 07/04/2024 12:34 PM EDT 07/04/2024 12:51 PM EDT Ed Romero MD LAB BLOOD ORDERABLES Final Result Performing Organization Address [facility]/ZIP Co de Phone Number [facility] [address] [place] [address], [place] [phone] * (ABNORMAL) Anti-neutrophilic cytoplasmic antibody (07/04/2024 12:34 PM EDT) Pathologist [facility] Myeloperoxidase Ab Negative Negative LAB CHEMISTRY METHOD 07/06/2024 1:05 PM EDT [facility] Myeloperoxidase Ab, Quant 1 <=20 units LAB CHEMISTRY METHOD 07/06/2024 1:05 PM EDT [facility] Proteinase-3 Ab Positive(A ) Negative LAB CHEMISTRY METHOD 07/06/2024 1:05 PM EDT [facility] Proteinase-3 Ab Quant 71(H) <=20 units LAB CHEMISTRY METHOD 07/06/2024 1:05 PM EDT [facility] Blood Venous blood specimen / Unknown Venipuncture / Unknown 07/04/2024 12:34 PM EDT 07/04/2024 12:51 PM EDT us Ed Romero MD LAB BLOOD ORDERABLES Final Result Performing Organization Address [facility]/ZIP Co de Phone Number [facility] [address] [place] [address], [place] [phone] * (ABNORMAL) Phosphorus (07/04/2024 12:34 PM EDT) Phosphorus 5.3(H) 2.5 - 4.5 mg/dL LAB CHEMISTRY METHOD 07/04/2024 2:46 PM EDT [facility] Blood Venous blood specimen / Unknown Venipuncture / Unknown 07/04/2024 12:34 PM EDT 07/04/2024 12:51 PM EDT us Ed Romero MD LAB BLOOD ORDERABLES Final Result Performing Organization Address [facility]/ZIP Co de Phone Number [facility] [address] [place] [address], [place] [phone] * (ABNORMAL) Parathyroid hormone intact (07/04/2024 12:34 PM EDT) PTH 366.0(H) 18.5 - 88.0 pcg/mL LAB CHEMISTRY METHOD 07/04/2024 4:30 PM EDT [facility] Blood Venous blood specimen / Unknown Venipuncture / Unknown 07/04/2024 12:34 PM EDT 07/04/2024 12:51 PM EDT us Ed Romero MD LAB BLOOD ORDERABLES Final Result Performing Organization Address [facility]/ZIP Co de Phone Number [facility] [address] [place] [address], [place] [phone] * Magnesium (07/04/2024 12:34 PM EDT) [facility] Magnesium 2.2 1.9 - 2.6 mg/dL LAB CHEMISTRY METHOD 07/04/2024 2:21 PM EDT [facility] Blood Venous blood specimen / Unknown Venipuncture / Unknown 07/04/2024 12:34 PM EDT 07/04/2024 12:51 PM EDT us Ed Romero MD LAB BLOOD ORDERABLES Final Result Performing Organization Address [facility]/ZIP Co de Phone Number [facility] [address] [place] [address], [place] [phone] * Ferritin (07/04/2024 12:34 PM EDT) [facility] Ferritin 130 26 - 388 ng/mL LAB CHEMISTRY METHOD 07/04/2024 2:46 PM EDT [facility] Blood Venous blood specimen / Unknown Venipuncture / Unknown 07/04/2024 12:34 PM EDT 07/04/2024 12:51 PM EDT us Ed Romero MD LAB BLOOD ORDERABLES Final Result [facility] [address] [place] [address], [place] [phone] * (ABNORMAL) Basic metabolic panel (07/04/2024 12:34 PM EDT) [facility] Sodium 140 133 - 145 mmol/L LAB CHEMISTRY METHOD 07/04/2024 3:04 PM EDT [facility] Potassium 4.5 3.5 - 5.5 mmol/L LAB CHEMISTRY METHOD 07/04/2024 3:04 PM [facility] Chloride 109 96 - 110 mmol/L LAB CHEMISTRY METHOD 07/04/2024 3:04 PM [facility] CO2 13(LL) 21 - 32 mmol/L LAB CHEMISTRY METHOD 07/04/2024 3:04 PM [facility] Comment:Results verified by repeat testing Anion Gap 18(H) 3 - 11 LAB CHEMISTRY METHOD 07/04/2024 3:04 PM [facility] Glucose 115(H) 70 - 100 mg/dL LAB CHEMISTRY METHOD 07/04/2024 3:04 PM [facility] BUN 102(H) 5 - 25 mg/dL LAB CHEMISTRY METHOD 07/04/2024 3:04 PM [facility] Creatinine 5.26(H) 0.70 - 1.30 mg/dL LAB CHEMISTRY METHOD 07/04/2024 3:04 PM [facility] eGFR 12(L) >=60 mL/min/1. 73m2 LAB CHEMISTRY METHOD 07/04/2024 3:04 PM [facility] Comment:Calculation based on the Chronic Kidney Disease Epidemiology Collaboration (CKD-EPI) equation refit without adjustment for race. BUN/Creatinine Ratio 19.4 LAB CHEMISTRY METHOD 07/04/2024 3:04 PM [facility] Calcium 9.5 8.5 - 10.5 mg/dL LAB CHEMISTRY METHOD 07/04/2024 3:04 PM [facility] Blood Venous blood specimen / Unknown Venipuncture / Unknown 07/04/2024 12:34 PM EDT 07/04/2024 12:51 PM EDT us Ed Romero MD LAB BLOOD ORDERABLES Final Result [facility] [address] [place] [address], * Hepatitis C antibody (06/04/2024 6:33 AM EDT) Hepatitis C Antibody Negative Negative LAB CHEMISTRY METHOD 06/04/2024 9:32 AM EDT [facility] Blood Venous blood specimen / Unknown Venipuncture / Unknown 06/04/2024 6:33 AM EDT 06/04/2024 6:57 AM EDT us Manuel Nicole MD LAB BLOOD ORDERABLES Final Resu lt [facility] ([facility] [address] [place] [address], from Last 3 Months or Most Recently Relevant to Health Maintenance Insurance [facility] Advance Directives * Full Code - Default [...] currently active code status orders. Care Teams Head Of History Relationship Specialty Start Date End Date Talya Harrington MD [address] [place] [address] PCP - General Internal Medicine 06/03/24
== END 2024-09-19 11:25 | disposition home or self-care (01) ==
LOC: HO.HKA 10:51
PROVIDERS: PCP Internal Medicine; Visit Provider Internal Medicine Hypertension Specialist
DX: I12.9 Hypertensive chronic kidney disease with stage 1 through stage 4 chronic kidney disease, or unspecified chronic kidney disease (principal); N18.4 Chronic kidney disease, stage 4 (severe); I10 Essential (primary) hypertension
CPT/HCPCS: 99204

== ENCOUNTER → 2024-09-19 10:50 | Outpatient (BNVA) | payer OTHER, SELFPAY | PROVIDERS: PCP Internal Medicine; Visit Provider Internal Medicine Hypertension Specialist | DX: I12.9 Hypertensive chronic kidney disease with stage 1 through stage 4 chronic kidney disease, or unspecified chronic kidney disease (principal); N18.4 Chronic kidney disease, stage 4 (severe); I10 Essential (primary) hypertension | CPT/HCPCS: 99202 ==

== ENCOUNTER 2024-09-19 11:29 | Outpatient (REF) | payer OTHER, SELFPAY ==
[2024-09-19 13:06] LABS: Hematocrit 31.1 % (42.0-52.0); Hemoglobin 10.1 g/dl (14.0-18.0); Mean Corpuscular HGB Conc 32.5 g/dl (31.0-36.0); Mean Corpuscular Hemoglobin 28.5 pg (27.0-33.0); Mean Corpuscular Volume 87.6 fL (80.0-98.0); NRBC Abs Auto 0.000 X10*3/uL (0.0-0.012); NRBC Pct Auto 0.0 /100WBC (0.0-0.2); Platelet Count 296 X10*3/uL (160-400); Red Blood Count 3.55 X10*6/uL (4.60-5.80); White Blood Count 11.8 X10*3/uL (4.8-10.8)
[2024-09-19 13:08] LABS: Appearance Urine Clear; Glucose Urine UA Negative (Negative); PH 5.5 (5.0-9.0); Specific Gravity - Urine 1.010 (1.005-1.025); UMIC TRIGGER UA YES
[2024-09-19 13:19] LABS: Alanine Aminotransferase 22 U/L (0-40); Albumin Level 4.6 g/dL (3.5-5.0); Alkaline Phosphatase 98 U/L (39-117); Anion Gap 17 (12-20); Aspartate Amino Transferase 14 U/L (5-37); Blood Urea Nitrogen 87 mg/dL (9-16); Calcium 9.9 mg/dL (8.4-10.2); Carbon Dioxide 20 mmol/L (22-29); Chloride 112 mmol/L (96-108); Estimated Glomerular Filt Rate 13; Potassium 4.8 mmol/L (3.3-5.1); Sodium 144 mmol/L (135-145); Total Protein 8.2 g/dL (6.5-8.0); Uric Acid 9.7 mg/dL (3.4-7.0)
[2024-09-19 14:26] LABS: Parathyroid Hormone Intact 184.6 pg/mL (8.7-77.1)
[2024-09-19 14:40] LABS: Total Protein Urine Random 58 mg/dL (<12)
== END 2024-09-19 11:30 | disposition home or self-care (01) ==
LOC: HO.10HDL 11:29
PROVIDERS: Visit Provider Internal Medicine Hypertension Specialist
DX: I12.9 Hypertensive chronic kidney disease with stage 1 through stage 4 chronic kidney disease, or unspecified chronic kidney disease (principal); N18.4 Chronic kidney disease, stage 4 (severe)
CPT/HCPCS: 36415; 80053; 81001; 82570; 83970; 84156; 84550; 85027

== ENCOUNTER 2024-10-24 13:11 | Outpatient (AMB) | payer OTHER, SELFPAY ==
--- NOTE | 2024-10-24 13:12 | HO.NEPHOV ---
Vital Signs 10/24/24 13:13 Height 5 ft 10 in Weight 204 lb BMI 29.3 BP 142/84 H Blood Pressure Location Rt brachial Position Sitting Pulse 88 Pulse Source Pulse Oximeter Pulse Oximetry (%) 98 Oxygen Delivery Method Room Air Intake Visit Reasons: 1 MO [facility] Child Watch Attendant Required: No Accompanied by: Spouse Allergies No Known Allergies Allergy (Verified 10/24/24 13:14) Medication List - Last Reconciled 10/24/24 by Raad Yee MD allopurinol 100 mg PO DAILY aspirin 81 mg PO DAILY atorvastatin (Lipitor) 20 mg PO DAILY bisoprolol fumarate 7.5 mg (1.5 x 5 mg) PO DAILY bisoprolol fumarate 10 mg PO DAILY calcitriol 0.5 mcg PO DAILY coenzyme Q10 (Ultra CoQ10) PO sodium bicarbonate 650 mg PO TID PRN HPI Comments Details: 59-year-old male presenting with chronic kidney disease. The condition was identified following a blood test that showed kidney function at 13%. A biopsy was performed, but the root cause remains undetermined, with the condition described as chronic. He was seen by a Swimming Instructor few months ago and has decided to switch to my care The patient also has a history of essential hypertension, which has been present for approximately two to three years. He has undergone extensive serological workup which were essentially negative History of chronic right-sided pain. He does not take NSAIDs regularly. 10/24/24 The patient is a 59-year-old male presenting with chronic kidney disease. Hypertension is present, with a blood pressure of 140/84 mmHg. Advised to reduce salt intake and increase water consumption. Social History: - Nutritional intake: Advised to consume less salt and drink up to two liters of water daily. Diagnostic Results: - Kidney function: 13% PFSH Medical History Tachycardia Hypertension Osteoarthritis of right hip FHx: colon cancer Hypertensive kidney disease, stage IV Hyperlipidemia Surgical History No pertinent past surgical history Family History Father Colon cancer, Onset Age: 77 Mother Breast CA, Onset Age: 66 Social History Household Members Other:: , Housing: House Patient Tobacco Use Status: Never used Tobacco e-Cigarette/Vaping Use: Never Used service: No Current occupational status: employed Cognitive needs: No Hearing needs: No Vision needs: Yes Physical Exam Vital Signs: Last Vital Signs Pulse 88 10/24/24 13:13 BP 142/84 H 10/24/24 13:13 Pulse Ox 98 10/24/24 13:13 Oxygen Delivery Method Room Air 10/24/24 13:13 BMI result Body Mass Index 29.3 Results Reviewed Nephrology Results: Hgb, (14.0-18.0) 10.1 g/dl L 09/19/24 WBC, (4.8-10.8) 11.8 X10*3/uL H 09/19/24 Plt Count, (160-400) 296 X10*3/uL 09/19/24 Sodium, (135-145) 144 mmol/L 09/19/24 Potassium, (3.3-5.1) 4.8 mmol/L 09/19/24 Chloride, (96-108) 112 mmol/L H 09/19/24 Carbon Dioxide, (22-29) 20 mmol/L L 09/19/24 BUN, (9-16) 87 mg/dL H 09/19/24 Creatinine, (0.5-1.4) 4.67 mg/dL H* 09/19/24 Calcium, (8.4-10.2) 9.9 mg/dL 09/19/24 PTH Intact, (8.7-77.1) 184.6 pg/mL H 09/19/24 Urine Protein, (Neg-Trace) 100 (2+) mg/dL H 09/19/24 Urine Creatinine 89.44 mg/dL 09/19/24 Assessment & Plan Assessment & Plan (1) Hypertensive kidney disease, stage IV: Code(s): I12.9 - Hypertensive chronic kidney disease with stage 1 through stage 4 chronic kidney disease, or unspecified chronic kidney disease; N18.4 - Chronic kidney disease, stage 4 (severe) Category: Medical (2) Hypertension: Code(s): I10 - Essential (primary) hypertension Category: Medical Plan Pleasant 59-year-old man with stage 5 CKD. In May 2024 serum creatinine was 4.6 with a EGFR of 13 mL/minute. At present he has no signs or symptoms of uremia. Fluid status is acceptable. Thus far serological testing has been negative. He underwent a kidney biopsy in [facility] Goal at this point is to slow the progression disease. Continue to avoid nephrotoxic agents. Maintain adequate hydration. Stay on low-sodium diet. Continue Rocaltrol - will watch Ca and PTH He is currently being evaluated for renal transplantation. All questions answered Orders: Orders Basic Metabolic Panel 2 Months I10 - Essential (primary) hypertension, I12.9 - Hypertensive chronic kidney disease with stage 1 through stage 4 chronic kidney disease, or unspecified chronic kidney disease, N18.4 - Chronic kidney disease, stage 4 (severe) Complete Blood Count no Diff 2 Months I10 - Essential (primary) hypertension, I12.9 - Hypertensive chronic kidney disease with stage 1 through stage 4 chronic kidney disease, or unspecified chronic kidney disease, N18.4 - Chronic kidney disease, stage 4 (severe) Parathyroid Hormone Intact 2 Months I10 - Essential (primary) hypertension, I12.9 - Hypertensive chronic kidney disease with stage 1 through stage 4 chronic kidney disease, or unspecified chronic kidney disease, N18.4 - Chronic kidney disease, stage 4 (severe) Coding Level of Care Code Est Pt Level 4 (31139) Diagnoses Hypertensive kidney disease, stage IV I12.9; N18.4 Hypertension I10
[2024-10-24 13:13] VITALS: BP 142/84; PULSE 88; O2SAT 98; BMI 29.3
--- OUTSIDE RECORDS SUMMARY | 2024-10-24 15:34 | XMS_ITS | Encounter Summary ---
Author Organization [facility] Address [address] [place] [address] Phone Care Team Providers Care Mobile Sales Assistant Name Role Phone Talya Harrington MD Primary Care Provider [phone] Self-Referred, Patient Unavailable Unavailab le Encounter Details Date Type Department Care Team (Late st Contact Info) Description 08/18/2024 Procedure Pass [facility] MR Imaging, [place] [address] [place] [address] Social History Tobacco Use Types Packs/Day Years [...] high school, GED, job training, learning the Ukrainian language, technical skills, or developing parenting skills)? [...] Orientation Straight 07/21/2024 12 :27 PM EDT documented as of this encounter Plan of Treatment Upcoming Encounters Date Type Department Care Team (Late st Contact Info) Description 09/20/2024 Procedure Pass [facility] MR Imaging, [address] [place] [address] 12/19/2024 4:00 PM EST Appointment [facility] MR Imaging, [address] [place] [address] Kevin Rivera MD, MPH [address] [place] [address] [email or web address] 01/03/2025 1:30 PM EST Office Visit [facility] Urology [address] [place] [address] Kevin Rivera MD, MPH [address] [place] [address] [email or web address] documented as of this encounter Visit Diagnoses Not on filedocumented in this encounter Care Teams Mobile Sales Assistant Relationship Specialty Start Date End Date Talya Harrington MD [address] [place] [address] PCP - General Internal Medicine 07/21/24 Self-Referred, Patient Referring Physician 07/21/24 documented as of this encounter Additional Source Comments The information contained in this document represents components of the legal health record. It is not the complete legal health record.[facility]
--- OUTSIDE RECORDS SUMMARY | 2024-10-24 15:34 | XMS_ITS | Encounter Summary ---
Author Organization [facility] Address [address] [place] [address] Phone Care Team Providers Care Case Finisher Name Role Phone Talya Harrington MD Primary Care Provider [phone] Self-Referred, Patient Unavailable Unavailab le Encounter Details Date Type Department Care Team (Latest Contact Info) Description 09/18/2024 Ancillary Orders Social History Tobacco Use Types Packs/Day Years [...] high school, GED, job training, learning the Icelandic language, technical skills, or developing parenting skills)? [...] Upcoming Encounters Date Type Department Care Team ([facility] st Contact Info) Description 09/20/2024 Procedure Pass [facility] MR Imaging, [address] [place] [address] 12/19/2024 4:00 PM EST Appointment [facility] MR Imaging, [address] [place] [address] Kevin Rivera MD, MPH [address] [place] [address] [email or web address] 01/03/2025 1:30 PM EST Office Visit [facility] Urology [address] [place] [address] Kevin Rivera MD, MPH [address] [place] [address] [email or web address] documented as of this encounter Visit Diagnoses Not on filedocumented in this encounter Care Teams Case Finisher Relationship Specialty Start Date End Date Talya Harrington MD [address] [place] [address] PCP - General Internal Medicine 07/21/24 Self-Referred, Patient Referring Physician 07/21/24 documented as of this encounter Additional Source Comments The information contained in this document represents components of the legal health record. It is not the complete legal health record.[facility]
--- OUTSIDE RECORDS SUMMARY | 2024-10-24 15:34 | XMS_ITS | Clinical Summary ---
Author Organization [facility] Address [address] [facility] [address] [place] [address] Phone Care Team Providers Care Machining Supervisor Name Role Phone Talya Harrington MD Primary Care Provider [phone] Allergies No known active allergies Medications aspirin [...] tablet Take 0.5 mg by mouth Active sodium bicarbonate 650 MG tablet Take 1 tablet (650 mg total) by mouth in the morning and 1 tablet (650 mg total) in the evening and 1 tablet (650 mg total) before bedtime. 90 tablet 11 5 07/17/19 26 Active cholecalciferol (VITAMIN D-3) 250 MCG (39737 UT) capsule Take 1 capsule (10,000 Units total) by mouth every 7 (seven) days 12 capsule 5 10/15/19 25 Active Problems Problem Noted Date Diagnosed Date Renal failure syndrome 06/03/2024 Encounters Date Type Department Care Team Description 08/12/2024 Office Communication [facility] [address] [facility] [address] [place] [address] Cynthia Coreas 07/28/2024 Telephone [facility] [address] [facility] [address] [place] [address] Ed Romero MD 07/28/2024 Office Communication [facility] [address] [facility] [address] [place] [address] Cynthia Coreas from Last 3 Months Social History Tobacco [...] Screening: Sigmoidoscopy 08/02/2016 Influenza Vaccine (#1) 2024 Insurance [facility] Medicaid Care Teams Machining Supervisor Relationship Specialty Start Date End Date Talya Harrington MD [address] [place] [address] PCP - General Internal Medicine 06/07/24
--- OUTSIDE RECORDS SUMMARY | 2024-10-24 15:34 | XMS_ITS | Clinical Summary ---
Author Organization [facility] Address [address] [place] [address] [place] [address] Phone Care Team Providers Care Project Construction Manager Name Role Phone Talya Harrington MD Primary Care Provider [phone] Self-Referred, Patient Unavailable Unavailab le Allergies No known active allergies Medications allopurinol (ZYLOPRIM) 100 MG tablet Take 100 mg by mouth daily. 5 Active aspirin 81 MG EC tablet Take 81 mg by mouth daily. Active atorvastatin (LIPITOR) 20 MG tablet Take 20 mg by mouth daily. Active bisoprolol (ZEBETA) 10 MG tablet Take 1 tablet by mouth every morning. 5 Active sodium bicarbonate 650 mg tablet Take 650 mg by mouth. Take 1 tablet (650 mg total) by mouth in the morning and 1 tablet (650 mg total) in the evening and 1 tablet (650 mg total) before bedtime. 5 07/17/19 26 Active cholecalciferol, vitamin D3, (VITAMIN D3) 250 mcg (10,000 unit) capsule Take 10,000 Units by mouth once a week. 5 10/15/19 25 Encounters Date Type Department Care Team Description 09/20/2024 1:50 PM EDT Office Visit [facility] Urology [address] [facility] [place] [address] Amadeo Tobias MD, MPH Renal mass (Primary Dx) 09/18/2024 1:19 PM EDT - 09/18/2024 11:59 PM EDT Hospital Encounter [facility] MR Imaging, [place] [address] [place] [address] Amadeo Tobias MD, MPH Discharge Disposition: Home or Self Care 09/18/2024 Ancillary Orders 08/22/2024 Telephone [facility] Urology [address] [address] JakTatianna 08/18/2024 Procedure Pass [facility] MR Imaging, [address] [place] [address] 08/18/2024 Orders Only [facility] Urology [address] [address] Britta Sterling PA-C Renal mass (Primary Dx) 08/08/2024 1:30 PM EDT Office Visit [facility] [place] [address] [facility] [place] [address] Amadeo Tobias MD, MPH Renal mass (Primary Dx); Chronic kidney disease, unspecified CKD stage 08/08/2024 Telephone [facility] Urology [address] [place] [address] Tatianna Bendeict 07/25/2024 Ancillary Orders [facility] IM[facility] OUTSIDE IMG [address] [place] [address] Amadeo Tobias MD, MPH 07/25/2024 Ancillary Orders [facility] OUTSIDE IMG [address] [place] [address] Amadeo Tobias MD, MPH 07/25/2024 Ancillary Orders [facility] OUTSIDE IMG [address] [place] [address] Amadeo Tobias MD, MPH 07/25/2024 Ancillary Orders [facility] OUTSIDE IMG [address] [place] [address] Amadeo Tobias MD, MPH from Last 3 Months Social [...] high school, GED, job training, learning the Hebrew language, technical skills, or developing parenting skills)? [...] your housing situation today? I have manda elise 08/05/2024 How many times have you move [...] Sign Reading Time Taken Comments Blood Pressure 132/85 09/20/2024 1:43 PM EDT Pulse 67 09/20/2024 1:43 PM EDT Temperature 36.8 C (98.2 F) [...] st Contact Info) Description 09/20/2024 Procedure Pass [facility] MR Imaging, [address] [place] [address] 12/19/2024 4:00 PM EST Appointment [facility] MR Imaging, [address] [place] [address] Amadeo Tobias MD, MPH [address] [place] [address] [email or web address] 01/03/2025 1:30 PM EST Office Visit [facility] Urology [address] [place] [address] Amadeo Tobias MD, MPH [address] [place] [address] [email or web address] Health Maintenance Due Date Last Done [...] 08/02/2017 ZOSTER VACCINES (1 of 2) 08/02/2017 INFLUENZA VACCINE (#1) 2024 COVID-19 VACCINE (2024-2 6 season) 2024 06/07/2020, 05/17/2020 HEPATITIS A VACCINES Aged Out [...] Procedure Name Priority Date/Time Associated Diagnosis Comments NON-AUTOMATION SALES MANAGER CYTOLOGY, URINE/URINARY TRACT Routine 09/20/2024 2:25 PM EDT Renal mass NON-AUTOMATION SALES MANAGER CYTOLOGY, NON CSF, NON URINE Routine 09/20/2024 12:00 AM EDT MRI ABDOMEN (KIDNEYS) WITHOUT CONTRAST Routine 09/18/2024 2:40 PM EDT Renal mass from Last 3 Months Results * Urine cytology order (09/20/2024 2:25 PM EDT) Cytology Order Status Specimen received in Cytology Lab for processing. [facility] Urine 09/20/2024 2:25 PM EDT 09/20/2024 11:35 PM EDT us Amadeo Tobias MD, MPH URINE ORDERABLES Final Result [facility] [address] [place] [address] * Non-Lining Cleaner Cytology (09/20/2024 12:00 AM EDT) 09/20/2024 09/21/2024 Narrative [facility] - 09/23/2024 12:50 PM EDT CASE: [id number] PATIENT: JERICA CARTER Date: 1965 Sex: M [facility] Department of Pathology [address] [place] [address] CLIA License No.: [id number] Portable Trackman: Izaiah Chamorro MD, PhD Physician: AMADEO TOBIAS MD, MPH Procedure Date: 09/20/2024 Service Now Developer: LUIS Denny([facility]) Resident/Fellow: Naveed Long M.D. Pathologist: Izaiah Chamorro M.D., Ph.D. URINE, VOIDED FINAL CYTOLOGIC INTERPRETATION INTERPRETATION: NO MALIGNANT CELLS IDENTIFIED. DIAGNOSIS: Urothelial cells and squamous cells. Red blood cells. Few neutrophils. CLINICAL DATA History: other specified disorders of kidney and ureter. GROSS DESCRIPTION 45cc yellow fluid. MATERIALS Total slides: 1 , 1 Cytospin By his/her signature below, the senior physician certifies that he/she personally conducted a microscopic examination of the described specimen(s) and rendered or confirmed the diagnosis (es) related thereto. 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 Evaluate [...] report originally created by Farida Rice. us Amadeo Tobias MD, MPH IMG MR ABDOMEN Final R esult from Last [address] [place], [place] [address] [address] [place], [place] [address] [facility] [employer] ALL[employer] [facility] [employer] [facility] [employer] ALL[employer] [facility]CO [facility] ACO Care Teams Project Construction Manager Relationship Specialty Start Date End Date Talya Harrington MD [address] [facility] [place] [address] PCP - General Internal Medicine 07/21/24 Self-Referred, Patient Referring Physician 07/21/24 Additional Source Comments The information contained in this document represents components of the legal health record. It is not the complete legal health record.[facility]
--- OUTSIDE RECORDS SUMMARY | 2024-10-24 15:34 | XMS_ITS | Clinical Summary ---
Author Organization [facility] Address [address] [place] [address] Phone Care Team Providers Care Poultry Killer Name Role Phone Talya Harrington MD Primary Care Provider [phone] Allergies No known active allergies Medications bisoprolol [...] gallon at 8PM. 4000 mL 5 Active Active Problems Problem Noted Date Diagnosed Date FARHEEN (acute kidney injury) ([facility] V24) 06/04/19 25 Renal failure, unspecified chronicity 06/03/2024 Encounters Date Type Department Care Team Description 09/26/2024 Telephone Gastroenterology - [place] [address] [facility] [address] [facility] [address] [place] [address] Anne Tay MD from Last 3 Months Social History [...] Care Team (Late st Contact Info) Description 11/11/2024 3:30 PM EDT Appointment [facility] Endoscopy [address] [place] [id number] Karel Stout DO [facility] [place] [address] Health Maintenance Due Date Last Done Comments DTaP,Tdap,and Td Vaccines (1 - Tdap) 08/02/1986 Hepatitis B Vaccines (1 of 3 - 19+ 3-dose series) 08/02/1986 Pneumococcal Vaccine: 50+ Years (1 of 1 - PCV) 08/02/2017 Zoster Vaccines (1 of 2) 08/02/2017 Depression Screening 02/17/2024 Cholesterol Screening (Lipid Panel) 06/03/2024 Colorectal Cancer Screening: Colonoscopy 06/03/2024 HIV Screening 06/03/2024 Social Influencers of Health Screening 06/03/2024 COVID-19 Vaccine (3 - 2024-2 6 season) 2024 06/07/2020, 05/17/2020 Influenza Vaccine (#1) 2024 Hepatitis C Screening [...] this topic Medical Devices Implanted Type Area Channel Cementer Insole Machine Device Identifier Shelf Expiration Date Model / Serial / Lot Sponge Surgifoam Gel 12 X 7mm - [id number] - [id number] Implanted:Qty: 1 on 06/13/2024 by Chuyita Munoz MD at [facility] Hemostasis Left: Kidney [employer] [id number] 01/12/2028 1972 / [id number] / Procedures Procedure Name Priority Date/Time Associated Diagnosis Comments HEPATITIS C ANTIBODY Routine 06/04/2024 6:33 AM EDT from Last 3 Months or Most Recently Relevant to Health Maintenance Results * Hepatitis C antibody (06/04/2024 6:33 AM EDT) Pathologist [facility] Hepatitis C Antibody Negative Negative LAB CHEMISTRY METHOD 06/04/2024 9:32 AM EDT [facility] Blood Venous blood specimen / Unknown Venipuncture / Unknown 06/04/2024 6:33 AM EDT 06/04/2024 6:57 AM EDT us Manuel Nicole MD LAB BLOOD ORDERABLES Final Resu lt [facility] [address] [place] [address], from Last 3 Months or Most Recently Relevant to Health Maintenance Insurance [facility] Advance Directives * Full Code [...] currently active code status orders. Care Teams Poultry Killer Relationship Specialty Start Date End Date Talya Harrington MD [address] [place] [address] PCP - General Internal Medicine 06/03/24
== END 2024-10-24 13:31 | disposition home or self-care (01) ==
LOC: HO.HKA 13:12
PROVIDERS: PCP Internal Medicine; Visit Provider Internal Medicine Hypertension Specialist
DX: I12.9 Hypertensive chronic kidney disease with stage 1 through stage 4 chronic kidney disease, or unspecified chronic kidney disease (principal); N18.4 Chronic kidney disease, stage 4 (severe); I10 Essential (primary) hypertension
CPT/HCPCS: 99214

== ENCOUNTER → 2024-10-24 13:11 | Outpatient (BNVA) | payer OTHER, SELFPAY | PROVIDERS: PCP Internal Medicine; Visit Provider Internal Medicine Hypertension Specialist | DX: N18.4 Chronic kidney disease, stage 4 (severe) (principal); I10 Essential (primary) hypertension | CPT/HCPCS: 99212 ==

== ENCOUNTER 2025-01-20 12:16 | Outpatient (REF) | payer OTHER, SELFPAY ==
[2025-01-20 13:24] LABS: Hematocrit 32.5 % (42.0-52.0); Hemoglobin 10.1 g/dl (14.0-18.0); Mean Corpuscular HGB Conc 31.1 g/dl (31.0-36.0); Mean Corpuscular Hemoglobin 27.3 pg (27.0-33.0); Mean Corpuscular Volume 87.8 fL (80.0-98.0); NRBC Abs Auto 0.000 X10*3/uL (0.0-0.012); NRBC Pct Auto 0.0 /100WBC (0.0-0.2); Platelet Count 236 X10*3/uL (160-400); Red Blood Count 3.70 X10*6/uL (4.60-5.80); White Blood Count 11.5 X10*3/uL (4.8-10.8)
[2025-01-20 14:06] LABS: Anion Gap 16 (12-20); Blood Urea Nitrogen 90 mg/dL (9-16); Calcium 10.4 mg/dL (8.4-10.2); Carbon Dioxide 18 mmol/L (22-29); Chloride 112 mmol/L (96-108); Estimated Glomerular Filt Rate 11; Potassium 4.1 mmol/L (3.3-5.1); Sodium 142 mmol/L (135-145)
[2025-01-20 14:40] LABS: Parathyroid Hormone Intact 105.0 pg/mL (8.7-77.1)
== END 2025-01-20 12:17 | disposition home or self-care (01) ==
LOC: HO.10HDL 12:16
PROVIDERS: Visit Provider Internal Medicine Hypertension Specialist
DX: I12.9 Hypertensive chronic kidney disease with stage 1 through stage 4 chronic kidney disease, or unspecified chronic kidney disease (principal); N18.4 Chronic kidney disease, stage 4 (severe)
CPT/HCPCS: 36415; 80048; 83970; 85027

== ENCOUNTER 2025-02-02 13:26 | Outpatient (AMB) | payer OTHER, SELFPAY ==
[2025-02-02 13:28] VITALS: BP 134/70; PULSE 82; O2SAT 98; BMI 28.4
--- NOTE | 2025-02-02 13:28 | HO.NEPHOV ---
Vital Signs 02/02/25 13:28 Height 5 ft 10 in Weight 198 lb BMI 28.4 BP 134/70 Blood Pressure Location Lt brachial Position Sitting Pulse 82 Pulse Source Pulse Oximeter Pulse Oximetry (%) 98 Oxygen Delivery Method Room Air Intake Visit Reasons: Dec f/u w/labs [employer] Required: No Accompanied by: Spouse Allergies No Known Allergies Allergy (Verified 02/02/25 13:29) Medication List - Last Reconciled 02/02/25 by Raad Yee MD allopurinol 100 mg PO DAILY aspirin 81 mg PO DAILY atorvastatin (Lipitor) 20 mg PO DAILY bisoprolol fumarate 7.5 mg (1.5 x 5 mg) PO DAILY bisoprolol fumarate 10 mg PO DAILY calcitriol 0.5 mcg PO DAILY clonidine HCl 0.1 mg PO BEDTIME coenzyme Q10 (Ultra CoQ10) PO escitalopram oxalate (Lexapro) 10 mg PO DAILY sodium bicarbonate 650 mg PO TID PRN zolpidem (Ambien) 5 mg PO BEDTIME PRN HPI Comments Details: 59-year-old male presenting with chronic kidney disease. The condition was identified following a blood test that showed kidney function at 13%. A biopsy was performed, but the root cause remains undetermined, with the condition described as chronic. He was seen by a Senior Business Consultant few months ago and has decided to switch to my care The patient also has a history of essential hypertension, which has been present for approximately two to three years. He has undergone extensive serological workup which were essentially negative History of chronic right-sided pain. He does not take NSAIDs regularly. 10/24/24 The patient is a 59-year-old male presenting with chronic kidney disease. Hypertension is present, with a blood pressure of 140/84 mmHg. Advised to reduce salt intake and increase water consumption. Social History: - Nutritional intake: Advised to consume less salt and drink up to two liters of water daily. Diagnostic Results: - Kidney function: 13% 02/02/25 The patient is a 59 year old male presenting with a follow-up for advanced Chronic Kidney Disease (CKD), approaching End-Stage Renal Disease (ESRD). He reports feeling well, with a good appetite, and denies nausea, vomiting, dysuria, diarrhea, constipation, or leg swelling. Recent laboratory testing revealed a decline in kidney function to 11%, down from 13% at his last assessment. He has a history of secondary hyperparathyroidism, which is being managed with calcitriol, and his parathyroid hormone level has shown improvement, decreasing from 184 to 105. He is also on sodium bicarbonate to manage metabolic acidosis. The patient previously initiated a kidney transplant evaluation at [facility] and completed a colonoscopy as part of the workup, but he has not had any follow-up communication. His attended training for dialysis and has chosen home peritoneal dialysis as his preferred modality for future renal replacement therapy. [facility] Medical History Tachycardia Hypertension Osteoarthritis of right hip FHx: colon cancer Hypertensive kidney disease, stage IV Hyperlipidemia Surgical History No pertinent past surgical history Family History Father Colon cancer, Onset Age: 77 Mother Breast CA, Onset Age: 66 Social History Household Members Other:: , Housing: House Patient Tobacco Use Status: Never used Tobacco e-Cigarette/Vaping Use: Never Used service: No Current occupational status: employed Cognitive needs: No Hearing needs: No Vision needs: Yes Physical Exam Exam Exam: Physical Exam General: Awake. Comfortable. HENT: Neck supple. Mucosa moist. Pulmonary: Lungs aeration equal. No rales. Cardiology: Heart S1-S2 heard. No gallop. Abdomen: Soft. Non tender. Bowel sounds normal. Neurologic: No involuntary movements. No myoclonus. Extremities: No edema. No rash. Vital Signs: Last Vital Signs Pulse 82 02/02/25 13:28 BP 134/70 02/02/25 13:28 Pulse Ox 98 02/02/25 13:28 Oxygen Delivery Method Room Air 02/02/25 13:28 BMI result Body Mass Index 28.4 Results Reviewed Nephrology Results: Hgb, (14.0-18.0) 10.1 g/dl L 01/20/25 WBC, (4.8-10.8) 11.5 X10*3/uL H 01/20/25 Plt Count, (160-400) 236 X10*3/uL 01/20/25 Sodium, (135-145) 142 mmol/L 01/20/25 Potassium, (3.3-5.1) 4.1 mmol/L 01/20/25 Chloride, (96-108) 112 mmol/L H 01/20/25 Carbon Dioxide, (22-29) 18 mmol/L L 01/20/25 BUN, (9-16) 90 mg/dL H 01/20/25 Creatinine, (0.5-1.4) 5.26 mg/dL H* 01/20/25 Calcium, (8.4-10.2) 10.4 mg/dL H 01/20/25 PTH Intact, (8.7-77.1) 105.0 pg/mL H 01/20/25 Urine Protein, (Neg-Trace) 100 (2+) mg/dL H 09/19/24 Urine Creatinine 89.44 mg/dL 09/19/24 Assessment & Plan Assessment & Plan (1) Hypertensive kidney disease, stage IV: Code(s): I12.9 - Hypertensive chronic kidney disease with stage 1 through stage 4 chronic kidney disease, or unspecified chronic kidney disease; N18.4 - Chronic kidney disease, stage 4 (severe) Category: Medical (2) Hypertension: Code(s): I10 - Essential (primary) hypertension Category: Medical Plan Plan 1. Advanced Chronic Kidney Disease CKD 5 - Kidney function has declined - eGFR 11 ml/mt, . - The patient's blood pressure is well-controlled at 134/70 mmHg, - The patient was advised to increase water intake and limit dietary salt. - He was instructed not to take magnesium supplements due to the risk of hypermagnesemia in advanced kidney disease. - Repeat blood work will be done one week prior to the next visit. - Follow-up is scheduled in two months to re-evaluate. 2. Secondary Hyperparathyroidism - Management with calcitriol has been effective, as evidenced by the improvement in parathyroid hormone levels from 184 to 105. - The plan is to continue the current calcitriol treatment. 3. Metabolic Acidosis - The patient is taking sodium bicarbonate - The plan is to continue sodium bicarbonate therapy. 4. Kidney Transplant Evaluation - The patient's previous transplant evaluation at [facility] has stalled. - A new referral for transplant evaluation at [facility] 5. Preparation For Renal Replacement Therapy - Dialysis is not needed immediately but may be required in the coming months. - The patient has chosen home peritoneal dialysis after attending a training session. - The plan is to continue close monitoring and initiate peritoneal dialysis catheter placement approximately two-four weeks before the anticipated start of dialysis to allow for healing. 5. Mild Anemia No indication for Epogen yet Orders: Orders Parathyroid Hormone Intact 2 Months I10 - Essential (primary) hypertension, N18.5 - Chronic kidney disease, stage 5 Complete Blood Count no Diff 2 Months I10 - Essential (primary) hypertension, N18.5 - Chronic kidney disease, stage 5 Basic Metabolic Panel 2 Months I10 - Essential (primary) hypertension, N18.5 - Chronic kidney disease, stage 5 Coding Level of Care Code Est Pt Level 4 (77179) Diagnoses Hypertensive kidney disease, stage IV I12.9; N18.4 Hypertension I10
--- OUTSIDE RECORDS SUMMARY | 2025-02-02 17:33 | XMS_ITS | Clinical Summary ---
Author Organization [facility] Address [address] [place] [address] Phone Care Team Providers Care [employer] Finisher Name Role Phone Talya Harrington MD Primary Care Provider [phone] Allergies No known active allergies Medications bisoprolol [...] 1 tablet (100 mg total) by mouth daily. 5 Active escitalopram (LEXAPRO) 10 mg tablet 5 Active zolpidem (AMBIEN) 5 mg tablet 5 Active Active Problems Problem Noted Date Diagnosed Date FARHEEN (acute kidney injury) 06/03/2024 Renal failure, unspecified chronicity 06/03/2024 Encounters Date Type Department Care Team Description 11/15/2024 Results Follow-Up Gastroenterology - [facility] [address] [facility] [address] [facility] [address] [place] [phone] Archana Stout DO 11/11/2024 3:27 PM EDT Anesthesia Event [facility] Endoscopy [address] [place] [phone] Melvin Alonso MD 11/11/2024 2:33 PM EDT - 11/11/2024 11:59 PM EDT Hospital Encounter [facility] Endoscopy [address] [place] [phone] Archana Stout DO Spencer, Mark A, MD Colon cancer screening Discharge Disposition: Home or Self Care from Last 3 Months Medical History Medical History Date Comments Hypertension Arthritis Hyperlipidemia Chronic kidney disease SVT (supraventricular tachycardia) (CMS/HCC V24) Social History Tobacco Use Types Packs/Day Years Used Date Smoking Tobacco: Never Smokeless Tobacco: Never Tobacco Cessation:Counseling Given: Not Answered Interpersonal Safety Answer Date Record ed Physical Abuse Unrecognized value 11/11/2024 Verbal Abuse Unrecognized value 11/11/2024 Sex and Gender Information Value Date Recorded Sex Assigned at Not on file Legal Sex Male 8:14 PM EST Gender Identity Not on file Sexual Orientation Not on file Last Filed Vital Signs Vital Sign Reading Time Taken Comments Blood Pressure 137/80 11/11/2024 4:03 PM EDT Pulse 78 11/11/2024 4:03 PM EDT Temperature 36.9 C (98.5 F) 11/11/2024 2:46 PM EDT Respiratory Rate 15 11/11/2024 4:03 PM EDT Oxygen Saturation 100% 11/11/2024 4:03 PM EDT Inhaled Oxygen Concentration - - Weight 109 kg (240 lb) 11/11/2024 2:46 PM EDT Height 180.3 cm (5' 11 ) 11/11/2024 2:46 PM EDT Body Mass Index 33.47 11/11/2024 2:46 PM EDT Plan of Treatment Health Maintenance Due Date Last Done Comments Drug Screen 1965 Non-Opioid Controlled Substance Agreement 1965 DTaP,Tdap,and Td Vaccines (1 - Tdap) 08/02/1986 Hepatitis B Vaccines (1 of 3 - 19+ 3-dose series) 08/02/1986 Pneumococcal Vaccine: 50+ Years (1 of 1 - PCV) 08/02/2017 Zoster Vaccines (1 of 2) 08/02/2017 Depression Screening 02/17/2024 Cholesterol Screening (Lipid Panel) 06/03/2024 HIV Screening 06/03/2024 Social Influencers of Health Screening 06/03/2024 COVID-19 Vaccine (3 - 2024-2 6 season) 2024 06/07/2020, 05/17/2020 Influenza Vaccine (#1) 2024 Colorectal Cancer Screening: Colonoscopy 11/12/2027 11/11/2024 RSV Immunization Adult Patients (1 - 1-dose 75+ series) 08/02/2042 Hepatitis C Screening Completed 06/04/2024 HIB Vaccines [...] this topic Medical Devices Implanted Type Area Wig Stylist Device Identifier Shelf Expiration Date Model / Serial / Lot Sponge Surgifoam Gel 12 X 7mm - [id number] - [id number] Implanted:Qty: 1 on 06/13/2024 by Chuyita Munoz MD at [facility] Hemostasis Left: Kidney [employer] [id number] 01/12/2028 1972 / [id number] / Procedures Procedure Name Priority Date/Time Associated Diagnosis Comments COLONOSCOPY Routine 11/11/2024 3:42 PM EDT Colon cancer screening TISSUE EXAM Routine 11/11/2024 3:36 PM EDT Colon cancer screening HEPATITIS C ANTIBODY Routine 06/04/2024 6:33 AM EDT from Last 3 Months or Most Recently Relevant to Health Maintenance Results * COLONOSCOPY Anesthesia - MAC; [facility] ENDOSCOPY (11/11/2024 3:42 PM EDT) Anatomical Region Laterality Modality Endoscopy 11/11/2024 3:26 PM EDT Impressions 11/11/2024 3:44 PM EDT - Hemorrhoids found on perianal exam. - Three 6 to 8 mm polyps in the sigmoid colon and in the ascending colon, removed with a cold snare. Resected and retrieved. - The examination was otherwise normal on direct and retroflexion views. Recommendation: - Discharge patient to home. - High fiber diet. - Continue present medications. - Await pathology results. - Repeat colonoscopy for surveillance based on pathology results. Narrative 11/11/2024 3:44 PM EDT [facility] GI Patient Name: Barry Carter Procedure Date: 11/11/2024 3:26 PM Date of : 1965 Age: 59 Gender: Male Note Status: Finalized Attending MD: Archana Stout DO, [id number] Procedure Date No Time: 11/11/2024 Procedure: Colonoscopy Indications: Screening for colorectal malignant neoplasm Providers: Archana Stout DO Referring MD: Archana Stout DO Medicines: Monitored Anesthesia Care Complications: No immediate complications. Estimated blood loss: Minimal. Estimated Blood Loss: Estimated blood loss was minimal. Procedure: Pre-Anesthesia Assessment: - - Prior to the procedure, a History and Physical was performed, and patient medications and allergies were reviewed. The patient is competent. The risks and benefits of the procedure and the sedation options and risks were discussed with the patient. All questions were answered and informed consent was obtained. Patient identification and proposed procedure were verified by the physician, the nurse, the anesthesiologist, the dowel inspector and the health care sanitary technician in the pre-procedure area in the endoscopy suite. Mental Status Examination: alert and oriented. Airway Examination: normal oropharyngeal airway and neck mobility. Respiratory Examination: clear to auscultation. CV Examination: normal. Prophylactic Antibiotics: The patient does not require prophylactic antibiotics. Prior Anticoagulants: The patient has taken no anticoagulant or antiplatelet agents. ASA Grade Assessment: II - A patient with mild systemic disease. After reviewing the risks and benefits, the patient was deemed in satisfactory condition to undergo the procedure. The anesthesia plan was to use monitored anesthesia care (MAC). Immediately prior to administration of medications, the patient was re-assessed for adequacy to receive sedatives. The heart rate, respiratory rate, oxygen saturations, blood pressure, adequacy of pulmonary ventilation, and response to care were monitored throughout the procedure. The physical status of the patient was re-assessed after the procedure. After I obtained informed consent, the scope was passed under direct vision. Throughout the procedure, the patient's blood pressure, pulse, and oxygen saturations were monitored continuously. The Colonoscope was introduced through the anus and advanced to the cecum, identified by appendiceal orifice and ileocecal valve. The colonoscopy was performed without difficulty. The patient tolerated the procedure well. The quality of the bowel preparation was good. The ileocecal valve, appendiceal orifice, and rectum were photographed. Findings: Hemorrhoids were found on perianal exam. Three sessile polyps were found in the sigmoid colon and ascending colon. The polyps were 6 to 8 mm in size. These polyps were removed with a cold snare. Resection and retrieval were complete. Verification of patient identification for the specimen was done. Estimated blood loss was minimal. The exam was otherwise without abnormality on direct and retroflexion views. Procedure Code(s): --- Professional --- 39517, Colonoscopy, flexible; with removal of tumor(s), polyp(s), or other lesion(s) by snare technique Diagnosis Code(s): --- Professional --- Z12.11, Encounter for screening for malignant neoplasm of colon K64.9, Unspecified hemorrhoids D12.5, Benign neoplasm of sigmoid colon D12.2, Benign neoplasm of ascending colon CPT copyright 2020 [employer]. All rights reserved. The codes documented in this report are preliminary and upon core shaper sides review may be revised to meet current compliance requirements. ARCHANA Stout DO 11/11/2024 3:43:58 PM This report has been signed electronically.Archana Stout DO Number of Addenda: 0 Note Initiated On: 11/11/2024 3:26 PM Scope Withdrawal Time: 0 hours 8 minutes 49 seconds Scope In: 3:31:40 PM Scope Out: 3:42:05 PM Endoscopy Department at [facility] - [address] [place] [id number] Procedure Note Archana Stout DO - 11/11/2024 [facility] GI Patient Name: Barry Carter Procedure Date: 11/11/2024 3:26 PM Date of : 1965 Age: 59 Gender: Male Note Status: Finalized Attending MD: Archana Stout DO, [id number] Procedure Date No Time: 11/11/2024 Procedure: Colonoscopy Indications: Screening for colorectal malignant neoplasm Providers: Archana Stout DO Referring MD: Archana Stout DO Medicines: Monitored Anesthesia Care Complications: No immediate complications. Estimated blood loss: Minimal. Estimated Blood Loss: Estimated blood loss was minimal. Procedure: Pre-Anesthesia Assessment: - - Prior to the procedure, a History and Physicalwas performed, and patient medications and allergieswere reviewed. The patient is competent. The risks and benefits of the procedure and the sedation optionsand risks were discussed with the patient. Allquestions were answered and informed consent was obtained. Patient identification and proposed procedure were verified by the physician, the nurse, the anesthesiologist, the dowel inspector and thetechnician in the pre-procedure area in the endoscopy suite. Mental Status Examination: alert and oriented.Airway Examination: normal oropharyngeal airway and neck mobility. Respiratory Examination: clear to auscultation. CV Examination: normal. Prophylactic Antibiotics: The patient does not requireprophylactic antibiotics. Prior Anticoagulants: The patient has taken no anticoagulant or antiplatelet agents. ASA Grade Assessment: II - A patient with mild systemic disease. After reviewing the risks and benefits,the patient was deemed in satisfactory condition to undergo the procedure. The anesthesia plan was touse monitored anesthesia care (MAC). Immediately priorto administration of medications, the patient was re-assessed for adequacy to receive sedatives. The heart rate, respiratory rate, oxygen saturations, blood pressure, adequacy of pulmonary ventilation,and response to care were monitored throughout the procedure. The physical status of the patient was re-assessed after the procedure. After I obtained informed consent, the scope was passed under direct vision. Throughout theprocedure, the patient's blood pressure, pulse, and oxygen saturations were monitored continuously. The Colonoscope was introduced through the anus and advanced to the cecum, identified by appendiceal orifice and ileocecal valve. The colonoscopy was performed without difficulty. The patient tolerated the procedure well. The quality of the bowel preparation was good. The ileocecal valve,appendiceal orifice, and rectum were photographed. Findings: Hemorrhoids were found on perianal exam. Three sessile polyps were found in the sigmoidcolon and ascending colon. The polyps were 6 to 8 mm in size. These polyps were removed with a cold snare. Resection and retrieval were complete. Verificationof patient identification for the specimen was done. Estimated blood loss was minimal. The exam was otherwise without abnormality ondirect and retroflexion views. Procedure Code(s): --- Professional --- 00169, Colonoscopy, flexible; with removal of tumor(s), polyp(s), or other lesion(s) by snare technique Diagnosis Code(s): --- Professional --- Z12.11, Encounter for screening for malignantneoplasm of colon K64.9, Unspecified hemorrhoids D12.5, Benign neoplasm of sigmoid colon D12.2, Benign neoplasm of ascending colon CPT copyright 2020 [employer]. All rights reserved. The codes documented in this report are preliminary and upon core shaper sides reviewmay be revised to meet current compliance requirements. ARCHANA Stout DO 11/11/2024 3:43:58 PM This report has been signed electronically.Archana Stout DO Number of Addenda: 0 Note Initiated On: 11/11/2024 3:26 PM Scope Withdrawal Time: 0 hours 8 minutes 49 seconds Scope In: 3:31:40 PM Scope Out: 3:42:05 PM Endoscopy Department at [facility] - [address] [place] [id number] IMPRESSION: - Hemorrhoids found on perianal exam. - Three 6 to 8 mm polyps in the sigmoid colon andin the ascending colon, removed with a cold snare. Resected and retrieved. - The examination was otherwise normal on directand retroflexion views. Recommendation: - Discharge patient to home. - High fiber diet. - Continue present medications. - Await pathology results. - Repeat colonoscopy for surveillance based on pathology results. Archana Stout DO GI~PROCEDURE ORDERABLES Final Re sult * Tissue exam (11/11/2024 3:36 PM EDT) Final Diagnosis A. Large Intestine, Right/Ascendi ng Colon, polyps x2: - Tubular adenoma(s). B. Large Intestine, Transverse Colon, polyp x1: - Tubular adenoma. 11/15/2024 1:09 PM EDT [facility] at 1309 EDT Gross Description A. Large Intestine, Right/Ascendi ng Colon, polyp x2: Labeled ascending colon polyp x 2 . Received in formalin are five irregular contreras mucosal tissue fragments, ranging from 0.1 cm to 0.9 cm in greatest dimension, which are wrapped in paper and submitted in toto in one cassette, five pieces, multiple levels on one slide. B. Large Intestine, Transverse Colon, polyp x1: Labeled trans colon polyps x 1 . Received in formalin is a 0.2 cm irregular contreras mucosal tissue fragment which is wrapped in paper and submitted in toto in one cassette, one piece, multiple levels on one slide. QUETA 11/15/2024 1:09 PM EDT [facility] Disclaimer Unless otherwise specified, all tissue is 10% NB formalin fixed and paraffin embedded. 11/15/2024 1:09 PM EDT [facility] Tissue Ascending colon structure / Unknown 11/11/2024 3:36 PM EDT 11/11/2024 5:30 PM EDT Tissue specimen (specimen) Transverse colon structure / Unknown 11/11/2024 3:38 PM EDT 11/11/2024 5:30 PM EDT Archana Stout DO LAB PATHOLOGY ORDERABLES Final R esult Performing Organization Address City/[facility]/ZIP Co de Phone Number [facility] [address] [place] [address], [place] [phone] * Hepatitis C antibody (06/04/2024 6:33 AM EDT) Hepatitis C Antibody Negative Negative LAB CHEMISTRY METHOD 06/04/2024 9:32 AM EDT [facility] Blood Venous blood specimen / Unknown Venipuncture / Unknown 06/04/2024 6:33 AM EDT 06/04/2024 6:57 AM EDT Manuel Nicole MD LAB BLOOD ORDERABLES Final Resu lt Performing Organization Address City/[facility]/ZIP Co de Phone Number [facility] [address] [place] [address], [place] [phone] from Last 3 Months or Most Recently Relevant to Health Maintenance Insurance [facility] [employer] [facility] Advance Directives * Full [...] currently active code status orders. Care Teams [employer] Finisher Relationship Specialty Start Date End Date Talya Harrington MD [address] [place] [phone] PCP - General Internal Medicine 06/03/24
--- OUTSIDE RECORDS SUMMARY | 2025-02-02 17:34 | XMS_ITS | Clinical Summary ---
Author Organization [facility] Address [address] [place] [address] Phone Care Team Providers Care Import Customer Service Manager Name Role Phone Talya Harrington MD Primary Care Provider [phone] Self-Referred, Patient Unavailable Unavailab le Allergies No known active allergies Medications allopurinol (ZYLOPRIM) 100 MG tablet Take 100 mg by mouth daily. 06/06/2024 Active aspirin 81 MG EC tablet Take 81 mg by mouth daily. Active atorvastatin (LIPITOR) 20 MG tablet Take 20 mg by mouth daily. Active bisoprolol (ZEBETA) 10 MG tablet Take 1 tablet by mouth every morning. 07/14/2024 Active sodium bicarbonate 650 mg tablet Take 650 mg by mouth. Take 1 tablet (650 mg total) by mouth in the morning and 1 tablet (650 mg total) in the evening and 1 tablet (650 mg total) before bedtime. 07/16/2024 07/17/19 26 Active Encounters Date Type Department Care Team Description 01/03/2025 1:30 PM EST Office Visit [facility] [address] [place] [address] Kevin Rivera MD, MPH Renal mass (Primary Dx) 12/19/2024 3:15 PM EST - 12/19/2024 11:59 PM EST Hospital Encounter [facility], [place] [address] [place] [address] Kevin Rivera MD, MPH Discharge Disposition: Home or Self Care 09/20/2024 Procedure Pass [facility], [place] [address] [place] [address] from Last 3 Months Social History Tobacco Use Types Packs/Day Years Used Date Smoking Tobacco: Never Smokeless Tobacco: Never Tobacco Cessation:Counseling Given: Not Answered Child or Family Care Answer Date Record ed Do you have problems with on e of the following making it difficult for you to work, study, or receive health care? No 08/05/2024 Education Answer Date Recorded Are you interested in help w ith more adult education (for example, completing high school, GED, job training, learning the Latvian language, technical skills, or developing parenting skills)? [...] EDT Inhaled Oxygen Concentration - - Weight 88.5 kg (195 lb) 01/03/2025 1:31 PM EST Height 174.9 cm (5' 8.85 ) 01/03/2025 1:31 PM ES T Body Mass Index 28.92 01/03/2025 1:31 PM EST Plan of Treatment Upcoming Encounters Date Type Department Care Team (Late st Contact Info) Description 01/03/2025 Procedure Pass [facility] [place] [address] 10/03/2025 12:45 PM EDT Appointment [facility] [place] [address] Kevin Rivera MD, MPH [address] [place] [phone] [email or web address] 10/03/2025 2:30 PM EDT Office Visit [facility] [address] [place] [address] Kevin Rivera MD, MPH [address] [place] [phone] [email or web address] Health Maintenance Due Date Last Done Comments Adult Td,Tdap Booster 1967 LIPID PANEL 1967 DEPRESSION SCREENING 1979 HEPATITIS C SCREENING 08/02/1985 HIV ONE-TIME SCREENING (18-6 5 YEARS) 08/02/1985 SCREENING FOR DIABETES 08/02/2002 COLOGUARD 08/02/2012 COLONOSCOPY 08/02/2012 COLORECTAL CANCER SCREENING 08/02/2012 FIT TEST 08/02/2012 FOBT 08/02/2012 SIGMOIDOSCOPY 08/02/2012 VIRTUAL COLONOSCOPY 08/02/2012 PNEUMOCOCCAL VACCINES (50+ years) (1 of 1 - PCV) 08/02/2017 ZOSTER VACCINES (1 of 2) 08/02/2017 INFLUENZA VACCINE (#1) 2024 COVID-19 VACCINE (3 - 2024-2 6 season) 2024 06/07/2020, 05/17/2020 RSV VACCINE (1 - 1-dose 75+ series) 08/02/2042 SMOKING STATUS SCREENING (On ce After 26 Yrs) Completed 01/03/2025 HEPATITIS A VACCINES Aged Out No long [...] Procedure Name Priority Date/Time Associated Diagnosis Comments NON-RAILROAD CAR LOADER CYTOLOGY Routine 01/03/2025 2:08 PM EST Renal mass MRI ABDOMEN (KIDNEYS) WITHOUT CONTRAST Routine 12/19/2024 3:55 PM EST Renal mass from Last 3 Months Results * Non-Project Manager Finance Cytology (01/03/2025 2:08 PM EST) Final Diagnosis A. NON-RAILROAD CAR LOADER CYTOLOGY: URINARY BLADDER, URINE SPECIMEN ADEQUACY: Satisfactory for evaluation. INTERPRETATION: Negative for high-grade urothelial carcinoma. DIAGNOSIS: Reactive urothelial cells. Squamous cells. Neutrophils. 01/16/2025 6:12 PM EST [facility] at 1812 EST Reviewed by LUIS Aquino(ASCP) Non/FNA Disclaimer By their signature above, the Pathologist listed as making the Final Diagnosis certifies that they have personally reviewed the case and confirmed the diagnosis. All slides and stains were of sufficient quality to establish the diagnosis, unless otherwise stated. 01/16/2025 6:12 PM EST [facility] Clinical History ICD-10: Renal mass Renal lesion 01/16/2025 6:12 PM EST [facility] Gross Description A. NON-RAILROAD CAR LOADER CYTOLOGY: URINARY BLADDER, URINE: 40 ml of yellow fluid received labeled with two patient identifiers. 1 Cytospin prepared. 01/16/2025 6:12 PM EST [facility] A. Adequacy Satisfactory for evaluation. 01/16/2025 6:12 PM EST [facility] A. Interpretation Negative for high-grade urothelial carcinoma. 01/16/2025 6:12 PM EST [facility] A. Diagnosis Reactive urothelial cells. Squamous cells. Neutrophils. 01/16/2025 6:12 PM EST [facility] Urine (Urinary Bladder) Non-Blood Collection / Unknown 01/03/2025 2:08 PM EST 01/04/2025 1:32 PM EST us Kevin Rivera MD, MPH LAB CYTOLOGY ORDERABLES Final Result Performing Organization Address City/State/[facility] Co de Phone Number [facility] [address] [place] [phone] * MRI ABDOMEN (KIDNEYS) WITHOUT CONTRAST (12/19/2024 3:55 PM EST) Anatomical Region Laterality Modality Abdomen Magnetic Resonan ce 12/20/2024 9:02 AM EST Impressions 12/20/2024 9:10 AM EST 1. No solid renal masses identified on this noncontrast examination. 2. Bilateral renal cysts, some of which are hemorrhagic. Narrative 12/20/2024 9:10 AM EST MRI ABDOMEN (KIDNEYS) WITHOUT CONTRAST Referring clinician's provided indication for this examination in Epic: * Renal mass, normal renal function TECHNIQUE: Multiplanar MR imaging of the abdomen was performed using T1, T2, fat saturated, and diffusion weighted techniques. No intravenous contrast material was administered. COMPARISON: MRI September 18, 2024. ABSENCE OF INTRAVENOUS CONTRAST DECREASES SENSITIVITY FOR DETECTION OF FOCAL LESIONS AND VASCULAR PATHOLOGY. FINDINGS: Lower Chest: Normal. No effusions. Liver: Normal. No focal lesions. Biliary: Normal. No biliary ductal dilatation. Spleen: Normal. No splenomegaly or focal lesions. Pancreas: Normal. No masses or ductal dilatation. Adrenal Glands: Normal. No nodules. Kidneys/Ureters: Bilateral renal cysts, some of which are hemorrhagic. The largest hemorrhagic cyst is at the lower pole of the left kidney, measuring 0.9 cm. No solid masses or hydronephrosis identified on this noncontrast examination. Bowel: Normal. No dilatation or wall thickening. Peritoneum/Retroperitoneum: Normal. No masses or fluid. Lymph Nodes: Normal. No lymphadenopathy. Vessels: No abdominal aortic aneurysm. Bones/Soft Tissues: No focal marrow replacing lesions. Procedure Note Carl Tesfaye MD - 12/20/2024 MRI ABDOMEN (KIDNEYS) WITHOUT CONTRAST Referring clinician's provided indication for this examination in Epic: *Renal mass, normal renal function TECHNIQUE: Multiplanar MR imaging of the abdomen was performed using T1,T2, fat saturated, and diffusion weighted techniques. No intravenouscontrast material was administered. COMPARISON: MRI September 18, 2024. ABSENCE OF INTRAVENOUS CONTRAST DECREASES SENSITIVITY FOR DETECTION OFFOCAL LESIONS AND VASCULAR PATHOLOGY. FINDINGS: Lower Chest: Normal. No effusions. Liver: Normal. No focal lesions. Biliary: Normal. No biliary ductal dilatation. Spleen: Normal. No splenomegaly or focal lesions. Pancreas: Normal. No masses or ductal dilatation. Adrenal Glands: Normal. No nodules. Kidneys/Ureters: Bilateral renal cysts, some of which are hemorrhagic. Thelargest hemorrhagic cyst is at the lower pole of the left kidney,measuring 0.9 cm. No solid masses or hydronephrosis identified on thisnoncontrast examination. Bowel: Normal. No dilatation or wall thickening. Peritoneum/Retroperitoneum: Normal. No masses or fluid. Lymph Nodes: Normal. No lymphadenopathy. Vessels: No abdominal aortic aneurysm. Bones/Soft Tissues: No focal marrow replacing lesions. IMPRESSION: 1. No solid renal masses identified on this noncontrast examination. 2. Bilateral renal cysts, some of which are hemorrhagic. us Kevin Rivera MD, MPH IMG MR ABDOMEN Final R esult from Last 3 Months Insurance [facility] ACO [employer] Care Teams Import Customer Service Manager Relationship Specialty Start Date End Date Talya Harrington MD [address] [place] [address] PCP - General Internal Medicine 07/21/24 Self-Referred, Patient Referring Physician 07/21/24 Additional Source Comments The information contained in this document represents components of the legal health record. It is not the complete legal health record.[facility]
--- OUTSIDE RECORDS SUMMARY | 2025-02-02 17:34 | XMS_ITS | Encounter Summary ---
Author Organization [facility] Address [address] [place] [address] Phone Care Team Providers Care Twister Frame Tender Name Role Phone Talya Harrington MD Primary Care Provider [phone] Self-Referred, Patient Unavailable Unavailab le Encounter Details Date Type Department Care Team (Late st Contact Info) Description 08/18/2024 Procedure Pass [facility] MR Imaging, [place] [address] [place] [address] Social History Tobacco Use Types Packs/Day Years [...] high school, GED, job training, learning the Lithuanian language, technical skills, or developing parenting skills)? [...] st Contact Info) Description 01/03/2025 Procedure Pass [facility], [address] [place] [address] 10/03/2025 12:45 PM EDT Appointment [facility], [address] [place] [address] Kevin Rivera MD, MPH [address] [place] [phone] [email or web address] 10/03/2025 2:30 PM EDT Office Visit [facility] [address] [place] [address] Kevin Rivera MD, MPH [address] [place] [address] [email or web address] documented as of this encounter Visit Diagnoses Not on filedocumented in this encounter Care Teams Twister Frame Tender Relationship Specialty Start Date End Date Talya Harrington MD [address] [place] [address] PCP - General Internal Medicine 07/21/24 Self-Referred, Patient Referring Physician 07/21/24 documented as of this encounter Additional Source Comments The information contained in this document represents components of the legal health record. It is not the complete legal health record.[facility]
--- OUTSIDE RECORDS SUMMARY | 2025-02-02 17:34 | XMS_ITS | Encounter Summary ---
Author Organization [facility] Address [address] [place] [address] Phone Care Team Providers Care Projection Engineer Name Role Phone Talya Harrington MD Primary Care Provider [phone] Self-Referred, Patient Unavailable Unavailab le Encounter Details Date Type Department Care Team (Late st Contact Info) Description 09/20/2024 Procedure Pass [facility] MR Imaging, [place] [place] [address] Social History Tobacco Use Types Packs/Day Years [...] high school, GED, job training, learning the Israeli language, technical skills, or developing parenting skills)? [...] st Contact Info) Description 01/03/2025 Procedure Pass [facility] MR Imaging, [address] [place] [address] 10/03/2025 12:45 PM EDT Appointment [facility] MR Imaging, [address] [place] [address] Kevin Rivera MD, MPH [address] [place] [address] [email or web address] 10/03/2025 2:30 PM EDT Office Visit [facility] [address] [place] [address] Kevin Rivera MD, MPH [address] [place] [address] [email or web address] documented as of this encounter Visit Diagnoses Not on filedocumented in this encounter Care Teams Projection Engineer Relationship Specialty Start Date End Date Talya Harrington MD [address] [place] [address] PCP - General Internal Medicine 07/21/24 Self-Referred, Patient Referring Physician 07/21/24 documented as of this encounter Additional Source Comments The information contained in this document represents components of the legal health record. It is not the complete legal health record.[facility]
--- OUTSIDE RECORDS SUMMARY | 2025-02-02 17:34 | XMS_ITS | Encounter Summary ---
Author Organization [facility] Address [address] [place] [address] Phone Care Team Providers Care Chef German Name Role Phone Talya Harrington MD Primary Care Provider [phone] Self-Referred, Patient Unavailable Unavailab le Encounter Details [...] high school, GED, job training, learning the Lao language, technical skills, or developing parenting skills)? [...] Upcoming Encounters Date Type Department Care Team ([facility] st Contact Info) Description 01/03/2025 Procedure Pass [facility] MR Imaging, [address] [place] [address] 10/03/2025 12:45 PM EDT Appointment [facility] MR Imaging, [address] [place] [address] Kevin Rivera MD, MPH [address] [place] [phone] [email or web address] 10/03/2025 2:30 PM EDT Office Visit [facility] [address] [place] [phone] Kevin Rivera MD, MPH [address] [place] [phone] [email or web address] documented as of this encounter Visit Diagnoses Not on filedocumented in this encounter Care Teams Chef German Relationship Specialty Start Date End Date Talya Harrington MD [facility] [place] [address] PCP - General Internal Medicine 07/21/24 Self-Referred, Patient Referring Physician 07/21/24 documented as of this encounter Additional Source Comments The information contained in this document represents components of the legal health record. It is not the complete legal health record.[facility]
--- OUTSIDE RECORDS SUMMARY | 2025-02-02 17:34 | XMS_ITS | Clinical Summary ---
Author Organization [facility] Address [address] [address] [place] [address] Phone Care Team Providers Care Loom Blower Name Role Phone Talya Harrington MD Primary Care Provider [phone] Allergies No known active allergies Medications aspirin (ST SANDRA) 81 MG EC tablet Take 81 mg by mouth in the morning. Active atorvastatin (LIPITOR) 20 MG tablet Take 20 mg by mouth every night Active bisoprolol (ZEBETA) 5 MG tablet TAKE 7.5 MG (1.5 X 5 MG) ORALLY DAILY Active calcitriol (ROCALTROL) 0.5 MCG capsule Take 0.5 mcg by mouth in the morning. 06/07/2024 Active LORazepam (ATIVAN) 0.5 MG tablet Take 0.5 mg by mouth Active sodium bicarbonate 650 MG tablet Take 1 tablet (650 mg total) by mouth in the morning and 1 tablet (650 mg total) in the evening and 1 tablet (650 mg total) before bedtime. 90 tablet 11 07/16/2024 07/17/19 26 Active Active Problems Problem Noted Date Diagnosed Date Renal failure syndrome 06/03/2024 Social History Tobacco Use Types Packs/Day [...] Sigmoidoscopy 08/02/2016 Influenza Vaccine (#1) 2024 Insurance [facility] Medicaid Care Teams Loom Blower Relationship Specialty Start Date End Date Talya Harrington MD [address] [place] [address] PCP - General Internal Medicine 06/07/24
== END 2025-02-02 13:43 | disposition home or self-care (01) ==
LOC: HO.HKA 13:27
PROVIDERS: PCP Internal Medicine; Visit Provider Internal Medicine Hypertension Specialist
DX: I12.9 Hypertensive chronic kidney disease with stage 1 through stage 4 chronic kidney disease, or unspecified chronic kidney disease (principal); N18.4 Chronic kidney disease, stage 4 (severe); I10 Essential (primary) hypertension
CPT/HCPCS: 99214

== ENCOUNTER → 2025-02-02 13:26 | Outpatient (BNVA) | payer OTHER, SELFPAY | PROVIDERS: PCP Internal Medicine; Visit Provider Internal Medicine Hypertension Specialist | DX: I12.9 Hypertensive chronic kidney disease with stage 1 through stage 4 chronic kidney disease, or unspecified chronic kidney disease (principal); N18.4 Chronic kidney disease, stage 4 (severe); D63.1 Anemia in chronic kidney disease; N25.81 Secondary hyperparathyroidism of renal origin; E87.20 Acidosis, unspecified | CPT/HCPCS: 99212 ==